=== PATIENT | female | born 1975 | race Caucasian/White ===

== ENCOUNTER 2018-10-31 16:24 | Outpatient (REF) | payer BC, SELFPAY ==
[2018-10-31 22:01] LABS: Vitamin B12 399 pg/mL (193-986)
[2018-10-31 22:47] LABS: Magnesium 2.1 mg/dL (1.8-2.4)
== END 2018-10-31 16:44 ==
LOC: NCHCN 16:24
PROVIDERS: PCP Nurse Practitioner Family; Visit Provider Nurse Practitioner Family
DX: E78.5 Hyperlipidemia, unspecified (principal); M54.5 Low back pain; R05 Cough; R41.840 Attention and concentration deficit; G43.909 Migraine, unspecified, not intractable, without status migrainosus; K58.9 Irritable bowel syndrome, unspecified; E66.3 Overweight; F41.8 Other specified anxiety disorders
CPT/HCPCS: 82565; 82607; 83735

== ENCOUNTER 2019-10-22 16:49 | Outpatient (REF) | payer OTHER, SELFPAY ==
[2019-10-22 22:11] LABS: ALT 22 U/L (14-59); AST 14 U/L (15-37); Albumin 3.8 g/dL (3.4-5.0); Alkaline Phosphatase 46 U/L (46-116); BUN 15 mg/dL (7-18); Bilirubin, Total 0.3 mg/dL (0.2-1.0); CREATININE 0.76 mg/dL (0.55-1.02); Calculated LDL 151 mg/dL; Chloride 109 mmol/L (98-107); Cholesterol 231 mg/dL (<200); Glucose 96 mg/dL (74-106); HDL Cholesterol 54 mg/dL (40-60); Magnesium 1.9 mg/dL (1.8-2.4); Sodium 146 mmol/L (136-145); Total Protein 6.9 g/dL (6.4-8.2); Triglyceride 131 mg/dL (<150); Vitamin B12 355 pg/mL (193-986)
== END 2019-10-22 17:09 ==
LOC: NCHCN 16:49
PROVIDERS: PCP Nurse Practitioner Family; Visit Provider Nurse Practitioner Family
DX: E78.5 Hyperlipidemia, unspecified (principal); R53.83 Other fatigue; G43.909 Migraine, unspecified, not intractable, without status migrainosus; K58.9 Irritable bowel syndrome, unspecified; R41.840 Attention and concentration deficit; J30.9 Allergic rhinitis, unspecified; L29.9 Pruritus, unspecified; K21.9 Gastro-esophageal reflux disease without esophagitis; Z00.00 Encounter for general adult medical examination without abnormal findings
CPT/HCPCS: 80053; 80061; 82607; 83735

== ENCOUNTER 2020-02-25 02:16 | Outpatient (CLI) | payer OTHER, SELFPAY ==
[2020-02-25 14:46] LABS: Iron 50 ug/dL (50-170); Total Iron Binding Capacity 303 ug/dL (250-450)
[2020-02-25 15:07] LABS: ALT 26 U/L (14-59); AST 18 U/L (15-37); Alkaline Phosphatase 55 U/L (46-116); Anion Gap 9.6 mmol/L (3-11); BUN 15 mg/dL (7-18); Bilirubin, Total 0.3 mg/dL (0.2-1.0); CO2 26.4 mmol/L (21.0-32.0); CREATININE 0.77 mg/dL (0.55-1.02); Calcium 9.2 mg/dL (8.5-10.1); Chloride 101 mmol/L (98-107); Ferritin 27 ng/mL (8-252); Glucose 90 mg/dL (74-106); Potassium 4.1 mmol/L (3.5-5.1); Sodium 137 mmol/L (136-145); TSH 1.32 uIU/mL (0.36-3.74); Total Protein 7.6 g/dL (6.4-8.2)
[2020-02-29 13:08] LABS: Celiac gene pairs present? Yes
== END 2020-02-25 02:36 ==
PROVIDERS: PCP Nurse Practitioner Family; Visit Provider Internal Medicine Gastroenterology
DX: K59.00 Constipation, unspecified (principal); K90.41 Non-celiac gluten sensitivity
CPT/HCPCS: 36415; 80053; 86816; 82728; 83540; 83550; 84443

== ENCOUNTER 2020-06-20 04:14 | Outpatient (CLI) | payer OTHER, SELFPAY ==
--- NOTE | 2020-06-20 08:30 | DI.RAD_ITS ---
EXAM: 2D digital imaging was performed. CLINICAL HISTORY: CONSTIPATION, K59.09, SITZ MARKER STUDY, ? COLONIC INTERTIA. COMPARISON: No exams were available for comparison TECHNIQUE: Supine views of the abdomen performed. FINDINGS: There is a moderate amount of stool in the colon. Sitz markers are present. They lie predominantly in the right abdomen. The majority of the markers appear to be in the cecum, ascending colon and pos sibly transverse colon. DATA REPOSITORY: RADIATION DOSE DELIVERED:
== END 2020-06-20 04:34 ==
PROVIDERS: PCP Nurse Practitioner Family; Visit Provider Internal Medicine Gastroenterology
DX: K59.09 Other constipation (principal)
CPT/HCPCS: 74018

== ENCOUNTER 2020-06-24 03:35 | Outpatient (CLI) | payer OTHER, SELFPAY ==
--- NOTE | 2020-06-24 08:40 | DI.RAD_ITS ---
EXAM: XR ABDOMEN FLAT PLATE CLINICAL HISTORY: CONSTIPATION,K59.09,SITZ MARKER STUDY, ? COLONIC INTERTIA TECHNIQUE: 2D digital imaging was performed. COMPARISON: CR XR ABDOMEN FLAT PLATE from 06/20/2020 FINDINGS: Moderate to increased quantity of stool is noted throughout the colon. Approximately 1/2 of the Sit z markers remain present in the right colon. There are 3 markers seen near the splenic flexure and t wo in the descending colon. Three markers are present in the region of the rectum. IMPRESSION: Increased quantity of stool. Slow colonic transit time.
== END 2020-06-24 03:55 ==
PROVIDERS: PCP Nurse Practitioner Family; Visit Provider Internal Medicine Gastroenterology
DX: K59.01 Slow transit constipation (principal)
CPT/HCPCS: 74018

== ENCOUNTER 2020-06-26 02:25 | Outpatient (CLI) | payer OTHER, SELFPAY ==
--- NOTE | 2020-06-26 08:51 | DI.RAD_ITS ---
EXAM: XR ABDOMEN FLAT PLATE INDICATION: SITZ MARKER STUDY,? COLONIC INERTIA. COMPARISON: CR XR ABDOMEN FLAT PLATE from 06/24/2020 TECHNIQUE: 2D digital imaging was performed. FINDINGS: A large quantity of stool is again noted throughout the colon. There is no small bowel dilatation. There is 1 Sitz marker in the region of the cecum. Two Sitz markers are seen in the transverse colo n. The remaining markers are noted in the descending colon. There are 2 markers in the rectum. IMPRESSION: Persistence of multiple Sitz markers, consistent with slow colonic transit time. Large quantity of s tool. DATA REPOSITORY: RADIATION DOSE DELIVERED:
== END 2020-06-26 02:45 ==
PROVIDERS: PCP Nurse Practitioner Family; Visit Provider Internal Medicine Gastroenterology
DX: R19.5 Other fecal abnormalities (principal)
CPT/HCPCS: 74018

== ENCOUNTER 2020-10-22 14:54 | Emergency (ER) | payer OTHER, SELFPAY ==
[2020-10-22 15:03] VITALS: BP 133/73; PULSE 95; RESP 16; O2SAT 100
[2020-10-22 15:13] LABS: Bilirubin Negative (Negative); Blood Trace-intact (Negative); Clarity Clear (Clear); Glucose Negative (Negative); Ketones Negative (Negative); Leukocyte Esterase Negative (Negative); Nitrite Negative (Negative); Urobilinogen 0.2 EU/dL (Up TO 0.2)
[2020-10-22 15:23] LABS: Bacteria Moderate HPF (Negative); C & S Indicated? Yes; Casts Negative LPF (Negative); Crystals Negative HPF (Negative); Epithelial Cells Few HPF (Negative); Mucus Negative (Negative); RBC 0-2 HPF (0-2); WBC 0-2 HPF (0-5)
--- NOTE | 2020-10-22 15:45 | DI.CT_ITS ---
EXAM: CT RENAL COLIC WO CLINICAL HISTORY: rt flank pain. TECHNIQUE: Imaging Protocol: Axial computed tomography images with coronal and sagittal reformatted images were created and reviewed. COMPARISON: No exams were available for comparison FINDINGS: ABDOMEN: Lung Bases: Normal where visualized. Liver: Normal density. No measurable mass. Gallbladder and biliary tract: No radiodense calculus or biliary ductal dilation. Pancreas: Normal density, no abnormal calcifications or inflammatory process. Spleen: Normal. Kidneys: Normal size, contour and axis.No radiodense stones or obstructive uropathy. No masses seen. Adrenal glands: No mass is seen. Lymph nodes: Within normal limits. Abdominal Aorta: Abdominal portion non-dilated. PELVIS: Bladder:Symmetric distention, no gross wall thickening. Bowel: No obstruction or bowel wall thickening. Appendix is unremarkable. Peritoneal cavity: No ascites, collection or mesenteric inflammatory response Reproductive organs: Within normal limits. Bones: Within normal limits. Soft Tissues: Within normal limits. IMPRESSION: No evidence of nephrolithiasis or hydronephrosis. RADIATION DOSE DELIVERED: 1,041.96mGy.cm Total DLP DATA REPOSITORY: All CT scans at this facility are submitted to the National Radiology Data Registry (NRDR) Dose Index Registry (DIR) with the [employer] (ACR). RADIATION OPTIMIZATION: All CT scans at this facility use at least one of these dose optimization te chniques: automated exposure control; mA and/or kV adjustment per patient size (includes targeted exa ms where dose is matched to clinical indication); or iterative reconstruction.
--- NOTE | 2020-10-22 15:45 | RT.EKG_ITS ---
APPROVED REPORT Exam: Resting ECG Patient Location: E HR:72 bpm ECG Measurements Heart Rate 72 AXIS SC 171 P 58 QRSd 98 QRS -24 QT 400 T 38 QTc 439 Conclusion Sinus rhythm...normal P axis, V-rate 60- 99
[2020-10-22 16:05] LABS: ALT 25 U/L (14-59); AST 18 U/L (15-37); Albumin 3.7 g/dL (3.4-5.0); Alkaline Phosphatase 44 U/L (46-116); Anion Gap 13.5 mmol/L (3-11); BUN 14 mg/dL (7-18); Bilirubin, Total 0.2 mg/dL (0.2-1.0); CO2 19.5 mmol/L (21.0-32.0); CREATININE 0.67 mg/dL (0.55-1.02); Calcium 8.7 mg/dL (8.5-10.1); Chloride 106 mmol/L (98-107); Glucose 96 mg/dL (74-106); Potassium 3.7 mmol/L (3.5-5.1); Sodium 139 mmol/L (136-145); Total Protein 7.5 g/dL (6.4-8.2)
[2020-10-22] MEDS: Ketorolac 15 MG/ML VIAL IVP (16:09)
[2020-10-22] MEDS: Lactated Ringers 1,000 ML 125 ML IV (16:09)
[2020-10-22 16:11] LABS: Abs Immature Grans 0.01 10^3/uL (0.0-0.06); Absolute Basophil Count 0.04 10^3/uL (0.0-0.2); Absolute Lymphocyte Count 1.54 10^3/uL (1.2-3.4); Absolute Monocyte Count 0.47 10^3/uL (0.1-0.8); Absolute Neutrophil Count 4.59 10^3/uL (1.2-6.7); Basophils % 0.6; Eosinophils % 2.9; HCT 45.7 % (36.0-46.0); HGB 15.3 g/dL (11.2-15.7); Immature Grans % 0.1; Lymphocytes % 22.5; MCHC 33.5 % (32.0-36.0); MCV 92.5 fL (80-95); Monocytes % 6.9; Nucleated RBC 0 %; Platelet Count 282 10^3/uL (130-400); RBC 4.94 10^6/uL (3.93-5.22); WBC 6.85 10^3/uL (4.4-10.8)
--- NOTE | 2020-10-22 16:30 | ED.GENADUL_ITS ---
Discharge Plan Disposition Patient Disposition: HOME Condition: Stable Discharge Details Clinical Impression: Prolonged QT interval, Acute right flank pain Primary Care Provider: Rachel Murray ED Provider: Sunday Corrigan Home Meds and New Rx's Prescriptions: Continued esomeprazole magnesium [Nexium] 40 mg capsule,delayed release(DR/EC) 40 mg PO DAILY RF: 0 sennosides [Natural Senna Laxative] 8.6 mg tablet 8.6 mg PO DAILY PRNRF: 0 gabapentin 300 mg capsule 300 mg PO TID RF: 0 multivitamin [Daily Multi-Vitamin] 1 EACH tablet 1 ea PO DAILY RF: 0 ibuprofen 800 MG tablet 800 mg PO TID PRN PRNQty: 20 RF: 0 acetaminophen [Mapap Extra Strength] 500 MG tablet 1 tab PO PRN PRNRF: 0 Discontinued amitriptyline 25 mg tablet 25 mg PO QHS Qty: 30 RF: 3 Discharge Instructions Additional Instructions: Please stop taking amitriptyline given prolonged QT interval noted on ECG. Discuss ongoing headache management with your neurologist. Please contact your primary care physician to arrange follow-up. Return to the ER for any worsening or new concerning symptoms. Referrals: Rachel Murray [Primary Care Provider] - Medical Decision Making 1636??45-year-old female here with right flank pain that started yesterday, feels like an ache. No associated anorexia. Abdominal exam is benign. Consider renal colic and ureteral stone versus musculoskeletal versus other. Urinalysis was reviewed and is not consistent with infectious process. Plan to obtain CT of the abdomen pelvis to assess for acute surgical pathology. Toradol 15 mg IV for pain. Patient also notes that she has had some dizzy spells when she is taking her amitriptyline for her headaches which she started recently. I did obtain an ECG and she has a prolonged QTc interval at 465. I will recommend that she stop taking nortriptyline and discuss this with her doctor. 172 --CT the abdomen pelvis was reviewed and interpreted by radiology: No renal ureteric or urinary bladder calculus. No hydronephrosis. No free air and no significant fluid collection. Vasculature unremarkable with no abdominal aortic aneurysm. Reproductive findings unremarkable. No other concerning findings noted. Labs reviewed and nondiagnostic. No leukocytosis. Suspect musculoskeletal etiology. Plan for discharge with outpatient follow-up. I do think she should be reassessed later this week by primary care physician. Disposition decision was made weighing the risks and benefits of hospitalization versus outpatient treatment, the risk for further decompensation, and the patient's wishes. The patient was stable and requested discharge. Prior to discharge, my usual and customary return precautions were reviewed with the patient - this included follow-up instructions and reason to return to the emergency department if condition worsens, does not improve as expected, or other new concerns arise. HPI General Mode of arrival: ambulatory . Date/Time Provider Initiated Documentation: 10/22/20 15:40 . Limitations to Documentation: no limitations . Information obtained by: patient . HPI Narrative: 45-year-old female with history of asthma, anxiety, depression, GERD, migraine headaches, presents with chief complaint of right flank pain that radiates to her lower right abdomen. Pain started in her back yesterday around 4 PM and has migrated lower and left around her flank to lower abdomen. Pain is moderate to severe and feels sharp. She has no associated fever. No dysuria or hematuria. No nausea vomiting. No chest pain or shortness of breath. Related Data Home Medications Medication Instructions Recorded Confirmed multivitamin [Daily Multi-Vitamin] 1 ea PO DAILY 02/09/13 10/22/20 ibuprofen 800 mg PO TID PRN PRN #20 tab 03/30/13 10/22/20 acetaminophen [Mapap Extra 1 tab PO PRN PRN 01/05/15 10/22/20 Strength] esomeprazole magnesium 40 mg 40 mg PO DAILY 08/26/20 10/22/20 capsule,delayed release gabapentin 300 mg capsule 300 mg PO TID 08/26/20 10/22/20 sennosides 8.6 mg tablet 8.6 mg PO DAILY PRN 08/26/20 10/22/20 Previous Rx's Medication Instructions Recorded ibuprofen 800 mg PO TID PRN PRN #20 tab 03/30/13 Allergies Allergy/AdvReac Type Severity Reaction Status Date / Time No Known Allergies Allergy Unverified 10/22/20 15:09 General Stated Complaint: Urinary LANE: 3 Review of Systems All systems reviewed & are unremarkable except as noted in HPI and below Constitutional Constitutional: Denies fever(s) Genitourinary Genitourinary: Reports as per HPI FORMERLY [facility], [facility] Medical History Asthma Depression Gastroesophageal reflux disease Hyperlipidemia IBS (irritable bowel syndrome) Migraine headache without aura Surgical History Arthroplasty of knee Dilation and curettage x3 Repair ankle Family History Mother Personal history of malignant neoplasm Breast Cancer Father Hypertensive disorder, systemic arterial Heart disease Sister Hypertensive disorder, systemic arterial Heart disease Social History Smoking/Tobacco Use Status: Never Smoking risk assessment performed?: Yes Alcohol Intake: current Alcohol Intake frequency: 3 or more drinks per day Drug use: Never Substance use type: does not use Household members: significant other Housing: house Number of Children: 2 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 Pets and animals: Yes Pets and animals: cat(s) What type of physical activity do you participate in: none Seatbelt use: always Do you feel safe at home: Yes Do you feel safe in your relationship?: Yes History History Para 2 Hx # Term Pregnancies Multiple births Hx # Pregnancies Ectopic pregnancies AB induced Hx Number of Living Children AB spontaneous Exam Const General: cooperative and no acute distress HENMT Mouth: moist mucous membranes Eyes Conjunctivae: normal conjunctivae Sclera: normal sclerae Neck Neck: trachea midline and supple Resp Auscultation: clear to auscultation bilaterally, no rales, no rhonchi and no wheezes Cardio Rate: regular rate and not tachycardic Rhythm: regular rhythm GI Palpation: soft, not firm, no guarding, no masses, not rigid and nontender Back/Spine/Pelvis Back: CVA tenderness (rt) Sacrum: no ecchymosis, no erythema and no swelling Coccyx: no tenderness Skin General skin exam: no rashes or lesions noted Neuro General: patient alert, patient awake, patient oriented x3 and tone normal Extrem General: no edema Psych Appearance: grossly normal Mental Status: mental status grossly normal Course Vital Signs Vital signs: Vital Signs Pulse 95 H 10/22/20 15:03 Respiratory Rate 16 10/22/20 15:03 Blood Pressure 133/73 10/22/20 15:03 Pulse Oximetry 100 10/22/20 15:03 Pulse 95 H 10/22/20 15:03 Respiratory Rate 16 10/22/20 15:03 Respiratory Effort Non-Labored 10/22/20 15:06 Blood Pressure 133/73 10/22/20 15:03 Blood Pressure Position Sitting 10/22/20 15:03 Pulse Oximetry 100 10/22/20 15:03 Oxygen Delivery Method Room Air 10/22/20 15:03 Oxygen Flow Rate 0 10/22/20 15:03 Pain Level 4 10/22/20 15:07 Comment 10/22/20 15:03 Lab/Test Results Lab/Test Results: 10/22/20 15:00 Urine - Reflex from Ua Urine Culture - Pending Laboratory Tests Range/Units 10/22/20 10/22/20 10/22/20 15:00 15:35 16:05 WBC (4.4-10.8) 10^3/uL 6.85 RBC (3.93-5.22) 10^6/uL 4.94 Hgb (11.2-15.7) g/dL 15.3 Hct (36.0-46.0) % 45.7 MCV (80-95) fL 92.5 MCH (27.0-33.0) pg 31.0 MCHC (32.0-36.0) % 33.5 RDW (11.7-14.6) % 13.0 Plt Count (130-400) 10^3/uL 282 MPV (8.0-11.0) fL 10.0 Immature Gran % 0.1 Neutrophils % 67.0 Lymphocytes % 22.5 Monocytes % 6.9 Eosinophils % 2.9 Basophils % 0.6 Nucleated RBC % % 0 Absolute Neutrophils (1.2-6.7) 10^3/uL 4.59 Absolute Lymphocytes (1.2-3.4) 10^3/uL 1.54 Absolute Monocytes (0.1-0.8) 10^3/uL 0.47 Absolute Eosinophils (0.0-0.7) 10^3/uL 0.20 Absolute Basophils (0.0-0.2) 10^3/uL 0.04 Sodium (136-145) mmol/L 139 Potassium (3.5-5.1) mmol/L 3.7 Chloride (98-107) mmol/L 106 Carbon Dioxide (21.0-32.0) mmol/L 19.5 L Anion Gap (3-11) mmol/L 13.5 H BUN (7-18) mg/dL 14 Creatinine (0.55-1.02) mg/dL 0.67 Estimated GFR/1.73 m2 (mL/min/1.73m2) >= 60.00 Glucose (74-106) mg/dL 96 Calcium (8.5-10.1) mg/dL 8.7 Total Bilirubin (0.2-1.0) mg/dL 0.2 AST (15-37) U/L 18 ALT (14-59) U/L 25 Alkaline Phosphatase (46-116) U/L 44 L Total Protein (6.4-8.2) g/dL 7.5 Albumin (3.4-5.0) g/dL 3.7 Urine Color (Yellow) Yellow Urine Clarity (Clear) Clear Urine pH (5-8) 7.0 Ur Specific [place] (1.005-1.025) 1.020 Urine Protein (Negative) mg/dL Negative Urine Ketones (Negative) mg/dL Negative Urine Blood (Negative) Trace-intact H Urine Nitrite (Negative) Negative Urine Bilirubin (Negative) Negative Urine Urobilinogen (Up TO 0.2) EU/dL 0.2 Ur Leukocyte Esterase (Negative) Negative Urine RBC (0-2) HPF 0-2 Urine WBC (0-5) HPF 0-2 Ur Epithelial Cells (Negative) HPF Few Urine Crystals (Negative) HPF Negative Urine Bacteria (Negative) HPF Moderate Urine Casts (Negative) LPF Negative Urine Mucus (Negative) Negative Ur Culture Indicated? Yes Urine Glucose (Negative) mg/dL Negative POC Urine Test Start: 10/22/20 15:07 Freq: Status: Complete Protocol: Document 10/22/20 15:09 ALBERTINA (Rec: 10/22/20 15:09 [id number]) Test(Urine)-POC POC- Test(urine) Negative POC- Test(urine) Negative
--- NOTE | 2020-10-22 16:35 | DI.VRAD_ITS ---
PROCEDURE INFORMATION: Exam: CT Abdomen And Pelvis Without Contrast Exam date and time: 10/22/2020 3:57 PM Age: 45 years old Clinical indication: Abdominal pain; Flank; Right TECHNIQUE: Imaging protocol: Computed tomography of the abdomen and pelvis without contrast. COMPARISON: CT ABD PELVIS WITH CONTRAST 03/29/2016 8:26 AM FINDINGS: Lungs: The visualized lung bases are clear. Liver: Normal. No mass. Gallbladder and bile ducts: Normal. No calcified stones. No ductal dilation. Pancreas: Normal. No ductal dilation. Spleen: Normal. No splenomegaly. Adrenal glands: Normal. No mass. Kidneys and ureters: No renal, ureteric, or urinary bladder calculus. No hydronephrosis. Stomach and bowel: Unremarkable. No obstruction. No mucosal thickening. Appendix: Normal appendix. No acute appendicitis. Intraperitoneal space: Unremarkable. No free air. No significant fluid collection. Vasculature: Unremarkable. No abdominal aortic aneurysm. Lymph nodes: Unremarkable. No enlarged lymph nodes. Urinary bladder: Unremarkable as visualized. Reproductive: Unremarkable as visualized. Bones/joints: Unremarkable. No acute fracture. Soft tissues: Unremarkable. IMPRESSION: 1. No renal, ureteric, or urinary bladder calculus. No hydronephrosis. Dictated and Authenticated by: Vel Coburn MD. Ordering:LAZARA Brand MD
[2020-10-22 17:41] VITALS: BP 127/73; PULSE 79; TEMP 36.8; O2SAT 98
[2020-10-22] MEDS: Normal Saline Flush 10 ML SYR IVP (17:41)
--- NOTE | 2020-10-22 17:51 | NUR.NOTE ---
referral faxed to [facility] for PCP f/u for 10/24/20.Nursing Note:
== END 2020-10-22 17:48 | disposition home or self-care (01) ==
PROVIDERS: Emergency Provider Student in an Organized Health Care Education/Training Program; PCP Nurse Practitioner Family
DX: R94.31 Abnormal electrocardiogram [ECG] [EKG] (principal); R42 Dizziness and giddiness; T43.015A Adverse effect of tricyclic antidepressants, initial encounter; M54.5 Low back pain; R10.31 Right lower quadrant pain; Z87.440 Personal history of urinary (tract) infections
CPT/HCPCS: 36415; 80053; 93005; 96361; 96374; 99285; 74176; 81003; 81015; 85025; 87086; 93010; 99284; J1885

== ENCOUNTER 2021-06-09 03:24 | Outpatient (CLI) | payer OTHER, SELFPAY ==
--- NOTE | 2021-06-09 | DI.MAMMO_ITS ---
Exam(s) MAMMO SCREENING EXAM: MAMMO SCREENING CLINICAL HISTORY: SCREENING, Z12.31, FAM HX BREAST CA, Z80.3 TECHNIQUE: Mammograms were interpreted according to the usual protocol including computer analysis w [employer] CAD system, tomosynthesis and C-view imaging. COMPARISON: 2012 FINDINGS: The breasts are composed of heterogeneously dense fibroglandular densities, Breast Density category C . No suspicious microcalcifications are seen. There is a circumscribed nodule seen in the subareolar r egion of the left breast, not present on the previous exam. Ultrasound is recommended for further ev aluation.. No skin thickening or abnormal axillary lymph nodes are seen. IMPRESSION: BI-RADS Cat 0 - Assessment Incomplete: Need additional imaging evaluation. Left breast ultrasound i s recommended. Breast Density Category C, heterogeneously Dense. The mammogram demonstrates the patient's breast tissue is dense. Dense breast tissue is very common a nd is not abnormal but dense breast tissue can make it harder to find cancer on a mammogram. Also, de nse breast tissue may increase breast cancer risk. This information about the result of the mammogram report was provided to the patient to raise their awareness. Use this report when you speak with the patient about their risks for breast cancer, which includes their family history. At that time, you may recommend additional screening tests (Ultrasound or MRI) as they might be useful based on their r isk. A negative radiographic report should not delay biopsy if a dominant or clinically suspicious mass is present. Up to ten percent of cancers are not identified on mammography. A negative report may reinforce clinical impression. Adenosis and dense breasts may obscure an underlying neoplasm. False positive reports average 6 to 10%.
== END 2021-06-09 03:44 ==
PROVIDERS: PCP Nurse Practitioner Family; Visit Provider Nurse Practitioner Family
DX: Z12.31 Encounter for screening mammogram for malignant neoplasm of breast (principal); Z80.3 Family history of malignant neoplasm of breast; R92.8 Other abnormal and inconclusive findings on diagnostic imaging of breast; N63.42 Unspecified lump in left breast, subareolar
CPT/HCPCS: 77063; 77067

== ENCOUNTER 2021-09-07 14:49 | Outpatient (CLI) | payer OTHER, SELFPAY ==
--- NOTE | 2021-09-07 | DI.RAD_ITS ---
Exam(s) XR CHEST 2V PA LATERAL EXAM: XR CHEST 2V PA LATERAL CLINICAL HISTORY: SOB, R06.02, H/O COVID, ? PNEUMONIA TECHNIQUE: 2D digital imaging was performed. COMPARISON: No exams were available for comparison FINDINGS: MEDIASTINUM: Normal. HEART: Normal. PULMONARY VASCULATURE: Normal. LUNGS: Clear. No infiltrates are visible. PLEURAL SPACE: No pleural effusion or pneumothorax. BONE:Unremarkable for age. IMPRESSION: No acute abnormality. DATA REPOSITORY: RADIATION DOSE DELIVERED:
== END 2021-09-07 15:09 ==
PROVIDERS: PCP Nurse Practitioner Family; Visit Provider Nurse Practitioner Family
DX: R06.02 Shortness of breath (principal)
CPT/HCPCS: 71046

== ENCOUNTER 2021-10-06 16:05 | Outpatient (REF) | payer OTHER, SELFPAY ==
[2021-10-06 15:02] LABS: Abs Immature Grans 0.02 10^3/uL (0.0-0.06); Absolute Basophil Count 0.08 10^3/uL (0.0-0.2); Absolute Eosinophil Count 0.13 10^3/uL (0.0-0.7); Absolute Lymphocyte Count 1.28 10^3/uL (1.2-3.4); Absolute Monocyte Count 0.66 10^3/uL (0.1-0.8); Absolute Neutrophil Count 4.42 10^3/uL (1.2-6.7); Basophils % 1.2; HCT 42.8 % (36.0-46.0); HGB 14.1 g/dL (11.2-15.7); Immature Grans % 0.3; Lymphocytes % 19.4; MCH 30.5 pg (27.0-33.0); MCHC 32.9 % (32.0-36.0); MCV 92.6 fL (80-95); MPV 10.7 fL (8.0-11.0); Neutrophils % 67.1; Nucleated RBC 0 %; Platelet Count 326 10^3/uL (130-400); RBC 4.62 10^6/uL (3.93-5.22); RDW 13.5 % (11.7-14.6); RDW-SD 45.7 fL; WBC 6.59 10^3/uL (4.4-10.8)
[2021-10-06 15:32] LABS: ALT 25 U/L (14-59); AST 16 U/L (15-37); Albumin 3.9 g/dL (3.4-5.0); Alkaline Phosphatase 58 U/L (46-116); Anion Gap 11.7 mmol/L (3-11); BUN 17 mg/dL (7-18); Bilirubin, Total 0.2 mg/dL (0.2-1.0); CO2 21.3 mmol/L (21.0-32.0); CREATININE 0.8 mg/dL (0.55-1.02); Calcium 9.3 mg/dL (8.5-10.1); Chloride 107 mmol/L (98-107); Glucose 78 mg/dL (74-106); Potassium 4.2 mmol/L (3.5-5.1); Sodium 140 mmol/L (136-145); TSH (W/Ref FT4) 1.35 uIU/mL (0.36-3.74); Total Protein 6.9 g/dL (6.4-8.2)
== END 2021-10-06 16:06 | disposition home or self-care (01) ==
LOC: NCHCN 16:05
PROVIDERS: PCP Nurse Practitioner Family; Visit Provider Nurse Practitioner Family
DX: E78.5 Hyperlipidemia, unspecified (principal); R53.83 Other fatigue; E66.3 Overweight
CPT/HCPCS: 80053; 84443; 85025

== ENCOUNTER 2022-06-01 09:54 | Outpatient (REF) | payer OTHER, SELFPAY ==
--- NOTE | 2022-06-01 08:15 | PAPFT_PTH ---
PATIENT: Cata Griggs LOC: [facility]#:[id number] AGE/SX: 47/F ROOM: RE06/01/[address]: Rachel Murray : 1975 BED: DIS: 06/01/2022 SPEC #: [id number] RECD: 06/01/22 15:01 STATUS: PORFIRIO DOZIER #: [id number] BELEN: 06/01/22 08:[address]: Rachel Murray DEPT: [facility] Cytology RECD BY: Nicole Diaz Tissues: 1 - CX/ENDOCX FOR PAP SMEARS Procedures: PAP THIN PREP/UVM Screening HPV DNA PROBE Comments: [id number]
[2022-06-01 16:54] LABS: Calculated LDL 154 mg/dL (<100); Cholesterol 230 mg/dL (<200); HDL Cholesterol 56 mg/dL (40-60); Magnesium 2.1 mg/dL (1.8-2.4); Triglyceride 104 mg/dL (<150); Vitamin B12 595 pg/mL (193-986)
== END 2022-06-01 09:55 | disposition home or self-care (01) ==
LOC: NCHCN 09:54
PROVIDERS: PCP Nurse Practitioner Family; Visit Provider Nurse Practitioner Family
DX: E78.5 Hyperlipidemia, unspecified; K21.9 Gastro-esophageal reflux disease without esophagitis; G43.909 Migraine, unspecified, not intractable, without status migrainosus; F41.8 Other specified anxiety disorders; I45.81 Long QT syndrome; R07.9 Chest pain, unspecified; M79.671 Pain in right foot; Z12.4 Encounter for screening for malignant neoplasm of cervix; Z11.51 Encounter for screening for human papillomavirus (HPV)
CPT/HCPCS: 80061; 88142; 82607; 83735; 87624

== ENCOUNTER → 2022-06-14 02:33 | Outpatient (CLI) | payer OTHER, SELFPAY ==
--- NOTE | 2022-06-14 12:20 | DI.MAMMO_ITS ---
Exam(s) MAMMO SCREENING EXAM: MAMMO SCREENING CLINICAL HISTORY: SCREENING, Z12.31,FAMILY H/O BREAST CA,Z80.3,FIBROADENOMA,D24.9 TECHNIQUE: Bilateral full field digital CC and MLO mammographic images were obtained with 3D tomosyn thesis and utilizing computer aided detection (CAD). COMPARISON: Available for comparison. FINDINGS: Masses/Architectural Distortion: No suspicious masses or areas of architectural distortion are seen. There is a stable nodule in the retroareolar region of the left breast. The nodule now contains a b iopsy clip. Microcalcifications: No suspicious pleomorphic-type are seen. Skin Thickening/Nipple Retraction: None. IMPRESSION: 1. No significant interval change with no specific features of malignancy noted. 2. Unless there is more urgent need, screening mammography is recommended, as per [employer] guidelines. BI-RADS Category 2 - Benign Findings Breast Density - Category C - Heterogeneously dense Breast density category C or D implies that the patient has dense breast tissue. Dense breast tissue is very common and is not abnormal but dense breast tissue can make it harder to find cancer on a ma mmogram. Also, dense breast tissue may increase their breast cancer risk. This information about the result of the mammogram report was provided to the patient to raise their awareness. Use this report when you speak with the patient about their risks for breast cancer, which includes their family hist ory. At that time, you may recommend for more screening tests (Ultrasound or MRI) as they might be us eful based on their risk. A negative radiographic report should not delay biopsy if a dominant or clinically suspicious mass is present. Up to ten percent of cancers are not identified on mammography. A negative report may reinforce clinical impression. Adenosis and dense breasts may obscure an underlying neoplasm. False positive reports average 6 to 10%. Patient will receive a letter notifying them of these results.
== END ==
PROVIDERS: PCP Nurse Practitioner Family; Visit Provider Nurse Practitioner Family
DX: Z12.31 Encounter for screening mammogram for malignant neoplasm of breast (principal); R92.8 Other abnormal and inconclusive findings on diagnostic imaging of breast
CPT/HCPCS: 77063; 77067

== ENCOUNTER 2023-05-10 14:34 | Outpatient (CLI) | payer OTHER, SELFPAY ==
--- NOTE | 2023-05-10 14:00 | DI.RAD_ITS ---
Exam(s) XR HIP PELVIS ADULT BL EXAM: XR HIP PELVIS ADULT BL CLINICAL HISTORY: bilateral hip pain. TECHNIQUE: 2D digital imaging was performed. COMPARISON: No exams were available for comparison FINDINGS: 3 views No evidence of pelvic nor hip fracture. No obvious degenerative changes in the hips. No evidence of hip dysplasia. No evidence of avascular necrosis. No osteophytes. Bone density normal. No osseou s lesions. SI joints unremarkable. IMPRESSION: No significant osseous findings in the pelvis and hips. DATA REPOSITORY: RADIATION DOSE DELIVERED:
== END 2023-05-10 14:35 | disposition home or self-care (01) ==
LOC: DIORS 14:35
PROVIDERS: PCP Nurse Practitioner Family; Referring Provider Nurse Practitioner Family; Visit Provider Student in an Organized Health Care Education/Training Program
DX: M25.551 Pain in right hip (principal); M25.552 Pain in left hip
CPT/HCPCS: 73521

== ENCOUNTER 2023-06-09 16:20 | Outpatient (REF) | payer OTHER, SELFPAY ==
[2023-06-09 20:47] LABS: ESR 18 mm/hr (0-20)
[2023-06-09 20:48] LABS: Abs Immature Grans 0.02 10^3/uL (0.0-0.06); Absolute Basophil Count 0.05 10^3/uL (0.0-0.2); Absolute Eosinophil Count 0.09 10^3/uL (0.0-0.7); Absolute Monocyte Count 0.65 10^3/uL (0.1-0.8); Absolute Neutrophil Count 4.13 10^3/uL (1.2-6.7); Basophils % 0.8; Eosinophils % 1.4; HCT 43.5 % (36.0-46.0); HGB 14.6 g/dL (11.2-15.7); Immature Grans % 0.3; Lymphocytes % 24.5; MCH 31.1 pg (27.0-33.0); MCHC 33.6 % (32.0-36.0); MCV 93 fL (80-95); MPV 10.5 fL (8.0-11.0); Monocytes % 9.9; Neutrophils % 63.1; Platelet Count 329 10^3/uL (130-400); RBC 4.69 10^6/uL (3.93-5.22); RDW 13.3 % (11.7-14.6); RDW-SD 44.9 fL; WBC 6.54 10^3/uL (4.4-10.8)
[2023-06-09 21:07] LABS: Total Iron Binding Capacity 314 ug/dL (250-450)
[2023-06-09 21:23] LABS: ALT 29 U/L (14-59); AST 18 U/L (15-37); Albumin 3.8 g/dL (3.4-5.0); Alkaline Phosphatase 56 U/L (46-116); Anion Gap 8.7 mmol/L (3-11); BUN 11 mg/dL (7-18); Bilirubin, Total 0.3 mg/dL (0.2-1.0); CO2 26.3 mmol/L (21.0-32.0); CREATININE 0.8 mg/dL (0.55-1.02); Calcium 9.3 mg/dL (8.5-10.1); Chloride 102 mmol/L (98-107); Estimated GFR 90.27 (mL/min/1.73m2); Ferritin 27 ng/mL (8-252); Glucose 109 mg/dL (74-106); Magnesium 1.9 mg/dL (1.8-2.4); Sodium 137 mmol/L (136-145); TSH (W/Ref FT4) 1.48 uIU/mL (0.36-3.74); Vitamin B12 628 pg/mL (193-986)
[2023-06-09 21:33] LABS: C-Reactive Protein 0.28 mg/dL (0.0-0.3)
[2023-06-09 22:25] LABS: Iron 79 ug/dL (50-170)
[2023-06-10 18:42] LABS: Rheumatoid Factor <8.6 IU/mL (<12.0)
[2023-06-13 10:01] LABS: Lyme Ab w Rflx to Lyme Confirm Negative (Negative)
[2023-06-13 11:02] LABS: CA 125 16 U/mL (<30)
[2023-06-13 14:25] LABS: ANA Interpretation Negative (Negative)
[2023-06-14 07:39] LABS: Anaplasma phagocytophilum Negative (Negative); B. miyamotoi PCR Negative (Negative); Babesia divergens/MO-1 Negative (Negative); Babesia duncani Negative (Negative); Babesia microti Negative (Negative); Ehrlichia chaffeensis Negative (Negative); Ehrlichia ewingii/canis Negative (Negative); Ehrlichia muris eauclairensis Negative (Negative)
== END 2023-06-09 16:21 | disposition home or self-care (01) ==
LOC: NCHCN 16:20
PROVIDERS: PCP Nurse Practitioner Family; Visit Provider Nurse Practitioner Family
DX: Z00.00 Encounter for general adult medical examination without abnormal findings (principal); M15.0 Primary generalized (osteo)arthritis; R14.0 Abdominal distension (gaseous); N95.1 Menopausal and female climacteric states; I45.81 Long QT syndrome; G43.909 Migraine, unspecified, not intractable, without status migrainosus; G89.29 Other chronic pain
CPT/HCPCS: 80053; 85652; 86304; 87798; 82607; 82728; 83540; 83550; 83735; 84443; 85025; 86038; 86140; 86431; 86618

== ENCOUNTER 2023-08-09 18:27 | Outpatient (REF) | payer OTHER, SELFPAY ==
[2023-08-09 15:28] LABS: Abs Immature Grans 0.02 10^3/uL (0.0-0.06); Absolute Basophil Count 0.06 10^3/uL (0.0-0.2); Absolute Eosinophil Count 0.06 10^3/uL (0.0-0.7); Absolute Lymphocyte Count 1.73 10^3/uL (1.2-3.4); Absolute Monocyte Count 0.64 10^3/uL (0.1-0.8); Absolute Neutrophil Count 5.62 10^3/uL (1.2-6.7); Basophils % 0.7; Eosinophils % 0.7; HCT 45.3 % (36.0-46.0); HGB 15.1 g/dL (11.2-15.7); Immature Grans % 0.2; Lymphocytes % 21.3; MCHC 33.3 % (32.0-36.0); MCV 93 fL (80-95); MPV 9.9 fL (8.0-11.0); Monocytes % 7.9; Neutrophils % 69.2; Platelet Count 400 10^3/uL (130-400); RBC 4.87 10^6/uL (3.93-5.22); RDW-SD 44.8 fL; WBC 8.13 10^3/uL (4.4-10.8)
== END 2023-08-09 18:28 | disposition home or self-care (01) ==
LOC: NCHCN 18:27
PROVIDERS: PCP Nurse Practitioner Family; Visit Provider Nurse Practitioner Family
DX: K21.9 Gastro-esophageal reflux disease without esophagitis (principal); M54.50 Low back pain, unspecified; F41.8 Other specified anxiety disorders; M76.61 Achilles tendinitis, right leg; N95.1 Menopausal and female climacteric states; M15.0 Primary generalized (osteo)arthritis; R23.8 Other skin changes
CPT/HCPCS: 85025

== ENCOUNTER → 2023-10-04 01:13 | Outpatient (CLI) | payer OTHER, SELFPAY ==
--- OUTSIDE RECORDS SUMMARY | 2023-10-04 01:14 | XMS_ITS | Continuity of Care Document ---
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 Name Role Phone Any Robbins Primary Care Physician Encounter [facility] Date(s): 07/05/23 - 07/05/23 [facility] [address] [place] [address] Discharge Disposition: Home or Self Care Attending Physician: Trevor Dudley MD Admitting Physician: Trevor Dudley MD Referring Physician: Trevor Dudley MD Allergies, Adverse Reactions, Alerts Substance Reaction Severity Status amoxicillin-clavulanate Unknown Acti ve Immunizations Given and Recorded Vaccine Date Status Refusal Reason SARS-CoV-2 (COVID-19) [id number] vaccine 12/08/20 R ecorded Medications acetaminophen 500 mg oral tablet 1,000 mg = 2 tab, Oral, every 6 hr, PRN as needed for pain, 0 Refill(s) Start Date: 08/25/22 Status: Ordered albuterol 90 mcg/inh aerosol inhaler 1 puffs, Inhale, every 4 hr, PRN as needed for wheezing, # 6.7 g, 0 Refill(s) Start Date: 08/25/22 Status: Ordered buPROPion 100 mg oral tablet 100 mg = 1 tab, Oral, BID, # 180 tab, 0 Refill(s) Start Date: 08/25/22 Status: Ordered erenumab-aooe 140 mg/mL subcutaneous solution 140 mg =, Subcutaneous, every month, # 1 mL, 0 Refill(s) Start Date: 08/25/22 Status: Ordered fluticasone 50 mcg inhalation powder 1 puffs, Inhale, BID, # 60 EA, 0 Refill(s) Start Date: 08/25/22 Status: Ordered gabapentin 300 mg oral capsule 300 mg = 1 cap, Oral, TID, # 30 cap, 0 Refill(s) Start Date: 08/25/22 Status: Ordered loratadine 10 mg oral capsule 10 mg = 1 cap, Oral, Daily, # 10 cap, 0 Refill(s) Start Date: 08/25/22 Status: Ordered multivitamin adult, oral tablet 1 tab, Oral, Daily, # 30 tab, 0 Refill(s) Start Date: 08/25/22 Status: Ordered NexIUM 40 mg oral delayed release capsule 40 mg = 1 cap, Oral, Daily, # 30 cap, 0 Refill(s) Start Date: 08/25/22 Status: Ordered prochlorperazine 5 mg oral tablet 2.5 mg = 0.5 tab, Oral, TID, # 11 tab, 0 Refill(s) Start Date: 08/25/22 Status: Ordered rizatriptan 10 mg oral tablet, disintegrating 10 mg = 1 tab, Oral, Once, PRN as needed for migraine headache, may repeat in 2 hours if response unsatisfactory, # 12 tab, 0 Refill(s) Start Date: 12/16/22 Status: Ordered senna (sennosides) 3 mg oral tablet, chewable 3 mg = 1 tab, Chewed, BID, PRN as needed for constipation, # 50 tab, 0 Refill(s) Start Date: 08/25/22 Status: Ordered zolpidem 5 mg oral tablet See Instructions, take 1-2PO night of sleep study if needed, # 2 tab, 0 Refill(s) Start Date: 08/26/22 Status: Ordered zolpidem 5 mg oral tablet See Instructions, take 1-2 PO night of sleep study if needed, # 2 tab, 0 Refill(s), Pharmacy: [id number] Start Date: 08/26/22 Status: Ordered Problem List Condition Confirmation Course Effective Dates Status H ealth Status Informant Gastroesophageal reflux disease Confirmed Active Medication overuse headache Confirmed Active Migraine headache without aura Confirmed Active Social History Social History Type Response Tobacco Never tobacco user T obacco Use:. Sex Female Patient Care team information Care Team Personnel Name: Any Robbins NP Position: No Access Member Role: Primary Care Physician Address: Address: [facility] [address] [place] [address]- Care Team Related Persons Name: TAYLOR CARBAJAL
--- NOTE | 2023-10-04 08:07 | DI.MAMMO_ITS ---
Exam(s) MAMMO SCREENING EXAM: MAMMO SCREENING CLINICAL HISTORY: SCREENING MAMMO Z12.31 FAM HX BREAST CANCER Z80.3. TECHNIQUE: Bilateral full field digital CC and MLO mammographic images were obtained with 3D tomosyn thesis and utilizing computer aided detection (CAD). COMPARISON: Prior mammograms were reviewed. FINDINGS: There has been no significant change in the appearance and distribution of the fibroglandular tissue. Again noted is an unchanged appearing nodule in the anterior left breast which contains a biopsy norma er clip, as was 1st evident on the mammogram of May 2022. There are no new spiculated masses nor malignant appearing microcalcification groups. There is no significant architectural distortion nor skin thickening-retraction. IMPRESSION: No radiographic evidence of malignancy. Stable appearance of the left breast nodule which contains a biopsy marker clip. BI-RADS Category 2 - Benign Findings Breast Density - Category C - Heterogeneously dense Breast density Category C or D implies that the patient has dense breast tissue. Dense breast tissue can make it harder to find cancer on a mammogram. Dense breast tissue is also associated with an incr eased risk of breast cancer. This information about the result of the mammogram report was provided to the patient to raise their awareness. Use this report when you speak with the patient about their risks for breast cancer, which includes their family history. At that time, you may recommend additional screening tests (Ultrasoun d or MRI) as these tests may add significant information. A negative radiographic report should not delay biopsy if a dominant or clinically suspicious mass is present. Up to ten percent of cancers are not identified on mammography. A negative report may reinforce clinical impression. Adenosis and dense breasts may obscure an underlying neoplasm. False positive reports average 6 to 10%. Patient will receive a letter notifying them of these results.
== END ==
PROVIDERS: PCP Nurse Practitioner Family; Visit Provider Nurse Practitioner Family
DX: Z12.31 Encounter for screening mammogram for malignant neoplasm of breast (principal)
CPT/HCPCS: 77063; 77067

== ENCOUNTER → 2023-12-01 03:23 | Outpatient (CLI) | payer OTHER, SELFPAY ==
--- NOTE | 2023-12-01 06:45 | DI.MRI_ITS ---
Exam(s) MR LOWER JOINT BI WO EXAM: MR LOWER JOINT BI WO CLINICAL HISTORY: L HIP PAIN,labral tear,trochanter bursitis,M70.62,S73.192a TECHNIQUE: Multiplanar multisequence MRI of Pelvis was performed COMPARISON: CR XR HIP PELVIS ADULT BL from 05/10/2023 FINDINGS: Bones: There is no fracture or contusion pattern. No bone marrow edema is seen. Joints: No significant joint effusion or gross labral defect is present. The SI joints and symphysis pubis are well maintained. No gross evidence of a labral tear. No paralabral cyst.. Musculotendinous structures: Mild edema in the soft tissues adjacent to the left greater chronic tro chanter could indicate mild gluteus medius/minimus tendinitis. No significant fluid in the trochante gail bursa. Moderate edema surrounding the right greater trochanter and gluteus medius and minimus te ndons consistent with tendonitis. Intrapelvic structures demonstrate no significant abnormality. IMPRESSION: Bilateral gluteus medius/minimus tendinitis, right greater than left. DATA REPOSITORY:
== END ==
PROVIDERS: PCP Nurse Practitioner Family; Visit Provider Student in an Organized Health Care Education/Training Program
DX: M76.01 Gluteal tendinitis, right hip (principal); M76.02 Gluteal tendinitis, left hip
CPT/HCPCS: 73721

== ENCOUNTER 2024-04-03 13:07 | Outpatient (REF) | payer OTHER, SELFPAY ==
[2024-04-03 14:48] LABS: Abs Immature Grans 0.01 10^3/uL (0.0-0.06); Absolute Basophil Count 0.05 10^3/uL (0.0-0.2); Absolute Eosinophil Count 0.15 10^3/uL (0.0-0.7); Absolute Lymphocyte Count 0.99 10^3/uL (1.2-3.4); Absolute Monocyte Count 0.38 10^3/uL (0.1-0.8); Absolute Neutrophil Count 4.82 10^3/uL (1.2-6.7); Basophils % 0.8 %; Eosinophils % 2.3 %; HCT 46.1 % (36.0-46.0); HGB 15.4 g/dL (11.2-15.7); Immature Grans % 0.2 %; Lymphocytes % 15.5 %; MCH 31.3 pg (27.0-33.0); MCHC 33.4 % (32.0-36.0); MCV 94 fL (80-95); Monocytes % 5.9 %; Neutrophils % 75.3 %; RBC 4.92 10^6/uL (3.93-5.22); RDW 13.2 % (11.7-14.6); RDW-SD 45.6 fL
[2024-04-03 15:41] LABS: ALT 52 U/L (14-59); AST 35 U/L (15-37); Albumin 4.1 g/dL (3.4-5.0); Alkaline Phosphatase 70 U/L (46-116); Anion Gap 9.1 mmol/L (3-11); BUN 24 mg/dL (7-18); Bilirubin, Total 0.4 mg/dL (0.2-1.0); CO2 28.9 mmol/L (21.0-32.0); CREATININE 0.7 mg/dL (0.55-1.02); Calcium 9.6 mg/dL (8.5-10.1); Calculated LDL 191 mg/dL (<100); Chloride 101 mmol/L (98-107); Cholesterol 294 mg/dL (<200); Glucose 96 mg/dL (74-106); HDL Cholesterol 76 mg/dL (40-60); Magnesium 2.1 mg/dL (1.8-2.4); Potassium 4.6 mmol/L (3.5-5.1); Sodium 139 mmol/L (136-145); Total Protein 7.7 g/dL (6.4-8.2); Triglyceride 139 mg/dL (<150); Vitamin B12 770 pg/mL (193-986)
[2024-04-03 16:51] LABS: Platelet Count 356 10^3/uL (130-400)
[2024-04-06 11:00] LABS: IgA 320 mg/dL (85-499); Interpretation (See Note); Tissue Transglutaminase IgA <4.0 CU (<20.0)
== END 2024-04-03 13:08 | disposition home or self-care (01) ==
LOC: NCHCN 13:07
PROVIDERS: PCP Nurse Practitioner Family; Visit Provider Nurse Practitioner Family
DX: Z00.00 Encounter for general adult medical examination without abnormal findings (principal); E78.5 Hyperlipidemia, unspecified; K90.41 Non-celiac gluten sensitivity; Z79.899 Other long term (current) drug therapy
CPT/HCPCS: 80053; 80061; 82784; 83516; 82607; 83735; 85025

== ENCOUNTER 2024-05-25 10:48 | Day surgery (SDC) | payer OTHER, SELFPAY ==
[2024-05-25] VITALS (18 sets, daily range): BP systolic 120–147; BP diastolic 50–92; PULSE 51–74; RESP 14–18; TEMP 35.9–36.4; O2SAT 74–98; BMI 31.7
--- NOTE | 2024-05-25 07:17 | W.PM.OP ---
Date of service: 05/25/24 Time of Service: 14:00 Operative Note Operative Note DATE OF PROCEDURE: 05/25/24 PRE-OP DIAGNOSIS: Right hip 1. Labral tear 2. Femoracetabular impingement 3. Iliotibial band syndrome 4. Trochanteric bursitis POST-OP DIAGNOSIS: same Right hip 1. Labral tear 2. Femoracetabular impingement 3. Iliotibial band syndrome 4. Trochanteric bursitis 5. Hip joint ?cartilaginous loose bodies PROCEDURE: Right hip 1. Arthroscopic labral debridement, CPT# 24147 3. Endoscopic iliotibial band release, CPT# 28622 4. Endoscopic trochanteric bursectomy, CPT# 77816 SURGEON: Trevor Dudley AFFILIATE MARKETING SPECIALIST: Drea Crockett ANESTHESIA TYPE: Local By Surgeon, General LMA/ETT and Primary Nerve Block (LEE) Refer to Anesthesia Record ESTIMATED BLOOD LOSS: 5 COMPLICATIONS: None Patient was transported to: PACU Patient's condition: stable Indications: Please see complete medical record for details. Findings: Possible hip hypermobility. Numerous intra-articular possibly cartilage loose bodies. Degenerative?type anterior and anterior superior labral tearing with anterior superior acetabular moderate grade chondromalacia. No focal cam lesion or hip impingement. Abundant hemorrhagic trochanteric bursitis. Intact gluteal tendons. Procedure Description: In the operating room, general and regional anesthesia were induced. The patient was positioned supine on the [place] table. All bony prominences were well-padded. Preoperative antibiotics were administered. The correct patient, procedure, and side of the procedure were all verified prior to incision. Initially, appropriate hip joint distraction was confirmed under sterile technique releasing suction seal with the hip in slight abduction by carefully placing an 18-gauge spinal needle into the hip joint and then injecting 10 cc of 0.25% bupivacaine containing epinephrine. The syringe was removed from the needle to allow for outflow of the water pressure, and instead numerous small loose bodies came out?white and appeared cartilaginous. The syringe was reattached in the joint space emptied of the 10 cc filling the syringe with numerous of these loose bodies. There was no hemorrhage or bloody fluid at all. The fluid, which was the bupivacaine, and loose bodies were then placed into a specimen cup and will be sent to the lab for pathology to evaluate these loose bodies. The needle was removed, provisional traction released, and the hip prepped and draped in the usual sterile fashion. Fluoroscopically, an anterolateral portal was established with hip under about 1 cm distraction. Traction start time as noted. Through the spinal needle, a nitinol wire was inserted and the needle removed. An 11 blade was used to create a portal sized incision about the Nitinol wire. A small 4 mm dilator was passed atraumatically over the nitinol wire through the capsule into the hip joint. The nitinol wire was removed. A 6 mm dilator was then passed over the smaller one into the hip joint and the initial dilator removed. The blunt end of a switching stick was then passed into the hip joint and the last dilator removed. The camera sleeve was then inserted over the switching stick, the switching stick removed, and the arthroscope attached to the camera sleeve. An initial dry arthroscopy of the hip joint confirmed appropriate viewing portal location about the equator laterally. Using a combination of fluoroscopic guidance and arthroscopic triangulation a modified mid anterior portal was established in a similar fashion with a spinal needle and sequential dilators. Care was taken to ensure the portal was in an appropriate position and outside the labrum. A banana blade was inserted anteriorly over half pipe. The capsule was released distal to the labrum working towards the anterolateral portal. The camera was then switched to the anterior portal, the anterolateral portal location was confirmed to be appropriate, and the banana blade brought in the anterolateral portal a small capsulotomy made here as well. The camera was then switched back to the anterolateral portal. A complete diagnostic arthroscopy of the hip was performed with relevant findings noted above. There were only a few remaining loose bodies that were vacuumed and suctioned out. There was some chondromalacia cartilage thinning and fraying of the anterior superior glenoid near the margin of the labrum with labral fraying from anterior through anterior superior, but otherwise intact and okay superior through posterior. Femoral head cartilage was a little thinned corresponding to the zone of injury, but was largely okay. No significant arthritis. The radiofrequency ablator and the mechanical shaver were used to debride both the cartilage and labrum to a more stable appropriate margin. The blunt end of a switching stick was left in the anterior portal, but appropriately withdrawn from hip joint. The camera was withdrawn similarly. Under direct visualization traction was gradually released at 41. The femoral head neck junction was inspected about the zone of labral injury. The hip was brought through internal rotation, external rotation, and deep flexion with rotation. There was no significant chondral injury, focal CAM lesion, or impingement on the labrum. The decision was made to omit any femoroplasty. The limited capsulotomy had well apposed tissue ends and was not formally closed. The hip was drained of arthroscopic fluid. 10 cc of 0.25% bupivacaine containing epinephrine was infiltrated about the subcutaneous tissue and deeply over the greater trochanter. A knife was used to incise the skin for distal anterolateral portal followed by blunt dissection subcutaneously. Under fluoroscopic guidance, a switching stick and arthroscope were inserted localizing the iliotibial band over the greater trochanter. Blunt dissection and the mechanical shaver were used to resect fat and overlying tissue about the center of the iliotibial band and carefully expose the anterior and posterior margins. Once there was adequate exposure of the IT band, the greater trochanter was again localized under fluoroscopic guidance with a spinal needle inserted through the skin down to bone. This central area was marked using the radiofrequency ablator. A [place] blade was brought in and used to create a 2 cm longitudinal incision in line with the IT band fibers as well as extending it in a cruciate fashion with 2 cm incisions anteriorly and posteriorly. The radiofrequency ablator was used to achieve hemostasis. The mechanical shaver was then used to debride the IT band released edges exposing the trochanteric bursa. There was abundant trochanteric bursitis. The mechanical shaver was then used to excise the trochanteric bursa taking care to protect musculature about the margins of the greater trochanter as well as neurovascular structures especially posteriorly. There was excellent visualization of the vastus lateralis as well as gluteus medius confirming appropriate bursa excision. The hip was brought through range of motion including internal and external rotation and there was no impinging iliotibial band tissue or remaining pathologic bursa. The viewing and working portals were switched and appropriate IT band release, trochanteric bursa excision, and hemostasis confirmed. Suction was used to remove fluid from the endoscopic space. 20 cc of 0.25% bupivacaine containing epinephrine was infiltrated about the portal sites. The portals were closed using 3-0 Monocryl in a buried fashion. Steri-Strips were applied over the incisions followed by Xeroform, 4 x 4 gauze, an ABD pad and secured with tape. The patient awoke from anesthesia without complication and was transferred to the recovery room in a stable condition.
--- NOTE | 2024-05-25 07:24 | PDOC.DSDIS_ITS ---
Date of service: 05/25/24 Time of Service: 16:00 Discharge Plan Disposition Patient Disposition: Home Condition: Stable Discharge Details Attending Provider: Trevor Dudley Primary Care Provider: Rachel Murray Home Meds and New Rx's Prescriptions: New naproxen 250 mg tablet 250 - 500 mg PO BID PRN (Reason: moderate pain and swelling) Qty: 40 0RF oxycodone 5 mg tablet 5 - 10 mg PO .q4-6h PRN (Reason: severe pain) Qty: 18 0RF aspirin 81 mg capsule 81 mg PO DAILY 14 Days Qty: 14 0RF Continued loratadine [Claritin] 10 mg tablet 10 mg PO DAILY fluticasone propionate 50 mcg/actuation spray,suspension 1 spray intranasal BID Rx Instructions: administer into each nostril polyethylene glycol 3350 [Miralax] 17 gram/dose powder 17 g PO DAILY Ajovy Autoinjector 225 mg/1.5 mL auto-injector 225 mg subcut QMONTH Qty: 1.5 11RF Nurtec ODT 75 mg tablet,disintegrating 75 mg PO ONCE PRN (Reason: migraine headache) Qty: 16 5RF Rx Instructions: as a single dose; no more than 1 tab per day; do not take more often than every 24 hours albuterol sulfate 90 mcg/actuation HFA aerosol inhaler 2 puff inhalation Q6H PRN magnesium oxide 500 mg capsule 500 mg PO DAILY prochlorperazine maleate 5 mg tablet See Rx Instructions PO TID PRN (Reason: headaches ) Qty: 30 3RF Rx Instructions: 5-10 mg PO three times a day PRN; vitamin B complex Tablet 1 tab PO DAILY Probiotic (B. coagulans) 10 billion cell capsule,delayed release(DR/EC) 10 cell PO DAILY paroxetine HCl [Paxil] 10 mg tablet 10 mg PO DAILY bupropion HCl [Wellbutrin SR] 100 mg tablet sustained-release 12 hr 200 mg PO DAILY esomeprazole magnesium [Nexium] 40 mg capsule,delayed release(DR/EC) 40 mg PO DAILY multivitamin [Daily Multi-Vitamin] 1 EACH tablet 1 ea PO DAILY acetaminophen [Mapap Extra Strength] 500 MG tablet 1 tab PO PRN PRN Discharge Instructions Additional Instructions: Surgery: Right hip arthroscopy with labral debridement and endoscopic iliotibial band release and trochanteric bursectomy Activity: Weightbearing as tolerated. May discontinue crutches as soon as comfortable. Avoid deep hip flexion for 4 weeks. No cutting, pivoting, or sports for 2-3 months. A physical therapy prescription will be sent electronically to start in about 3 weeks. Prescriptions: Aspirin 81 mg take 1 daily to prevent a blood clot [for 14 days], starting tomorrow Naproxen 250 mg take 1-2 every 12 hours with a meal as needed for moderate pain Oxycodone 5 mg take 1-2 every 4-6 hours as needed for severe pain You may use iumk-sgt-udsglsy Tylenol (acetaminophen) as needed for mild pain. These pain medications may be taken all at once or in different combinations as needed. Also, recommend Colace (docusate) as a stool softener as surgery and pain medicine cause constipation. You may try aqqi-iax-ocoxwsx diphenhydramine (Benadryl) 25-50 mg nightly as a sleep aid Dressings: Leave dressing in place for 3 days. May then remove and leave open to air or cover incisions with Band-Aids. Leave the sticky Steri-Strips in place until they fall off or remove them after you shower. May shower after 5 days. Follow-up: 10-[address] Dudley You may take off the leg compression stockings this evening at home. You may also leave them on a few days longer if you have a history of leg swelling or edema. Let us know right away if you develop any redness, drainage, fevers, chest pain, or trouble breathing. Do not drink alcohol or drive for at least 24 hours after anesthesia. Please call the office during business hours with any questions or concerns. Stand Alone Forms: Anesthesia Discharge Inst., Padma Torres (U) Referrals: Trevor Dudley MD [ [facility] STAFF PHYSICIAN] - 06/06/24 9:30 am Discharge Orders Discharge Orders: Discharge Order (Routine); Ordered 05/25/24 Ordered By: Drea Crockett DS: Diagnosis Discharge Diagnosis (1) Labral tear of right hip joint: Status: Acute (2) Trochanteric bursitis of both hips: Status: Acute
[2024-05-25] MEDS: Lactated Ringers 1,000 ML 30 ML IV (11:46)
--- NOTE | 2024-05-25 11:59 | W.ANESPRE ---
General Info Date of Service Date Performed: 05/25/24 Height: 5 ft 4 in Weight: 83.971 kg Body Mass Index (BMI): 31.7 Surgical Procedure: Operation Date: 05/25/24 12:20 Proposed Procedure Side Surgeon p Hip Arthroscopy w/Labral Debridement and Femoroplasty Right Trevor Dudley MD s Endoscopic Iliotibial Band Release w/Trochanteric Bursectomy Right Trevor Dudley MD Meds Allergies and Home Medications Allergies Allergy/AdvReac Type Severity Reaction Status Date / Time No Known Allergies Allergy Verified 05/25/24 11:24 Home Medication ?Medication ?Instructions ?Recorded multivitamin (Daily Multi-Vitamin 1 ea PO DAILY 02/09/13 tablet) acetaminophen 500 mg tablet (Mapap 1 tab PO PRN PRN 01/05/15 Extra Strength) fluticasone propionate 50 1 spray intranasal BID 03/23/21 mcg/actuation nasal spray,suspension loratadine 10 mg tablet (Claritin) 10 mg PO DAILY 03/23/21 albuterol sulfate 90 mcg/actuation 2 puff inhalation Q6H PRN 10/26/21 aerosol inhaler polyethylene glycol 3350 17 17 g PO DAILY 05/19/22 gram/dose oral powder (Miralax) bupropion HCl 100 mg tablet,12 hr 200 mg PO DAILY 04/21/23 sustained-release (Wellbutrin SR) esomeprazole magnesium 40 mg 40 mg PO DAILY 04/21/23 capsule,delayed release (Nexium) Bacillus coagulans 10 billion cell 10 cell PO DAILY 05/10/23 capsule,delayed release (Probiotic (B. coagulans)) vitamin B complex 1 tab PO DAILY 05/10/23 magnesium oxide 500 mg capsule 500 mg PO DAILY 06/01/23 prochlorperazine maleate 5 mg See Rx Instructions PO TID PRN 06/01/23 tablet headaches #30 tabs paroxetine HCl 10 mg tablet (Paxil) 10 mg PO DAILY 06/28/23 rimegepant 75 mg disintegrating 75 mg PO ONCE PRN migraine 10/06/23 tablet (Nurtec ODT) headache #16 tabs fremanezumab-vfrm 225 mg/1.5 mL 225 mg (1.5 mL) subcut QMONTH #1.5 02/08/24 subcutaneous auto-injector (Ajovy) mL Current Visit Medications: Current Medications Generic Name Dose Route Start Last Admin Trade Name Luis PRN Reason Stop Dose Admin Ringer's Solution 1,000 mls @ 30 mls/hr 05/25/24 06:00 05/25/24 11:46 IV 05/25/24 16:00 30 mls/hr INFUSION RAY Administration Cefazolin Sodium/Dextrose 2 gm in 50 mls @ 100 mls/hr 05/25/24 06:00 Ancef Duplex IVPB 05/25/24 16:00 PREOP RAY Tranexamic Acid/Sodium Chloride 1,000 mg in 100 mls @ 600 mls/hr 05/25/24 06:00 IVPB 05/25/24 16:00 PREOP RAY IV Miscellaneous Supplies 1 each 05/25/24 06:00 Iv Access IV 06/23/24 23:59 DIRECTED RAY Oxycodone HCl 0 mg 05/25/24 07:23 Oxycodone 5 Mg Tab PO 06/24/24 07:22 Q3H PRN PRN Pain Sodium Chloride 0 ml 05/25/24 06:00 Normal Saline Flush 10 Ml Syr IV 06/23/24 23:59 PRN PRN Sodium Chloride 0 ml 05/25/24 06:00 Normal Saline 10 Ml Vial IJ 06/23/24 23:59 DIRECTED PRN Sterile Water 0 ml 05/25/24 06:00 Water,Injection,Sterile 10 Ml Vial IJ 06/23/24 23:59 DIRECTED PRN PFSH Active Problems Active Problems: Problem Status Onset Code Labral tear of right hip joint Acute S73.191A Labral tear of left hip joint Acute S73.192A Chronic headache Acute R51.9, G89.29 Trochanteric bursitis of both hips Acute M70.61, M70.62 Right Achilles tendinitis Acute M76.61 Gastroesophageal reflux disease Active K21.9 Migraine headache without aura Acute G43.009 Medication overuse headache Acute G44.40 Benign fasciculations Acute R25.3 Femoral acetabular impingement Acute M25.859 Medical History Medical History Prolonged QT interval IBS (irritable bowel syndrome) Depression Asthma Gastroesophageal reflux disease Hyperlipidemia Surgical History Surgical History Repair ankle Dilation and curettage x3 Arthroplasty of knee Tobacco Smoking/Tobacco Use Status: Never Alcohol Alcohol Intake: current Alcohol intake frequency: a few times a month Substance Use Substance use: Never Substance use type: does not use Prental History History Para 2 Hx # Term Pregnancies Multiple births Hx # Pregnancies Ectopic pregnancies AB induced Hx Number of Living Children AB spontaneous Vital Signs and Lab Results Vital Signs Most Recent Vital Signs in EMR: Most Recent Vital Signs Temp Pulse Resp BP Pulse Ox 36.2 C L 67 16 126/92 H 98 05/25/24 11:27 05/25/24 11:27 05/25/24 11:27 05/25/24 11:27 05/25/24 11:27 Lab Results Blood Type / Crossmatch: No Data to Display Complete Blood Count: No Data to Display Complete Metabolic Panel: No Data to Display Liver Function Panel: No Data to Display Coagulation Panel: No Data to Display Cardiac Panel: No Data to Display Arterial Blood Gas: No Data to Display Venous Blood Gas: No Data to Display Pancreas Panel: No Data to Display Thyroid Panel: No Data to Display Infectious Disease: No Data to Display Blood Cultures: No Data to Display Toxicology Panel: No Data to Display Panel: No Data to Display Imaging and Studies Imaging and Studies Study information below may be from another EMR and interpreted by another provider. Please see original notes in EMR for more complete details. EKG Summary: 01/20/21: Exam: Resting ECG Patient Location: E HR:72 bpm ECG Measurements Heart Rate 72 AXIS RI 171 P 58 QRSd 98 QRS -24 QT 400 T38 QTc 439 Conclusion Sinus rhythm...normal P axis, V-rate 60- 99 I have reviewed and I agree with the emergency room physician???s ECG interpretation. Anesthesia Assessment and Plan Anesthesia History Personal History: No History of Anesthesia Complications Family History: No Family History of Anesthesia Complications Exercise Tolerance Exercise Tolerance: Metabolic Equivalents>4 Pertinent Negatives Pertinent Negatives: No Symptoms of GERD, No Major Cardiovascular Symptoms or Complaints and No Major Pulmonary Symptoms or Complaints Cardiac & Pulmonary Exam Cardiac Exam: Normal S1/S2 Heart Sounds Pulmonary Exam: Clear Bilateral Breath Sounds Implantable Cardiac Device Does patient have a Pacemaker or an ICD?: No Airway Exam Known Difficult Airway: No Mallampati Class: 2 Mouth Opening: Normal (> 3cm) Thyromental Distance: Greater than 3 cm Neck Range of Motion: Full ROM Neck Circumference: Normal Teeth Condition: Normal Dentition ASA Classification ASA Score: ASA 2 Emergency Case?: No NPO Status NPO Status: NPO Clears >2 hours, Solids >8 hours Status Status: Pt. refuses testing, she was counseled on anesthesia risks (Consent signed) Anesthesia Plan Resuscitation Status: Full Code Anesthesia Technique: General Anesthesia Airway Planned: Endotracheal Tube Pain Management: Surgeon and patient request nerve block Monitors Used: Standard Monitors and SedLine
[2024-05-25] MEDS: ceFAZolin 2 GM/50 ML BAG IVPB (13:35)
[2024-05-25] MEDS: TRANEXAMIC ACID/SOD. CHL. 1,000 MG/100 ML BAG 600 MG IVPB (13:41)
--- NOTE | 2024-05-25 13:51 | PAPNONF_PTH ---
PATIENT: Cata Griggs LOC: [facility] U#:[id number] AGE/SX: 49/F ROOM: RE05/25/[address]: Trevor Dudley MD : 1975 BED: DIS: 05/25/2024 SPEC #: [id number] RECD: 05/28/24 13:12 STATUS: PORFIRIO REQ #: [id number] BELEN: 05/25/24 13:[address]: Trevor Dudley DEPT: [facility] Cytology RECD BY: Kathryn Jennings ENTERED: 05/28/24 13:12 SP TYPE: SAMIRA BLUE DR: Rachel Murray Tissues: 1 - BODY FLUID CYTO(NOT S/U/N/EM)[facility] Procedures: GROSS AND MICRO LEVEL 4 Comments: [id number] (SENT FRESH) (REFRIGERATED) ([facility] PROCESSED A SURGICAL SPECIMEN)
--- NOTE | 2024-05-25 14:12 | ANES.NERVE_ITS ---
Nerve Block Single Injection Procedure Date and Time Date Performed: 05/25/24 Procedure Start: 13:15 Location Where Procedure Performed Procedure Location: Operating Room Procedure Stop: 13:27 Reason Performed: Postoperative Analgesia Requesting Provider: Trevor Dudley Timeout Performed Timeout Performed: Yes Monitoring Used ECG, Blood Pressure, SpO2 and See EMR for corresponding vital signs Sterility Sterility: Hand Hygiene, Surgical Cap, Surgical Mask, Sterile Gloves and Chl orhexidine Sedation Given During Procedure Sedation Given (Indicate Dose Given): No Sedation given Patient Mental Status Patient Mental Status: Performed under general anesthesia Nerve Block 1st Nerve Block: Laterality: Right Block Type: LEE Ultrasound Image Saved?: Yes Needle / Catheter Used: 100mm SonoPlex II Local Anesthetic Bolus (Indicate Dose Given): Lidocaine used for local infiltration of skin, Injected in 3-5ml increments after negative blood aspiration, Bupivacaine 0.25% Dose:: 7.5 ml and Bupivacaine 0.5% Dose:: 7.5ml Additives (Indicate Dose Given): None Ultrasound: Sterile probe cover and gel used Nerve Stimulator: Not Used Paresthesia: None Procedure Tolerated: No Complications and Patient tolerated well Procedure Outcome: Successful Procedure Comment: Challenging anatomy/view given tendon proximity to bone. Performed By: Jamarcus Foreman
[2024-05-25] MEDS: Bupivacaine 0.25% Pres-Free W/EPI 30 ML VIAL (14:18)
[2024-05-25] MEDS: EPINEPHrine 10 MG/10 ML ML (15:18)
--- NOTE | 2024-05-25 15:25 | DI.RAD_ITS ---
Exam(s) XR HIP RT IN OR EXAM: XR HIP RT IN OR CLINICAL HISTORY: Labral tear of right hip joint. TECHNIQUE: Fluoroscopy was provided for the referring physician for guidance with performing right h ip injection procedure. COMPARISON: MR MR LOWER JOINT BI WO from 12/01/2023 FINDINGS: Please see procedure note for details. Fluoro time: 1 minutes 21 seconds seconds RADIATION DOSE DELIVERED: Ka,r=9.62 mGy
[2024-05-25] MEDS: ACETAMINOPHEN 1,000 MG/100 ML BTL 400 MG IVPB (16:01)
[2024-05-25] MEDS: fentaNYL 100 MCG/2 ML VIAL IVP (16:07)
[2024-05-25] MEDS: oxyCODONE 5 MG TAB PO (16:57)
--- NOTE | 2024-05-25 17:06 | W.ANESPOSTOP ---
Postoperative Evaluation Date, Time and Location Date Performed: 05/25/24 Time Performed: 17:06 Patient Location: Day Surgery Unit Vital Signs Most Recent Imported Vital Signs: Most Recent Vital Signs Temp Pulse Resp BP Pulse Ox 35.9 C L 63 16 123/69 97 05/25/24 16:36 05/25/24 16:36 05/25/24 16:36 05/25/24 16:36 05/25/24 16:36 Pain Score Most Recent Pain Score: Most Recent Pain Score Pain Level 7 05/25/24 16:36 Assessment Mental Status: Awake (Alert & Oriented to Patient Baseline) Airway and Respiratory Function: Patent airway with normal (patient baseline) respiratory exam Cardiovascular Function: Hemodynamically Stable Hydration Status: Adequately Hydrated Nausea & Vomiting: No Nausea or Vomiting Pain: Pain is tolerable per patient (04/25, given rx) Peripheral Nerve Block: Regional nerve block not resolved at time of post operative discharge Postoperative Comments:: Will encourage ambulation prior to discharge.
== END 2024-05-25 17:53 | disposition home or self-care (01) ==
LOC: SUR 10:49
PROVIDERS: PCP Nurse Practitioner Family; Visit Provider Student in an Organized Health Care Education/Training Program
PROC: (CPT 29860; principal; 2024-05-25 12:00)
PROC: (CPT 29863; 2024-05-25 12:00)
DX: S73.191A Other sprain of right hip, initial encounter (principal); S73.192A Other sprain of left hip, initial encounter; M70.61 Trochanteric bursitis, right hip; M70.62 Trochanteric bursitis, left hip; X58.XXXA Exposure to other specified factors, initial encounter
CPT/HCPCS: 29862; 27305; 27062; 76942; 81025; 88305; 73501; 88104; J0131; J0665; J0690; J1100; J1805; J1885; J1920; J2001; J2250; J2405; J2704; J3010

== ENCOUNTER 2024-07-25 09:30 | Day surgery (SDC) | payer BC, SELFPAY ==
--- NOTE | 2024-07-24 16:14 | W.PM.DSUDISC ---
Date of service: 07/25/24 Time of Service: 12:19 Discharge Plan Disposition Patient Disposition: Home Condition: Good Discharge Details Reason For Visit: Diagnostic EGD Attending Provider: Chuck Drake Primary Care Provider: Rachel Murray Home Meds and New Rx's Prescriptions: Continued fluticasone propionate 50 mcg/actuation spray,suspension 1 spray intranasal BID Rx Instructions: administer into each nostril polyethylene glycol 3350 [Miralax] 17 gram/dose powder 17 g PO DAILY Ajovy Autoinjector 225 mg/1.5 mL auto-injector 225 mg subcut QMONTH Qty: 1.5 11RF Nurtec ODT 75 mg tablet,disintegrating 75 mg PO ONCE PRN (Reason: migraine headache) Qty: 16 5RF Rx Instructions: as a single dose; no more than 1 tab per day; do not take more often than every 24 hours naproxen sodium [Aleve] 220 mg capsule 220 mg PO BID PRN famotidine 20 mg tablet 20 mg PO BID calcium carbonate [Tums] 200 mg calcium (500 mg) tablet,chewable 200 mg PO BID PRN Zyrtec 10 mg capsule 10 mg PO DAILY albuterol sulfate 90 mcg/actuation HFA aerosol inhaler 2 puff inhalation Q6H PRN magnesium oxide 500 mg capsule 500 mg PO DAILY prochlorperazine maleate 5 mg tablet See Rx Instructions PO TID PRN (Reason: headaches ) Qty: 30 3RF Rx Instructions: 5-10 mg PO three times a day PRN; vitamin B complex Tablet 1 tab PO DAILY Probiotic (B. coagulans) 10 billion cell capsule,delayed release(DR/EC) 10 cell PO DAILY paroxetine HCl [Paxil] 10 mg tablet 10 mg PO DAILY bupropion HCl [Wellbutrin SR] 100 mg tablet sustained-release 12 hr 200 mg PO DAILY esomeprazole magnesium [Nexium] 40 mg capsule,delayed release(DR/EC) 40 mg PO DAILY atorvastatin 10 mg tablet 10 mg PO DAILY gabapentin 300 mg capsule 300 mg PO TID acetylcysteine [NAC] 600 mg capsule 600 mg PO DAILY Patient Comments: pt. not familiar with this and not taking multivitamin [Daily Multi-Vitamin] 1 EACH tablet 1 ea PO DAILY acetaminophen [Mapap Extra Strength] 500 MG tablet 1 tab PO PRN PRN triamcinolone acetonide 0.1 % ointment TOPICAL Discharge Instructions Additional Instructions: Cata, we were able to complete your EGD today without any difficulty. I hope you are comfortable during this procedure. Your upper, mid, and lower esophagus all look pretty normal. There is some suggestion of a hiatal hernia, but to be honest, it seems to be quite small. It could certainly still account for your symptoms, but compared to some other hernias that I see, I would estimate this to be the lowest grade hiatal hernia at grade 1. The inside portion of your stomach proper is totally normal. I do not see any active signs of inflammation or irritation. I advanced the camera down into the first part of your small intestine, which also appeared normal. I did do some biopsies of the duodenum as well as multiple portions of the stomach as there are some conditions that may not be apparent to the naked eye that could fit with some of your symptoms. This biopsies will take about a week or 2 to result, but once I have them, I will be in touch with any other recommendations. In the meantime, it would be reasonable to continue with the esomeprazole. I will leave it up to you if you want to continue the famotidine as well. If you notice a significant difference with both of those medications combined, then it is reasonable to take both, but based on what I see today, I am skeptical that there is benefit to using both of them. As I mentioned above, the office will be in touch once we have the results of the biopsies, but obviously if you have any questions before that, please do not hesitate to ask. 1. If tolerated, consume a soft, low fiber diet for 1-2 days. [address] not drive, drink alcohol, operate machinery, make critical decisions, or do activities that require coordination or balance for 24 hours. 3. You may experience a sore throat for 24 to 48 hours. You may use throat lozenges or gargle with warm salt water to relieve the discomfort. 4. Because air was put into your stomach during the procedure, you may experience some belching. 5. Go directly to the emergency room if you notice any of the following: Develop chills (warm to touch), or if you have a thermometer and your temperature is above 101 Difficulty breathing or difficultly swallowing Persistent vomiting Severe abdominal pain, other than gas cramps Severe chest pain Black, tarry stools Any bleeding ? exceeding one tablespoon 6. Call your physician if the site where your intravenous was started becomes red, swollen, painful, and warm to touch. 7. Your physician has reviewed your pre-procedure medications. Please continue to take those medications as previously ordered. You will be given specific information/education regarding any changes to your medications before leaving.n Stand Alone Forms: Anesthesia Discharge Inst., Padma Torres ([facility]) Activity:: Activity as Tolerated Diet:: As Tolerated Discharge Orders Discharge Orders: Discharge Order (Routine); Ordered 07/24/24 Ordered By: Chuck Drake DS: Diagnosis Discharge Diagnosis (1) Dyspepsia: Status: Acute
--- NOTE | 2024-07-24 16:28 | W.PM.ENDDOP ---
Date of service: 07/25/24 Time of Service: 12:22 Endoscopy Report DATE OF PROCEDURE: 07/25/24 PRE-OP DIAGNOSIS: Dyspepsia POST-OP DIAGNOSIS: other (Grade 1 hiatal hernia) PROCEDURE: EGD with biopsies SURGEON: Chuck Drake ANESTHESIA TYPE: General:No Airway ESTIMATED BLOOD LOSS: 10 PATHOLOGY: other (Random cold forceps biopsies of the duodenum, gastric antrum, gastric body) COMPLICATIONS: None DISPOSITION: same day INDICATIONS: Cata is a 49-year-old woman with longstanding gastroesophageal reflux disease and dyspepsia. PROCEDURE START TIME: 11:42 PROCEDURE END TIME: 11:49 FINDINGS: Normal-appearing esophagus, grade 1 hiatal hernia, normal-appearing stomach and duodenum PROCEDURE DESCRIPTION: After the initiation of anesthesia, and with the assistance of a bite block, I advanced a standard gastroscope through the mouth past the hypopharynx and into the esophagus.? Under the direct vision of the scope, I advanced down the esophagus towards the stomach.? The upper, mid, and lower esophagus were all normal-appearing. There is no strictures or diverticula. Mucosa is normal and healthy appearing. The GE junction and Z-line at 36 cm from the incisors. Narrowband imaging worries used to complement the exam here. I do not see any clinical features of [place]'s esophagus. I am able to advance into the stomach proper without any difficulty. I insufflated the stomach into the rugae were obliterated. Retroflexion was a little bit difficult to visualize, but there did seem to be evidence of a grade 1 hiatal hernia. Certainly, there is no ulceration or inflammation around the upper portion of the stomach. The main portion of the gastric body was all normal and healthy appearing, as was the gastric antrum and pylorus. I advanced through the pylorus with ease into the duodenum. There are some bile staining here, and all of the mucosa looks totally appropriate. I did do some cold forceps biopsies to rule out any pathology here. There was minimal bleeding. I brought the camera back up into the stomach and perform some random biopsies of the gastric antrum and body as well to rule out Helicobacter pylori. There was minimal bleeding from all of the biopsy sites. I then emptied the stomach, brought the camera out along the length of the esophagus 1 more time. Again, no pathology was appreciated.
[2024-07-25 10:11] VITALS: BP 126/86; PULSE 84; RESP 16; TEMP 36.6; O2SAT 96
[2024-07-25] MEDS: Lactated Ringers 1,000 ML 80 ML IV (10:20)
--- NOTE | 2024-07-25 10:35 | W.ANESPRE ---
General Info Date of Service Date Performed: 07/25/24 Height: 5 ft 4 in Weight: 87.5 kg Body Mass Index (BMI): 33.0 Surgical Procedure: Operation Date: 07/25/24 10:35 Proposed Procedure Side Surgeon p Gastroscopy Chuck Drake MD Actual Procedure Side Surgeon p Gastroscopy Chuck Drake MD Pre-Op Diagnosis Post-Op Diagnosis Dyspepsia Meds Allergies and Home Medications Allergies Allergy/AdvReac Type Severity Reaction Status Date / Time No Known Allergies Allergy Verified 07/25/24 09:59 Home Medication ?Medication ?Instructions ?Recorded multivitamin (Daily Multi-Vitamin 1 ea PO DAILY 02/09/13 tablet) acetaminophen 500 mg tablet (Mapap 1 tab PO PRN PRN 01/05/15 Extra Strength) fluticasone propionate 50 1 spray intranasal BID 03/23/21 mcg/actuation nasal spray,suspension albuterol sulfate 90 mcg/actuation 2 puff inhalation Q6H PRN 10/26/21 aerosol inhaler polyethylene glycol 3350 17 17 g PO DAILY 05/19/22 gram/dose oral powder (Miralax) bupropion HCl 100 mg tablet,12 hr 200 mg PO DAILY 04/21/23 sustained-release (Wellbutrin SR) esomeprazole magnesium 40 mg 40 mg PO DAILY 04/21/23 capsule,delayed release (Nexium) Bacillus coagulans 10 billion cell 10 cell PO DAILY 05/10/23 capsule,delayed release (Probiotic (B. coagulans)) vitamin B complex 1 tab PO DAILY 05/10/23 magnesium oxide 500 mg capsule 500 mg PO DAILY 06/01/23 prochlorperazine maleate 5 mg See Rx Instructions PO TID PRN 06/01/23 tablet headaches #30 tabs paroxetine HCl 10 mg tablet (Paxil) 10 mg PO DAILY 06/28/23 rimegepant 75 mg disintegrating 75 mg PO ONCE PRN migraine 10/06/23 tablet (Nurtec ODT) headache #16 tabs fremanezumab-vfrm 225 mg/1.5 mL 225 mg (1.5 mL) subcut QMONTH #1.5 02/08/24 subcutaneous auto-injector (Ajovy) mL acetylcysteine 600 mg capsule (NAC) 600 mg PO DAILY 06/05/24 atorvastatin 10 mg tablet 10 mg PO DAILY 06/05/24 gabapentin 300 mg capsule 300 mg PO TID 06/05/24 calcium carbonate (Tums) 200 mg PO BID PRN 06/26/24 famotidine 20 mg tablet 20 mg PO BID 06/26/24 naproxen sodium 220 mg capsule 220 mg PO BID PRN 06/26/24 (Aleve) cetirizine 10 mg capsule (Zyrtec) 10 mg PO DAILY 07/25/24 triamcinolone acetonide 0.1 % applic topical 07/25/24 topical ointment Current Visit Medications: Current Medications Generic Name Dose Route Start Last Admin Trade Name Freq PRN Reason Stop Dose Admin Ringer's Solution 1,000 mls @ 80 mls/hr 07/25/24 06:00 07/25/24 10:20 IV 07/25/24 23:59 80 mls/hr INFUSION RAY Administration IV Miscellaneous Supplies 1 each 07/25/24 06:00 Iv Access IV 07/25/24 23:59 DIRECTED RAY Ondansetron HCl 4 mg 07/24/24 16:30 Ondansetron 4 Mg/2 Ml Vial IVP 08/23/24 16:29 Q4H PRN PRN Nausea / Vomiting Sodium Chloride 0 ml 07/25/24 06:00 Normal Saline Flush 10 Ml Syr IV 07/25/24 23:59 PRN PRN Sodium Chloride 0 ml 07/25/24 06:00 Normal Saline 10 Ml Vial IJ 07/25/24 23:59 DIRECTED PRN Sterile Water 0 ml 07/25/24 06:00 Water,Injection,Sterile 10 Ml Vial IJ 07/25/24 23:59 DIRECTED PRN PFSH Active Problems Active Problems: Problem Status Onset Code 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 CT scan of abdomen and pelvis with contrast. Check cbcd, cmp, tsh/r. (per referral) Hiatal hernia Prolonged QT interval IBS (irritable bowel syndrome) Depression Asthma Gastroesophageal reflux disease Hyperlipidemia Surgical History Surgical History History of arthroscopy of hip History of colonoscopy 11/24/2015 (normal) History of esophagogastroduodenoscopy (EGD) Last egd 2015 Repair ankle Dilation and curettage x3 Arthroplasty of knee pt. reports knee was scope with plica removal Tobacco Smoking/Tobacco Use Status: Never Alcohol Alcohol Intake: current Alcohol intake frequency: a few times a month Alcohol type: wine and hard liquor Substance Use Substance use: Never Substance use type: does not use Details: alcohol: t-4: one drink Prental History History Para 2 Hx # Term Pregnancies Multiple births Hx # Pregnancies Ectopic pregnancies AB induced Hx Number of Living Children AB spontaneous Vital Signs and Lab Results Vital Signs Most Recent Vital Signs in EMR: Most Recent Vital Signs Temp Pulse Resp BP Pulse Ox 36.6 C 84 16 126/86 96 07/25/24 10:11 07/25/24 10:11 07/25/24 10:11 07/25/24 10:11 07/25/24 10:11 Lab Results Blood Type / Crossmatch: No Data to Display Complete Blood Count: No Data to Display Complete Metabolic Panel: No Data to Display Liver Function Panel: No Data to Display Coagulation Panel: No Data to Display Cardiac Panel: No Data to Display Arterial Blood Gas: No Data to Display Venous Blood Gas: No Data to Display Pancreas Panel: No Data to Display Thyroid Panel: No Data to Display Infectious Disease: No Data to Display Blood Cultures: No Data to Display Toxicology Panel: No Data to Display Panel: No Data to Display Imaging and Studies Imaging and Studies Study information below may be from another EMR and interpreted by another provider. Please see original notes in EMR for more complete details. EKG Summary: 01/20/21: Exam: Resting ECG Patient Location: E HR:72 bpm ECG Measurements Heart Rate 72 AXIS ID 171 P 58 QRSd 98 QRS -24 QT 400 T38 QTc 439 Conclusion Sinus rhythm...normal P axis, V-rate 60- 99 I have reviewed and I agree with the emergency room physician???s ECG interpretation. Anesthesia Assessment and Plan Anesthesia History Personal History: No History of Anesthesia Complications Family History: No Family History of Anesthesia Complications Exercise Tolerance Exercise Tolerance: Metabolic Equivalents>4 Pertinent Negatives Pertinent Negatives: No Symptoms of GERD Cardiac & Pulmonary Exam Cardiac Exam: Normal S1/S2 Heart Sounds Pulmonary Exam: Clear Bilateral Breath Sounds Implantable Cardiac Device Does patient have a Pacemaker or an ICD?: No Airway Exam Known Difficult Airway: No Mallampati Class: 2 Mouth Opening: Normal (> 3cm) Thyromental Distance: Greater than 3 cm Neck Range of Motion: Full ROM Neck Circumference: Normal Teeth Condition: Normal Dentition ASA Classification ASA Score: ASA 2 Emergency Case?: No NPO Status NPO Status: NPO Clears >2 hours, Solids >8 hours Status Status: Pt. refuses testing, she was counseled on anesthesia risks Anesthesia Plan Resuscitation Status: Full Code Anesthesia Technique: General Anesthesia Airway Planned: Natural Airway Monitors Used: Standard Monitors
[2024-07-25 10:36] VITALS: BMI 33.0
--- NOTE | 2024-07-25 11:45 | STOM_PTH ---
PATIENT: Cata Griggs LOC: [facility] U#:[id number] AGE/SX: 49/F ROOM: RE07/25/[address]: Chuck Drake MD : 1975 BED: DIS: 07/25/2024 SPEC #: [id number] RECD: 07/25/24 17:34 STATUS: PORFIRIO RE #: [id number] BELEN: 07/25/24 11:[address]: Chuck Drake DEPT: Surgical Specimen RECD BY: Kathryn Jennings ENTERED: 07/25/24 17:35 SP TYPE: STOMACH OTHR DR: Rachel Murray Tissues: 1 - BIOPSY BOWEL 2 - STOMACH BIOPSY 3 - STOMACH BIOPSY Procedures: GROSS AND MICRO LEVEL 4 Comments: [id number]
--- NOTE | 2024-07-25 11:59 | W.ANESPOSTOP ---
Postoperative Evaluation Date, Time and Location Date Performed: 07/25/24 Time Performed: 11:59 Patient Location: Day Surgery Unit Vital Signs Most Recent Imported Vital Signs: Most Recent Vital Signs Temp Pulse Resp BP Pulse Ox 36.6 C 84 16 126/86 96 07/25/24 10:11 07/25/24 10:11 07/25/24 10:11 07/25/24 10:11 07/25/24 10:11 Pain Score Most Recent Pain Score: Most Recent Pain Score Pain Level 0 07/25/24 10:11 Assessment Mental Status: Awake (Alert & Oriented to Patient Baseline) Airway and Respiratory Function: Patent airway with normal (patient baseline) respiratory exam Cardiovascular Function: Hemodynamically Stable Hydration Status: Adequately Hydrated Nausea & Vomiting: No Nausea or Vomiting Pain: Pt. Denies Any Pain Peripheral Nerve Block: Patient did not receive a nerve block
[2024-07-25 12:04] VITALS: BP 132/84; PULSE 8; RESP 20; TEMP 36.4; O2SAT 93
[2024-07-25 12:22] VITALS: BP 126/79; PULSE 82; RESP 18; TEMP 36.5; O2SAT 96
== END 2024-07-25 13:00 | disposition home or self-care (01) ==
LOC: SUR 09:31
PROVIDERS: PCP Nurse Practitioner Family; Visit Provider Surgery
PROC: 0DJ68ZZ Inspection of Stomach, Via Natural or Artificial Opening Endoscopic (ICD-10-PCS; CPT 43235; principal; 2024-07-25 10:30)
DX: R10.13 Epigastric pain (principal); K44.9 Diaphragmatic hernia without obstruction or gangrene; K31.9 Disease of stomach and duodenum, unspecified
CPT/HCPCS: 43239; 88305; J2003; J2704

== ENCOUNTER 2024-07-25 14:28 | Outpatient (CLI) | payer BC, SELFPAY ==
--- NOTE | 2024-07-25 08:58 | DI.RAD_ITS ---
Exam(s) XR HIP RT AP LAT ONLY EXAM: XR HIP RT AP LAT ONLY CLINICAL HISTORY: hip pain. TECHNIQUE: 2D digital imaging was performed. COMPARISON: CR XR HIP PELVIS ADULT BL from 05/10/2023 FINDINGS: Two views No evidence of right hip fracture or dislocation or joint space narrowing. Bone density is normal. No osseous lesions. Additional lateral view does not reveal evidence of osteophytes. No degenerativ e subarticular cysts evident. No evidence of avascular necrosis. No evidence of hip dysplasia. Bone density is normal. No significant osseous lesions. IMPRESSION: No significant radiographic findings on these two views of the right hip. No significant change comp ared to April 2023. DATA REPOSITORY: RADIATION DOSE DELIVERED:
== END 2024-07-25 14:29 | disposition home or self-care (01) ==
LOC: DIORS 14:29
PROVIDERS: PCP Nurse Practitioner Family; Visit Provider Physician Assistant
DX: S73.191D Other sprain of right hip, subsequent encounter (principal); X58.XXXD Exposure to other specified factors, subsequent encounter
CPT/HCPCS: 73502

== ENCOUNTER 2024-09-24 02:51 | Outpatient (CLI) | payer BC, SELFPAY ==
[2024-09-24 14:38] LABS: Abs Immature Grans 0.01 10^3/uL (0.0-0.06); Absolute Basophil Count 0.04 10^3/uL (0.0-0.2); Absolute Eosinophil Count 0.15 10^3/uL (0.0-0.7); Absolute Lymphocyte Count 1.58 10^3/uL (1.2-3.4); Absolute Monocyte Count 0.82 10^3/uL (0.1-0.8); Absolute Neutrophil Count 5.26 10^3/uL (1.2-6.7); Basophils % 0.5 %; Eosinophils % 1.9 %; HCT 41.1 % (36.0-46.0); Immature Grans % 0.1 %; Lymphocytes % 20.1 %; MCH 30.5 pg (27.0-33.0); MCHC 34.1 % (32.0-36.0); MCV 90 fL (80-95); MPV 10.3 fL (8.0-11.0); Monocytes % 10.4 %; Platelet Count 292 10^3/uL (130-400); RBC 4.59 10^6/uL (3.93-5.22); RDW 13.1 % (11.7-14.6); RDW-SD 42.9 fL; WBC 7.86 10^3/uL (4.4-10.8)
[2024-09-24 14:44] LABS: ESR 19 mm/hr (0-20)
[2024-09-24 15:56] LABS: C-Reactive Protein 0.71 mg/dL (<or=0.5)
== END 2024-09-24 02:52 | disposition home or self-care (01) ==
LOC: LBO 02:51
PROVIDERS: PCP Nurse Practitioner Family; Visit Provider Student in an Organized Health Care Education/Training Program
DX: D48.0 Neoplasm of uncertain behavior of bone and articular cartilage (principal)
CPT/HCPCS: 36415; 85652; 85025; 86140

== ENCOUNTER 2024-09-25 01:15 | Outpatient (CLI) | payer BC, SELFPAY ==
--- NOTE | 2024-09-25 11:35 | DI.MRI_ITS ---
Exam(s) MR LOWER JOINT RT WO EXAM: MR LOWER JOINT RT WO CLINICAL HISTORY: ? GLUTEAL TEAR,chondromatosis of synovium of hip joint,d48.0 TECHNIQUE: Multiplanar multisequence MRI of the hip was performed. COMPARISON: MR MR LOWER JOINT BI WO from 12/01/2023 XA XR HIP RT IN OR from 05/25/2024 CR XR HIP RT AP LAT ONLY from 07/25/2024 FINDINGS: There has been interval instrumentation of the right hip/labrum on 05/25/2024. MARROW:There is no evidence of fracture, bone contusion, nor avascular necrosis. There are no signif icant osseous lesions.There is no significant osseous excrescence at the femoral head-neck junction t o suggest the presence of cam-type LEONARDO. EFFUSION: There is no evidence of significant size joint effusion. HIP JOINT SPACE: No obvious chondral defects.There is no hypertrophy of the ligamentum teres nor sign al abnormality at the fovea centralis. LABRUM: There is no evidence of obvious labral tear nor evidence of paralabral cyst. TENDONS: There is significant signal abnormality in the soft tissues lateral to the greater trochante r, more so than previous, consistent with partial tearing of the gluteus medius tendon at this level. There is no abnormal intraosseous signal is within the greater trochanter itself. ISCHIAL TUBEROSITY/HAMSTRING: There is no abnormal intraosseous signal in the ipsilateral ischial tub erosity nor tear of the common hamstrings tendon attachment site at this level. OTHER: There is no abnormal intramuscular signal within the quadratus femoris to suggest the presence of impingement syndrome at this level. Incidentally noted is a cyst in the left adnexa-left ovarian cyst measuring 1.0 x 0.9 cm. No free fl uid evident in the pelvis. IMPRESSION: 1. There is signal abnormality in the soft tissues lateral to the greater trochanter of the right hip in the region of the gluteus medius tendon consistent with partial tearing of this structure. There is no abnormal intraosseous signal within the greater trochanter itself. 2. The appearance of the labrum is similar to the prior study of 12/01/2023. Slight irregularity of the superior labrum noted but without interposition of fluid signal between the labrum and bony aceta bulum evident. 3. No evidence of prominent hip joint effusion, loose intra-articular bodies, stress fracture, nor av ascular necrosis. DATA REPOSITORY:
== END 2024-09-25 01:35 ==
LOC: DI 01:16
PROVIDERS: PCP Nurse Practitioner Family; Visit Provider Student in an Organized Health Care Education/Training Program
DX: S76.011A Strain of muscle, fascia and tendon of right hip, initial encounter (principal); X58.XXXA Exposure to other specified factors, initial encounter
CPT/HCPCS: 73721

== ENCOUNTER 2024-10-04 02:54 | Outpatient (CLI) | payer BC, SELFPAY ==
[2024-10-04 07:40] LABS: HGB 14.2 g/dL (11.2-15.7); MCH 30.7 pg (27.0-33.0); MCHC 33.8 % (32.0-36.0); MCV 91 fL (80-95); MPV 9.6 fL (8.0-11.0); Platelet Count 300 10^3/uL (130-400); RBC 4.62 10^6/uL (3.93-5.22); RDW 13.2 % (11.7-14.6); RDW-SD 43.9 fL
[2024-10-04 08:36] LABS: ALT 84 U/L (14-59); AST 45 U/L (15-37); Albumin 3.5 g/dL (3.4-5.0); Alkaline Phosphatase 73 U/L (46-116); BUN 22 mg/dL (7-18); Bilirubin, Total 0.35 mg/dL (0.2-1.0); CREATININE 0.8 mg/dL (0.55-1.02); Calcium 8.8 mg/dL (8.5-10.1); Calculated LDL 79 mg/dL (<100); Chloride 105 mmol/L (98-107); Cholesterol 162 mg/dL (<200); Estimated GFR 89.71 (mL/min/1.73m2); Glucose 107 mg/dL (74-106); HDL Cholesterol 58 mg/dL (40-60); Potassium 4.3 mmol/L (3.5-5.1); Sodium 142 mmol/L (136-145); Triglyceride 128 mg/dL (<150)
== END 2024-10-04 02:55 | disposition home or self-care (01) ==
LOC: LBO 02:54
PROVIDERS: Student in an Organized Health Care Education/Training Program; PCP Nurse Practitioner Family; Visit Provider Nurse Practitioner Family
DX: M16.11 Unilateral primary osteoarthritis, right hip (principal); Z01.818 Encounter for other preprocedural examination; E78.5 Hyperlipidemia, unspecified; M76.61 Achilles tendinitis, right leg
CPT/HCPCS: 36415; 80053; 80061; 85027

== ENCOUNTER 2024-11-29 10:55 | Outpatient (CLI) | payer BC, SELFPAY ==
[2024-11-29 08:11] LABS: ALT 47 U/L (14-59); AST 29 U/L (15-37); Albumin 3.5 g/dL (3.4-5.0); Alkaline Phosphatase 85 U/L (46-116); Anion Gap 7.3 mmol/L (3-11); BUN 14 mg/dL (7-18); Bilirubin, Total 0.36 mg/dL (0.2-1.0); CO2 26.7 mmol/L (21.0-32.0); CREATININE 0.9 mg/dL (0.55-1.02); Calcium 9.3 mg/dL (8.5-10.1); Chloride 106 mmol/L (98-107); Estimated GFR 77.88 (mL/min/1.73m2); Glucose 103 mg/dL (74-106); Sodium 140 mmol/L (136-145); Total Protein 7.5 g/dL (6.4-8.2)
--- OUTSIDE RECORDS SUMMARY | 2024-11-29 10:57 | XMS_ITS | Encounter Summary ---
Author Organization [facility] Address [address] [place] [address] Care Team Providers Care Skull Splitter Name Role Phone Rachel Murray APRN Primary Care Provider [phone] Encounter Details Date Type Department Care Team (Latest Contact Info) Description 02/12/2020 Travel Social History Tobacco Use Types Packs/Day Years Used Date Smoking Tobacco: Never Smokeless Tobacco: Never Alcohol Use Standard Drinks/Week Comments No 0 (1 standard drink = 0.6 oz pur e alcohol) Comments Unknown Sex and Gender Information Value Date Recorded Sex Assigned at Not on file Legal Sex Female 21:34 EDT Gender Identity Not on file Sexual Orientation Not on file COVID-19 Exposure Response Date Recorded In the last month, have you been in contact with someone who was confirmed or suspected to have Coronavirus / COVID-19? No / Unsure 02/12/2020 14:17 EDT documented as of this encounter Plan of Treatment Not on file documented as of this encounter Visit Diagnoses Not on filedocumented in this encounter Care Teams Skull Splitter Relationship Specialty Start Date End Date Rachel Murray APRN [address] [place] [id number] PCP - General 09/10/15 documented as of this encounter
--- OUTSIDE RECORDS SUMMARY | 2024-11-29 10:57 | XMS_ITS | Encounter Summary ---
Author Organization [facility] Address [address] [place] [address] Care Team Providers Care Vp Care Management Name Role Phone Rachel Murray AYO Primary Care Provider [phone] [phone] Encounter Details Date Type Department Care Team (Late st Contact Info) Description 06/10/[address] [facility] Pathology & Laboratory Medicine - [facility] [address], [place] [address] Outr Resulting Lab, Provider Social History Tobacco Use Types Packs/Day Years Used Date Smoking Tobacco: Never Smokeless Tobacco: Never Alcohol Use Standard Drinks/Week Comments No 0 (1 standard drink = 0.6 oz pur e alcohol) Interpersonal Safety Answer Date Record ed Physically Hurt Never 05/18/2020 Verbally Threaten Not on file 05/18/2020 Comments Unknown Sex and Gender Information Value Date Recorded Sex Assigned at Not on file Legal Sex Female 21:34 EDT Gender Identity Not on file Sexual Orientation Not on file documented as of this encounter Plan of Treatment Not on file documented as of this encounter Procedures Procedure Name Priority Date/Time Associated Diagnosis Comments CA 125 Today 06/09/2023 15:30 EDT HOLD SST Today 06/09/2023 15:30 EDT LYME AB Today 06/09/2023 15:30 EDT RHEUMATOID FACTOR Today 06/09/2023 15: 30 EDT ANTI NUCLEAR AB (ELAINE), IFA Today 06/09/2023 15:30 EDT documented in this encounter Results * HOLD SST (06/09/2023 15:30 EDT) Hold Hold 06/10/2023 18:46 EDT [facility] Blood VENOUS BLOOD / Unknown 06/09/2023 15:30 EDT 06/10/2023 17:45 EDT us Provider Outr Resulting Lab LAB INFO SERVICE AND SUPPORT & PHONE RESULT Final Result Performing Organization Address [facility]/ZIP Co de Phone Number [facility] [address] [place] [address] * LYME AB (06/09/2023 15:30 EDT) Pathologist [facility] Lyme Ab Negative Negative 06/13/2023 9:56 EDT [facility] Blood VENOUS BLOOD / Unknown 06/09/2023 15:30 EDT 06/10/2023 17:44 EDT us Provider Outr Resulting Lab IMMUNOLOGY AND SEROL OGY ORDERABLES Final Result Performing Organization Address City/[facility]/ZIP Co de Phone Number [facility] [address] [place] [address] * RHEUMATOID FACTOR (06/09/2023 15:30 EDT) Pathologist [facility] Rheumatoid Factor <8.6 <12.0 IU/mL 06/10/2023 18:36 EDT [facility] Blood VENOUS BLOOD / Unknown 06/09/2023 15:30 EDT 06/10/2023 17:44 EDT us Provider Outr Resulting Lab CHEMISTRY & BLOOD GA S ORDERABLES Final Result Performing Organization Address City/[facility]/ZIP Co de Phone Number [facility] [address] [place] [address] * CA 125 (06/09/2023 15:30 EDT) CA 125 16 <30 U/mL 06/13/2023 10:57 EDT [facility] Comment: NOTE: Serum CA 125 concentration should not be interpreted as absolute evidence for the presence or absence of malignant disease. Assayed on Siemens ADVIA Centaur XPT using chemiluminescent technology. ??Values obtained by using different assay methods cannot be used interchangeably. Blood VENOUS BLOOD / Unknown 06/09/2023 15:30 EDT 06/10/2023 17:44 EDT us Provider Outr Resulting Lab CHEMISTRY & BLOOD GA S ORDERABLES Final Result Performing Organization Address [facility] Co de Phone Number [facility] [address] [place] [address] * ANTI NUCLEAR AB (ELAINE), IFA (06/09/2023 15:30 EDT) ELAINE Interpretation Negative Negative 2022 14:20 EDT [facility] Comment:No titer performed, ELAINE Screen is negative. Blood VENOUS BLOOD / Unknown 06/09/2023 15:30 EDT 06/10/2023 17:44 EDT Narrative [facility] - 06/13/2023 14:20 EDT Results were obtained with the INOVA NOVA Lite HEp-2 ELAINE Kit by indirect immunofluorescence. us Provider Outr Resulting Lab IMMUNOLOGY AND SEROL OGY ORDERABLES Final Result Performing Organization Address City/[facility]/ZIP Co de Phone Number [facility] [address] [place] [address] documented in this encounter Visit Diagnoses Not on filedocumented in this encounter Care Teams Vp Care Management Relationship Specialty Start Date End Date Rachel Murray APRN 26 [facility] [address] [place] [address] PCP - General 09/10/15 documented as of this encounter
--- OUTSIDE RECORDS SUMMARY | 2024-11-29 10:57 | XMS_ITS | Encounter Summary ---
Author Organization [facility] Address [address] [place] [address] Care Team Providers Care International Trade Teacher Name Role Phone Rachel Murray AYO Primary Care Provider [phone] [phone] Reason for Referral * (Routine/Next Available) - Receiving Office to Obtain Authorization Specialty Diagnoses / Procedures Referred By Contac t Referred To Contact Procedures MR OUTSIDE IMAGES LEFT LOWER EXTREMITY Imaging, External Referral ID Status Reason Start Date Expiration Date Visits Requested Visits Authorized [id number] Receiving Office to Obtain Authorization 01/16/2024 1 1 Reason for Visit * (Routine/Next Available) - Receiving Office to Obtain Authorization Specialty Diagnoses / Procedures Referred By Contac t Referred To Contact Procedures MR OUTSIDE IMAGES LEFT LOWER EXTREMITY Imaging, External Referral ID Status Reason Start Date Expiration Date Visits Requested Visits Authorized [id number] Receiving Office to Obtain Authorization 01/16/2024 1 1 Encounter Details Date Type Department Care Team (Latest Contact Info) Description 12/01/2023 - 12/01/2023 23:59 EST Hospital Encounter [facility] Secondary Reads [place] Discharge Disposition: Home or Self Care Social History Tobacco Use Types Packs/Day Years [...] on file documented as of this encounter Medications at Time of Discharge aspirin/acetamin ophen/caffeine (EXCEDRIN EXTRA STRENGTH ORAL) Take by mouth. buPROPion (WELLBUTRIN) 100 mg tablet Take 100 mg by mouth 2 times daily. esomeprazole (NEXIUM) 20 mg capsule Take 20 mg by mouth daily. fluticasone propionate (FLONASE) 50 mcg/actuation nasal spray Instill 100 mcg into both nostrils daily. gabapentin (NEURONTIN) 300 mg capsule Take 300 mg by mouth 3 times daily. ibuprofen (MOTRIN) 200 mg tablet Take 200 mg by mouth every 6 hours. loratadine (CLARITIN) 10 mg tablet Take 10 mg by mouth daily. lubiprostone (AMITIZA) 24 mcg capsule Take 1 Cap by mouth 2 times daily. 60 Cap 2 08/05/2020 Multivitamins with Minerals tablet tablet Take 1 Tab by mouth daily. omeprazole (PRILOSEC) 20 mg capsuleIndicatio ns:gastroesophag eal reflux disease Take 20 mg by mouth daily polyethylene glycol (GOLYTELY) 236-22.74-6.74 -5.86 gram suspensionIndica tions:BRBPR (bright red blood per rectum) Follow instructions on 'colonoscopy preparation instructions' sheet. 1 Bottle 0 09/19/2015 polyethylene glycol 3350 (MIRALAX) 17 gram packet Take 17 g by mouth daily. senna-docusate (PERICOLACE) 8.6-50 mg per tablet Take 1 Tab by mouth 2 times daily. topiramate (TOPAMAX) 25 mg sprinkle capsule Take 75 mg by mouth 2 times daily. documented as of this encounter Discharge Disposition Disposition Code Departure Means Destination Home or Self Care documented in this encounter Plan of Treatment Not on file documented as of this encounter Procedures Procedure Name Priority Date/Time Associated Diagnosis Comments MR OUTSIDE IMAGES LEFT LOWER EXTREMITY Routine 12/01/2023 9:41 EST documented in this encounter Results * MR OUTSIDE IMAGES LEFT LOWER EXTREMITY (12/01/2023 9:41 EST) Narrative 01/16/2024 9:42 EDT This is a non-reportable exam. us External Imaging IMG OTHER IMAGING ORDERABLES Fi nal Result documented in this encounter Visit Diagnoses Not on filedocumented in this encounter Care Teams International Trade Teacher Relationship Specialty Start Date End Date Rachel Murray, EKG MANAGER [address] [facility] [address] [place] [address] PCP - General 09/10/15 documented as of this encounter
--- OUTSIDE RECORDS SUMMARY | 2024-11-29 10:57 | XMS_ITS | Encounter Summary ---
Author Organization [facility] Address [address] [place] [address] Care Team Providers Care Hard Rock Drill Operator Name Role Phone Rachel Murray AYO Primary Care Provider [phone] Encounter Details Date Type Department Care Team (Late st Contact Info) Description 07/26/2024 Lab Requisition [facility] Pathology & Laboratory Medicine - [facility] [address] [place] [address] Chuck Drake MD [address] [place] [address], [address] [place] [address] Epigastric pain Social History Tobacco Use Types Packs/Day Years [...] Procedure Name Priority Date/Time Associated Diagnosis Comments SURGICAL PATHOLOGY Today 07/25/2024 11 :45 EDT Epigastric pain documented in this encounter Results * SURGICAL PATHOLOGY (07/25/2024 11:45 EDT) Note to Patient The following pathology results have been interpreted by your pathologist and may be available to you before your health provider has had the opportunity to review them. Please allow time for your provider to receive these results and explore management options, if applicable. 07/30/2024 8:39 [facility] Final Diagnosis A. SMALL INTESTINE, DUODENUM, BIOPSY: - Small bowel mucosa with no specific pathological abnormalities. B. STOMACH, ANTRUM, BIOPSY: - Antral-type mucosa with chemical (reactive) gastropathy. - Negative for Helicobacter pylori microorganisms on H&E stained sections. C. STOMACH, BODY, BIOPSY: - Oxyntic-type mucosa with no significant diagnostic abnormality. - Negative for Helicobacter pylori microorganisms on H&E stained sections. 07/30/2024 8:39 [facility] Attestation There was significant resident/fellow involvement in the diagnostic evaluation of this case. By the signature below, the attending physician certifies that they have personally conducted a gross and/or microscopic examination of the described specimens and rendered or confirmed the above diagnosis. 07/30/2024 8:39 [facility] at 0839 Clinical History Dyspepsia; R/O H. pylori 07/30/2024 8:39 [facility] Gross Description A. Received in formalin labelled with proper patient identification (initials L, H) and 1. Duodenal are 3 tiwari tissues (0.3 x 0.1 x 0.1 cm to 0.15 x 0.1 by less than 0.1 cm). Entirely submitted in A1. Please note the smallest tissue may not survive processing. B. Received in formalin labelled with proper patient identification (initials L, H) and 2. Antrum are 2 tiwari tissues (0.5 x 0.25 x 0.1 cm and 0.5 x 0.1 x 0.1 cm). Entirely submitted in B1. C. Received in formalin labelled with proper patient identification (initials L, H) and 3. Body are 2 tiwari tissues (0.7 x 0.1 x 0.1 cm and 0.3 x 0.1 x 0.1 cm). Entirely submitted in C1. Monika Alarcon 07/26/2024 9:01 07/30/2024 8:39 EDT [facility] Resident/Sunil w: Sabas Gil[place] [facility] 07/30/2024 8:39 EDT [facility] Performing Lab [facility] 07/30/2024 8:39 EDT [facility] Scanned Images 07/30/2024 8:39 EDT [facility] Tissue STOMACH STRUCTURE / Unknown 07/25/2024 11:45 EDT 07/26/2024 7:40 EDT Tissue specimen (specimen) STOMACH STRUCTURE / Unknown 07/25/2024 11:45 EDT 07/26/2024 7:42 EDT Tissue specimen (specimen) STOMACH STRUCTURE / Unknown 07/25/2024 11:45 EDT 07/26/2024 7:42 EDT us Chuck Drake MD PATHOLOGY ORDERABLES Final Resu lt Performing Organization Address City/State/[facility] Co de Phone Number [facility] [address] [place] [address] documented in this encounter Visit Diagnoses Diagnosis Epigastric pain Abdominal pain, epigastric documented in this encounter Care Teams Hard Rock Drill Operator Relationship Specialty Start Date End Date Rachel Murray APRN 26 [facility] [address] [place] [address] PCP - General 09/10/15 documented as of this encounter
--- OUTSIDE RECORDS SUMMARY | 2024-11-29 10:57 | XMS_ITS | Encounter Summary ---
Author Organization [facility] Address [address] [place] [address] Care Team Providers Care Emergency Department Nurse Name Role Phone Rachel Murray AYO Primary Care Provider [phone] [phone] Reason for Visit * Reason Onset Date Comments Other 06/18/2020 nai study ( scheduling) Encounter Details Date Type Department Care Team (Late st Contact Info) Description 06/18/2020 Telephone [facility] Gastroenterology - [facility] [address] [place] [address] Bessy Caballero RN Other (nai study ( scheduling) ) Social History Tobacco Use Types Packs/Day Years [...] on file documented as of this encounter Miscellaneous Notes * Telephone Encounter - Bessy Caballero RN - 06/18/2020 1233 EDT Nai study planned for 06/19/20. Patient will swallow the capsule on 06/19/20 and have x-rays doneon 06/20, 06/24 and 06/26 @ 8:30am. Patient is aware. Orders faxed to [facility] @ [phone]. Left a detailed message for patient. documented in this encounter Plan of Treatment Not on file documented as of this encounter Visit Diagnoses Diagnosis Other constipation- Primary documented in this encounter Orders Equipment Count Last Ordered Date First Orde red Date SITZ 1 06/18/2020 documented in this encounter Care Teams Emergency Department Nurse Relationship Specialty Start Date End Date Rachel Murray APRN [address] [place] [address] PCP - General 09/10/15 documented as of this encounter
--- OUTSIDE RECORDS SUMMARY | 2024-11-29 10:57 | XMS_ITS | Clinical Summary ---
Author Organization [facility] Address [address] [place] [address] Care Team Providers Care Forestry Workers Name Role Phone Rachel Murray Lazarus ROLLINS Primary Care Provider [phone] [phone] Allergies No known active allergies Medications polyethylene glycol (GOLYTELY) 236-22.74-6.74 -5.86 gram suspensionIndic ations:BRBPR (bright red blood per rectum) Follow instructions on 'colonoscopy preparation instructions' sheet. 1 Bottle 0 5 Active Additional Information Patient not taking.Reported on 02/12/2020 omeprazole (PRILOSEC) 20 mg capsuleIndicati ons:gastroesoph ageal reflux disease Take 20 mg by mouth daily Active gabapentin (NEURONTIN) 300 mg capsule Take 300 mg by mouth 3 times daily. Active esomeprazole (NEXIUM) 20 mg capsule Take 20 mg by mouth daily. Active topiramate (TOPAMAX) 25 mg sprinkle capsule Take 75 mg by mouth 2 times daily. Active polyethylene glycol 3350 (MIRALAX) 17 gram packet Take 17 g by mouth daily. Active senna-docusate (PERICOLACE) 8.6-50 mg per tablet Take 1 Tab by mouth 2 times daily. Active fluticasone propionate (FLONASE) 50 mcg/actuation nasal spray Instill 100 mcg into both nostrils daily. Active loratadine (CLARITIN) 10 mg tablet Take 10 mg by mouth daily. Active Multivitamins with Minerals tablet tablet Take 1 Tab by mouth daily. Active lubiprostone (AMITIZA) 24 mcg capsule Take 1 Cap by mouth 2 times daily. 60 Cap 2 0 Active Additional Information Patient not taking.Reported on 02/17/2021 buPROPion (WELLBUTRIN) 100 mg tablet Take 100 mg by mouth 2 times daily. Active ibuprofen (MOTRIN) 200 mg tablet Take 200 mg by mouth every 6 hours. Active aspirin/acetami nophen/caffeine (EXCEDRIN EXTRA STRENGTH ORAL) Take by mouth. Active Active Problems No known active problems Medical History Medical History Date Comments GERD (gastroesophageal reflux disease) Social History Tobacco Use Types Packs/Day Years [...] on file Sexual Orientation Not on file Obstetrics History Last Filed Vital Signs Vital Sign Reading Time Taken Comments Blood Pressure 117/75 02/17/2021 1451 EDT Pulse 90 02/17/2021 1451 EDT Temperature 36.1 ??C (97 ??F) 11/24/2015 1343 EST Respiratory Rate 14 02/12/2020 1417 EDT Oxygen Saturation 98% 11/24/2015 1411 EST Inhaled Oxygen Concentration - - Weight 75 kg (165 lb 6.4 oz) 02/17/2021 1451 EDT Height 162.6 cm (5' 4.02) 02/17/2021 1451 EDT Body Mass Index 28.38 02/17/2021 1451 EDT Plan of Treatment Health Maintenance Due Date Last Done Comments Hepatitis C Screen 1975 Hepatitis B Vaccine (1 of - + 3-dose series) 02/03 COVID-19 Vaccine (2023- season) 2024 Colonoscopy (Colon Cancer Screening) Discontinued 05/2016 Colorectal Cancer Screening Discontinued Cologuard (Colon Cancer Screening) Discontinued FIT Test (Colon Cancer Screening) Discontinued Sigmoidoscopy (Colon Cancer Screening) Discontinued Procedures Procedure Name Priority Date/Time Associated Diagnosis Comments COLONOSCOPY PROCEDURE Routine 11/24/2015 from Last 3 Months or Most Recently Relevant to Health Maintenance Results * COLONOSCOPY (11/24/2015) Colonoscopy [facility] Comment:f/u with family phys ican as needed Colonoscopy, External [facility] Anatomical Region Laterality Modality Endoscopy 11/24/2015 us Historical Provider GI PROCEDURE ORDERABLES F inal Result from Last 3 Months or Most Recently Relevant to Health Maintenance Insurance [facility] Care Teams Forestry Workers Relationship Specialty Start Date End Date Rachel Murray APRN [facility] [facility] [address] [place] [address] PCP - General 09/10/15
--- OUTSIDE RECORDS SUMMARY | 2024-11-29 10:57 | XMS_ITS | Encounter Summary ---
Author Organization [facility] Address [address] [place] [address] Care Team Providers Care Mica Layer Name Role Phone Rachel Murray AYO Primary Care Provider [phone] Reason for Visit * Reason Onset Date Comments Other 02/17/2021 Encounter Details Date Type Department Care Team (Late st Contact Info) Description 02/17/2021 Telephone [facility] Gastroenterology - [facility] [address], [place] [id number] Manish Navarro MD [address] [facility] [address] [place] [address] Other Social History Tobacco Use Types Packs/Day Years [...] encounter Miscellaneous Notes * Telephone Encounter - Perla Gardner - 02/17/2021 6019 EDT [facility] Gastroenterology/Hepatology Clinic Called patient's [facility] pharmacy to obtain more information regarding Amitiza cost - patient hasnever filled. Per pharmacy, copay through insurance is $55 for generic. Pharmacy does not have in stock and would need to order it. Called patient to discuss - she states she is still unable to afford $55 copay for generic Amitiza.Provided patient with contact information for [facility] ([phone]) and recommended she contact this program. If she qualifies, copay for Amitiza would be covered if filled through a [facility] outpatient pharmacy. Patient will call [facility] tomorrow morning and follow up with GI clinic if she is unable to receive assistance through [facility]. [employer] dose have a patient assistance program for Amitiza as a back up, however patient would need to be at 500% of FPL to qualify. Perla Gardner, PharmD Pharmacist Clinician - Gastroenterology/Hepatology 02/17/2021 * Telephone Encounter - Lisset Seals - 02/17/2021 1542 EDT Patient reaching out to let us know Rx Amitiza is not being fully covered by insurance and it is $97 a month which she can not afford Is there a generic or a coupon we can offer this patient? documented in this encounter Plan of Treatment Not on file documented as of this encounter Visit Diagnoses Not on filedocumented in this encounter Care Teams Mica Layer Relationship Specialty Start Date End Date Rachel Murray APRN [address] [place] [address] PCP - General 09/10/15 documented as of this encounter
--- OUTSIDE RECORDS SUMMARY | 2024-11-29 10:57 | XMS_ITS | Encounter Summary ---
Author Organization [facility] Address [address] [place] [address] Care Team Providers Care [place] Name Role Phone Rachel Murray APRN Primary Care Provider [phone] Reason for Visit * Test (Routine) - Closed Specialty Diagnoses / Procedures Referred By Contact Referred To Contact Gastroenterology and Hepatology Diagnoses GERD (gastroesophageal reflux disease) Procedures UPPER ENDOSCOPY Bev Ramesh MD Phone: tel:[phone] fax:[phone] [facility] Gastroenterology [address] [address] Phone: tel: fax: Referral ID Status Reason Start Date Expiration Date Visits Re quested Visits Authorized [id number] Closed 09/15/2015 1 1 Encounter Details Date Type Department Care Team (Latest Contact Info) Description 11/24/2015 12:10 EST - 11/24/2015 23:59 EST Hospital Encounter [facility] Endoscopy [address] [address] Ravinder Keith MD Discharge Disposition: Home or Self Care Social History Tobacco Use Types Packs/Day Years Used Date Smoking Tobacco: Never Alcohol Use Standard Drinks/Week Comments No 0 (1 standard drink = 0.6 oz pur e alcohol) Comments Unknown Sex and Gender Information Value Date Recorded Sex Assigned at Not on file Legal Sex Female 21:34 EDT Gender Identity Not on file Sexual Orientation Not on file documented as of this encounter Medications at Time of Discharge omeprazole (PRILOSEC) 20 mg capsuleIndicatio ns:gastroesophag eal reflux disease Take 20 mg by mouth daily polyethylene glycol (GOLYTELY) 236-22.74-6.74 -5.86 gram suspensionIndica tions:BRBPR (bright red blood per rectum) Follow instructions on 'colonoscopy preparation instructions' sheet. 1 Bottle 0 09/19/2015 documented as of this encounter Discharge Disposition Disposition Code Departure Means Destination Home or Self Penitentiary documented in this encounter Plan of Treatment Not on file documented as of this encounter Visit Diagnoses Not on filedocumented in this encounter Care Teams [place] Relationship Specialty Start Date End Date Rachel Murray APRN [address] [place] [address] PCP - General 09/10/15 documented as of this encounter
--- OUTSIDE RECORDS SUMMARY | 2024-11-29 10:57 | XMS_ITS | Encounter Summary ---
Author Organization [facility] Address [address] [place] [address] Care Team Providers Care Quartz Orientator Name Role Phone Rachel Murray STABLE CLEANER Primary Care Provider [phone] [phone] Encounter Details Date Type Department Care Team (Latest Contact Info) Description 06/02/2022 Lab Requisition [facility] Pathology & Laboratory Medicine - [facility] [address] [place] [address] Rachel Murray, STABLE CLEANER [address] [facility] [address] [place] [address] Encounter for general adult medical examination without abnormal findings; Encounter for gynecological examination (general) (routine) without abnormal findings; Encounter for screening for malignant neoplasm of cervix Social History Tobacco Use Types Packs/Day Years [...] Procedure Name Priority Date/Time Associated Diagnosis Comments PAP TEST Today 06/01/2022 8:15 EDT Encounter for general adult medical examination without abnormal findings Encounter for gynecological examination (general) (routine) without abnormal findings Encounter for screening for malignant neoplasm of cervix HPV DNA DETECTION WITH GENOTYPING, PCR Today 06/01/2022 8:15 EDT Encounter for general adult medical examination without abnormal findings Encounter for gynecological examination (general) (routine) without abnormal findings Encounter for screening for malignant neoplasm of cervix documented in this encounter Results * HUMAN PAPILLOMAVIRUS (HPV) DETECTION-HIGH RISK TYPES (06/01/2022 8:15 EDT) HPV other High Risk types, PCR Negative Negative 06/10/2022 18:36 EDT [facility] Comment:No E6 or E7 mRNA is detected from HPV types 16,18,31,33,35,39,45,51,52,56,58,59,66, and 68 by apprentice technician mediated amplification. Papanicolaou smear specimen (specimen) CERVIX UTERI STRUCTURE / Unknown 06/01/2022 8:15 EDT 06/09/2022 11:59 EDT us Rachel Murray STABLE CLEANER MICROBIOLOGY - GENERAL OR DERABLES Final Result Performing Organization Address City/State/[facility] Co de Phone Number [facility] [address] [place] [id number] * PAP TEST (06/01/2022 8:15 EDT) Specimens A. Cervix and/or Endocervix , ThinPrep Imaging System with Manual Evaluation 06/10/2022 18:36 EDT [facility] Specimen Adequacy Satisfactory for Evaluation - transformation zone component absent 06/10/2022 18:36 EDT [facility] General Categorization Negative for intraepithelial lesion or malignancy 06/10/2022 18:36 EDT [facility] Attestation . 06/10/2022 18:36 T [facility] at 1836 Clinical History See below 06/10/20 18:36 EDT [facility] HPV The result for the Human Papillomavirus (HPV) Detection-High Risk Types is Negative. No E6 or E7 mRNA is detected from HPV types 16,18,31,33,35,39 ,45,51,52,56,58,5 9,66, and 68 by apprentice technician mediated amplification.Arabella ting was performed on specimen [id number] and was resulted on 06/10/2022 1827 EDT by MIRZA, LAB INSTRUMENT RESULTS IN 06/10/2022 18:36 EDT [facility] Performing Lab [facility] 06/10/2022 18:36 EDT [facility] Scanned Images 06/10/2022 18:36 EDT [facility] Papanicolaou smear specimen (specimen) CERVIX UTERI STRUCTURE / Unknown 06/01/2022 8:15 EDT 06/02/2022 10:09 EDT us Rachel Murray APRN PATHOLOGY ORDERABLES Love nair Result [facility] [address] [place] [address] documented in this encounter Visit Diagnoses Diagnosis Encounter for general adult medical examination without abnormal findings Unspecified general medical examination Encounter for gynecological examination (general) (routine) without abnormal findings Encounter for screening for malignant neoplasm of cervix Screening for malignant neoplasm of the cervix documented in this encounter Care Teams Quartz Orientator Relationship Specialty Start Date End Date Rachel Murray APRN [address] [place] [address] PCP - General 09/10/15 documented as of this encounter
--- OUTSIDE RECORDS SUMMARY | 2024-11-29 10:57 | XMS_ITS | Encounter Summary ---
Author Organization [facility] Address [address] [place] [address] Care Team Providers Care Principal Technical Architect Name Role Phone Rachel Murray TESTER/LIFT TRUCKER Primary Care Provider [phone] [phone] Encounter Details Date Type Department Care Team (Late st Contact Info) Description 12/03/2015 Orders Only [facility] General Surgery - [facility] [address] [place], [place] [address] Ravinder Keith MD Social History Tobacco Use Types Packs/Day Years [...] Associated Diagnosis Comments COLONOSCOPY PROCEDURE Routine 11/24/2015 documented in this encounter Results * COLONOSCOPY (11/24/2015) Colonoscopy [facility] Comment:f/u with family phys ican as needed Colonoscopy, External [facility] Anatomical Region Laterality Modality Endoscopy 11/24/2015 us Historical Provider GI PROCEDURE ORDERABLES F inal Result documented in this encounter Visit Diagnoses Not on filedocumented in this encounter Care Teams Principal Technical Architect Relationship Specialty Start Date End Date Rachel Murray APRN [address] [place] [id number] PCP - General 09/10/15 documented as of this encounter
--- OUTSIDE RECORDS SUMMARY | 2024-11-29 10:57 | XMS_ITS | Encounter Summary ---
Author Organization [facility] Address [address] [place] [address] Care Team Providers Care Efficiency Miner Blasting Name Role Phone Trevor Rachel Laazrus ROLLINS Primary Care Provider [phone] [phone] Reason for Visit * (Routine) - Receiving Office to Obtain Authorization Specialty Diagnoses / Procedures Referred By Ana cavanaugh Referred To Contact Procedures XR OUTSIDE IMAGES BODY Unknown, Provider, MD Referral ID Status Reason Start Date Expiration Date Visits Requested Visits Authorized [id number] Receiving Office to Obtain Authorization 06/26/2020 1 1 Encounter Details Date Type Department Care Team (Latest Contact Info) Description 06/26/2020 10:45 EDT - 06/26/2020 23:59 EDT Hospital Encounter [facility] Secondary Reads [place] Discharge Disposition: Home or [...] this encounter Medications at Time of Discharge esomeprazole (NEXIUM) 20 mg capsule Take 20 mg by mouth daily. fluticasone propionate (FLONASE) 50 mcg/actuation nasal spray Instill 100 mcg into both nostrils daily. gabapentin (NEURONTIN) 300 mg capsule Take 300 mg by mouth 3 times daily. loratadine (CLARITIN) 10 mg tablet Take 10 mg by mouth daily. Multivitamins with Minerals tablet tablet Take 1 [...] Procedure Name Priority Date/Time Associated Diagnosis Comments XR OUTSIDE IMAGES BODY Routine 06/26/2020 10:45 EDT documented in this encounter Results * XR OUTSIDE IMAGES BODY (06/26/2020 10:45 EDT) Narrative 06/26/2020 10:45 EDT This is a non-reportable exam. us Provider Unknown MD MANE OTHER IMAGING ORDERABLES Final Result documented in this encounter Visit Diagnoses Not on filedocumented in this encounter Care Teams Efficiency Miner Blasting Relationship Specialty Start Date End Date Rachel Murray APRN 26 [facility] [address] [place] [phone] PCP - General 09/10/15 documented as of this encounter
--- OUTSIDE RECORDS SUMMARY | 2024-11-29 10:57 | XMS_ITS | Encounter Summary ---
Author Organization [facility] Address [address] [place] [address] Care Team Providers Care Commercial Lender Name Role Phone Rachel Murray APRN Primary Care Provider [phone] [phone] Reason for Visit * Reason Comments Constipation Abdominal Pain * Consult (Routine) - Closed Specialty Diagnoses / Procedures Referred By Contact Referred To Contact Gastroenterology and Hepatology Diagnoses IBS (irritable bowel syndrome) Constipated Rachel Murray APRN [address] [place] [address] Phone: tel:[phone] fax:[phone] [facility] Gastroenterology [address] [address] Phone: tel: fax: Referral ID Status Reason Start Date Expiration Date Visits Re quested Visits Authorized [id number] Closed 1 1 Encounter Details Date Type Department Care Team (Late st Contact Info) Description 02/12/2020 14:20 EDT Telemedicine [facility] Gastroenterology [address] [address] Manish Navarro MD [address] [facility], [address] [place] [address] Constipation, unspecified constipation type (Primary Dx); Non-celiac gluten sensitivity Social History Tobacco Use Types Packs/Day Years [...] 14:17 EDT documented as of this encounter Last Filed Vital Signs Vital Sign Reading Time Taken Comments Blood Pressure - - Pulse - - Temperature - - Respiratory Rate 14 02/12/2020 1417 EDT Oxygen Saturation - - Inhaled Oxygen Concentration - - Weight 71.1 kg (156 lb 11.2 oz) 02/12/2020 1417 EDT per pt Height 162.6 cm (5' 4) 02/12/2020 1417 EDT Body Mass Index 26.9 02/12/2020 1417 EDT documented in this encounter Progress Notes * Manish Navarro MD - 02/12/2020 1420 EDT The concept of ???Telemedicine?? has been described to the patient. Patient has been informed of the anticipated benefits and possible risks. Patient understands the information provided regarding telemedicine, has had the opportunity to ask questions about this information, and all questions havebeen answered to patient???s satisfaction. Patient consents for the use of telemedicine in his/her medical care and authorizes the transmission of any relevant medical information to providers and their staff involved in patient???s medical or mental health care. This visit was performed via Video Visit. The visit was performed by telemedicine to limit potential exposure to the COVID-19 virus. Consent was performed. Dr. Navarro was at [facility], the patient was at home. Those present included Dr. Navarro, and [place]. Total time of the visit was 40 minutes. Chief Complaint: No chief complaint on file. History of Present illness: 45 year old previously diagnosed with IBS. In 2016 she had a normal colonoscopy by Dr. Ravinder Keith.She has severe constipation that she takes miralax and senna daily for. She has tried fiber supplementation in the past as well as the Low FODMAP diet. She also is gluten sensitive. She has not been throughly evaluated for celiac disease, however. When she eats gluten she becomes nauseous. Otherwise, she does not have nausea. She does not have dysphagia. She gained weight, and then lost some of it back. She has headaches. No fevers or chills. She can go up to 6 days without having a bowel movement, and after several days she becomes bloated. She does not have rectal bleeding. She does not smoke cigarettes. She drinks alcohol infrequently. She has been treated in the past for both anxiety and Depression, but is not currently being treated for these disorders. Past Medical History: Diagnosis Date ??? GERD (gastroesophageal reflux disease) Review of Systems: Review of Systems - Gastrointestinal ROS: positive for - constipation, gas/bloating, heartburn and nausea/vomiting negative for - appetite loss, hematemesis, melena, stool incontinence or swallowing difficulty/pain Labs: No results found for: ALT, AST, GGT, ALKPHOS, BILITOT No results found for: WBC, HGB, HCT, MCV, PLT No results found for: AMYLASE No results found for: LIPASE Imaging: CT scan: Abdominal Ultrasound: Endoscopic Procedures: Impression: Most likely constipation predominant IBS. I would like to rule out a metabolic cause of constipation as well as trying to better understand whether she does in fact have celiac disease or not. Plan: 1. Sitz Marker study-would do in about 2-3 months. This can be done in [facility] 2. Labs in 2-3 months 3. If above is unremarkable, could consider a trial of alosetron and/or a visit with Kavita in 3-6 months documented in this encounter Miscellaneous Notes * Addendum Note - Bessy Caballero RN - 02/12/2020 1420 EDTAddended by: BESSY CABALLERO on: 06/18/2020 12:55 Modules accepted: Orders documented in this encounter Plan of Treatment Not on file documented as of this encounter Visit Diagnoses Diagnosis Constipation, unspecified constipation type- Primary Non-celiac gluten sensitivity Allergy to other foods documented in this encounter Historical Medications * This list may reflect changes made after this encounter. Multivitamins with Minerals tablet tablet Take 1 Tab by mouth daily. loratadine (CLARITIN) 10 mg tablet Take 10 mg by mouth daily. fluticasone propionate (FLONASE) 50 mcg/actuation nasal spray Instill 100 mcg into both nostrils daily. senna-docusate (PERICOLACE) 8.6-50 mg per tablet Take 1 Tab by mouth 2 times daily. polyethylene glycol 3350 (MIRALAX) 17 gram packet Take 17 g by mouth daily. topiramate (TOPAMAX) 25 mg sprinkle capsule Take 75 mg by mouth 2 times daily. esomeprazole (NEXIUM) 20 mg capsule Take 20 mg by mouth daily. gabapentin (NEURONTIN) 300 mg capsule Take 300 mg by mouth 3 times daily. added in this encounter Care Teams Commercial Lender Relationship Specialty Start Date End Date Rachel Murray APRN [address] [address] PCP - General 09/10/15 documented as of this encounter
--- OUTSIDE RECORDS SUMMARY | 2024-11-29 10:57 | XMS_ITS | Encounter Summary ---
Author Organization [facility] Address [address] [place] [address] Care Team Providers Care Duplicating Machine Mechanic Name Role Phone TrevorBritneyRachel Lazarus ROLLINS Primary Care Provider [phone] [phone] Reason for Visit * (Routine) - Receiving Office to Obtain Authorization Specialty Diagnoses / Procedures Referred By Ana cavanaugh Referred To Contact Procedures XR OUTSIDE IMAGES BODY Unknown, Provider, MD Referral ID Status Reason Start Date Expiration Date Visits Requested Visits Authorized [id number] Receiving Office to Obtain Authorization 06/26/2020 1 1 Encounter Details Date Type Department Care Team (Latest Contact Info) Description 06/24/2020 - 06/24/2020 23:59 EDT Hospital Encounter [facility] Secondary Reads [place] Discharge Disposition: Home [...] Comments XR OUTSIDE IMAGES BODY Routine 06/26/2020 10:49 EDT documented in this encounter Results * XR OUTSIDE IMAGES BODY (06/26/2020 10:49 EDT) Narrative 06/26/2020 10:49 EDT This is a non-reportable exam. us Provider Unknown MD MANE OTHER IMAGING ORDERABLES Final Result documented in this encounter Visit Diagnoses Not on filedocumented in this encounter Care Teams Duplicating Machine Mechanic Relationship Specialty Start Date End Date Rachel Murray APRN [address] [facility] [address] [place] [address] PCP - General 09/10/15 documented as of this encounter
--- OUTSIDE RECORDS SUMMARY | 2024-11-29 10:57 | XMS_ITS | Encounter Summary ---
Author Organization [facility] Address [address] [place] [address] Care Team Providers Care Musical Instrument Maker Or Repairer Name Role Phone Rachel Murray AYO Primary Care Provider [phone] [phone] Reason for Visit * Reason Comments Other Encounter Details Date Type Department Care Team (Latest Contact Info) Description 06/19/2020 16:00 EDT Nurse Only [facility] [address] [place], [place] [id number] [facility], MB[employer] Other constipation (Primary Dx) Social History Tobacco Use Types Packs/Day Years [...] on file documented as of this encounter Progress Notes * Bessy Caballero RN - 06/19/2020 1600 EDT Patient was given the SITZMARKS capsule in the office. Informed patient to stop all laxatives, enemas and suppositories 5 days prior to swallowing the SITZMARKS capsule, and during the entire testingperiod. Informed patient to have x-rays done on Day 1, Day 5 and Day 7. All questions answered. Patient verbalized understanding. KAUSHIK Lot number : [id number] Expiration: 11/07 I was supervised by Dr. Mckenzie who was present and immediately available in the office suite. BESSY CABALLERO RN 06/19/2020 15:54 documented in this encounter Plan of Treatment Not on file documented as of this encounter Visit Diagnoses Diagnosis Other constipation- Primary documented in this encounter Care Teams Musical Instrument Maker Or Repairer Relationship Specialty Start Date End Date Rachel Murray APRN [address] [address] PCP - General 09/10/15 documented as of this encounter
--- OUTSIDE RECORDS SUMMARY | 2024-11-29 10:57 | XMS_ITS | Encounter Summary ---
Author Organization [facility] Address [address] [place] [address] Care Team Providers Care Senior Solutions Consultant Name Role Phone Marco Antonio Trevino APRN Primary Care Provider [phone] [phone] Encounter Details Date Type Department Care Team (Late st Contact Info) Description 12/28/2016 Results Only [facility] [phone] Marco Antonio Trevino, ASSESSMENT ANALYST [address] [facility] [address] [place] [address] Social History Tobacco Use Types Packs/Day Years [...] Name Priority Date/Time Associated Diagnosis Comments PAP TEST- RESULT ONLY Routine 12/28/2016 0:00 EDT documented in this encounter Results * PAP TEST- RESULT ONLY (12/28/2016 0:00 EDT) Pathology Report: CYTOPATHOLOGY REPORT Reports generated via electronic interface contain original data; however they are lacking the format of the original report. Caution should be taken when reading/interpreti ng unformatted reports. Name: ? ACTA GRIGGS ? Accession #: ? [id number] ? : ? 1975 (Age: 41) ??F ?Collect Date: ? 12/28/2016 ? Location: ? [facility] ? Receive Date: ? 12/30/2016 ? Provider: MARCO ANTONIO TREVINO ASSESSMENT ANALYST Copy to: ? Final Report SPECIMEN ADEQUACY ? Satisfactory for Evaluation - transformation zone component absent GENERAL CATEGORIZATION ? Negative for Intraepithelial Lesion or Malignancy ?? Last Menstrual Period: 11/30/2016 Hormonal/Contracep tive status: None Previous Gynecologic Pathology: ASC-US: 2009 Specimen/Source: ??Pap Test, Cervix/Endocervix, ThinPrep Imaging System with manual evaluation Document reviewed and electronically signed by: ? FIDENCIO Jones(ASCP) ? Report ??Date: 12/31/2016 15:50 HPV with Pap Test ? Date Ordered: ? 12/31/2016 ? Status: ?? Signed Out ?Date Complete: ? 01/03/2017 ? By: ??System Interface ? Date Reported: ? 01/03/2017 ? Interpretation RESULT: Negative for HPV. No E6 or E7 mRNA is detected from HPV types 16,18,31,33,35, 39,45,51,52,56,58, 59,66, and 68 by talent solutions manager mediated amplification. Comments Document reviewed and electronically signed by: ? System Interface ? Report date: 01/03/2017 By the signature above, the attending physician certifies that he/she has personally conducted a gross and/or microscopic examination of the described specimens and rendered or confirmed the above diagnosis. End of Report [facility] 12/28/2016 12/30/2016 us Marco Antonio Trevino APRN PATHOLOGY ORDERABLES Love nair Result [facility] [address] [place] [address] documented in this encounter Visit Diagnoses Not on filedocumented in this encounter Care Teams Senior Solutions Consultant Relationship Specialty Start Date End Date Marco Antonio Trevino APRN [address] [facility] [address] [place] [address] PCP - General 09/10/15 documented as of this encounter
--- OUTSIDE RECORDS SUMMARY | 2024-11-29 10:57 | XMS_ITS | Encounter Summary ---
Author Organization [facility] Address [address] [place] [address] Care Team Providers Care Chicken Boner Name Role Phone Rachel Murray APRN Primary Care Provider [phone] [phone] Encounter Details Date Type Department Care Team (Late st Contact Info) Description 10/29/2020 Orders Only [facility] General Surgery - [facility] [address] [place] [address] Helena Pham, RN [address] [place] [address] Social History Tobacco Use Types Packs/Day Years [...] on filedocumented in this encounter Care Teams Chicken Boner Relationship Specialty Start Date End Date Rachel Murray APRN [address] [place] [address] PCP - General 09/10/15 documented as of this encounter
--- OUTSIDE RECORDS SUMMARY | 2024-11-29 10:57 | XMS_ITS | Encounter Summary ---
Author Organization [facility] Address [address] [place] [address] Care Team Providers Care Format Proofreader Name Role Phone Rachel Murray APRN Primary Care Provider [phone] [phone] Reason for Referral * PT/OT/ST (Routine) - New Request Specialty Diagnoses / Procedures Referred By Ana cavanaugh Referred To Contact Diagnoses Constipation by delayed colonic transit Carolina Caballero MD Phone: tel: fax: Referral ID Status Reason Start Date Expiration Date Visits Requested Visits Authorized [id number] New Request Specialty Services Required 02/17/2021 1 1 Question Answer Reason for Request: defecatory disorder SITE [facility] Reason for Visit * Reason Comments New Patient Visit Constipation by lucila pires colonic transit * Consult (Routine) - Order Cancelled Specialty Diagnoses / Procedures Referred By Ana cavanaugh Referred To Contact General Surgery Diagnoses Constipation by delayed colonic transit Manish Navarro MD Phone: tel: fax: Carolina Caballero MD Phone: tel: fax: Referral ID Status Reason Start Date Expiration Date Visits Requested Visits Authorized [id number] Order Cancelled Specialty Services Required 0 1 1 Encounter Details Date Type Department Care Team (Late st Contact Info) Description 02/17/2021 15:00 EDT [facility] Visit [facility] - [facility] [address] [place] [address] Carolina Caballero MD [address] [facility], [facility], [address] [place] [address] Constipation by delayed colonic transit (Primary Dx); Pelvic floor dysfunction Social History Tobacco Use Types Packs/Day Years [...] on file documented as of this encounter Last Filed Vital Signs Vital Sign Reading Time Taken Comments Blood Pressure 117/75 02/17/2021 1451 EDT Pulse 90 02/17/2021 1451 EDT Temperature - - Respiratory Rate - - Oxygen Saturation - - Inhaled Oxygen Concentration - - Weight 75 kg (165 lb 6.4 oz) 02/17/2021 1451 EDT Height 162.6 cm (5' 4.02) 02/17/2021 1451 EDT Body Mass Index 28.38 02/17/2021 1451 EDT documented in this encounter Patient Instructions * Patient Instructions* Carolina Caballero MD - 02/17/2021 15:00 EDT Laura Woodard--[phone] documented in this encounter Progress Notes * Carolina Caballero MD - 02/17/2021 1500 EDT Colorectal Surgery Chief Complaint: constipation HPI: Patient is a 46 y.o. female being seen at the request of Mainsh Navarro MD for evaluation of constipation. Patient has a history of IBS. She can go up to 6 days without BM--and even longer. She feels she has had constipation her entire adult life. Not sure if she had it as a child. Currently having some mild bloating, no vomiting. No blood in stool. Sitz norma study 06/2020 with 9 rings retained on day 5 spread throughout the colon, consistent with delayed colonic transit. Day 1, rings within the colon. ?? Evaluated for celiac (negative, but gluten sensitive) Has been tested for thyroid disease recently and it's been negative ?? Using miraLAX (qam possibly twice daily) with senna only as needed, amitiza. Never solid BMs. Does occasionally have to strain to pass a soft BM , but does pass some on a daily. She has tried a squatty potty which on occasion has helped. No unintentional weight loss. No sexual abuse or pelvic trauma. Has tried: Low FODMAP Gluten avoidance (causes nausea) Used senna--stopped recently amitiza--never used because it was too expensive Hasn't used lactulose, amitiza, linzess or motegrity Colonoscopy: [facility]--2016: normal SHx; knee and ankle surgery Preg x 3, 1 miscarriage, 2 live births. D&Cs following each boys due to vaginal bleeding No forceps, wt < 8 lbs. No tears Review of Symptoms: Gen: no fevers, chills, sweats, no recent weight loss HEENT: no migraines, no changes in vision, no hearing loss CV: no CP or palpitations, able to climb a flight of stairs w/o difficulty Pulm: no SOB, no hx of asthma or inhaler use GI: no hx of constipation or diarrhea : no dysuria, urinary frequency or difficulty maintaining stream Musculoskeletal: no arthralgias or myalgias Neuro: no seizures, no numbness or tingling in the extremities Endocrine: no thyroid problems, no diabetes Psych: no anxiety or depression Heme: no hx of bleeding or bruising easily Skin: no hx of rashes, eczema, or psoriasis Mobility: ambulates w/o difficulty no cane / walker/ or wheelchair PMH PSH Past Medical History: Diagnosis Date ??? GERD (gastroesophageal reflux disease) No past surgical history on file. Social History Family history Social History Tobacco Use ??? Smoking status: Never Smoker ??? Smokeless tobacco: Never Used Substance Use Topics ??? Alcohol use: No No family history on file. Current Outpatient Medications Medication ??? esomeprazole (NEXIUM) 20 mg capsule ??? fluticasone propionate (FLONASE) 50 mcg/actuation nasal spray ??? gabapentin (NEURONTIN) 300 mg capsule ??? loratadine (CLARITIN) 10 mg tablet ??? lubiprostone (AMITIZA) 24 mcg capsule ??? Multivitamins with Minerals tablet tablet ??? omeprazole (PRILOSEC) 20 mg capsule ??? polyethylene glycol (GOLYTELY) 236-22.74-6.74 -5.86 gram suspension ??? polyethylene glycol 3350 (MIRALAX) 17 gram packet ??? senna-docusate (PERICOLACE) 8.6-50 mg per tablet ??? topiramate (TOPAMAX) 25 mg sprinkle capsule No current facility-administered medications for this visit. Allergies No Known Allergies Objective: There were no vitals taken for this visit. Physical Exam: Gen: awake, alert, and oriented x 3, NAD Neck: soft, no thyromegaly, no carotid bruits, no cervical lymphadenopathy CV: RRR no M/R/G Pulm: CTA bilat, no wheezes or rhonchi Abd: soft, nontender, nondistended, +bowel sounds Ext: warm, well perfused,no edema Anoscopy Procedure Note I explained the procedure, as well as benefits of the procedure, alternative treatments, and consequences of no treatment to patient. Verbal consent for the procedure was obtained. A pre-procedure verification was conducted prior to the procedure. Final verification/timeout immediately prior to procedure has been conducted by the attending provider, including all members of the procedural team as appropriate to their involvement in the procedure. The patient's identity, procedure, and when applicable the: side/site, patient position, availability of special equipment or special requirements was verbally confirmed prior to the procedure. With a apartment leasing consultant present the patient was placed in the left lateral decubitus position the buttockswere spread. The anoscope was inserted and the anal canal was inspected circumferentially. Findingswere Anus: normal Skin: intact Sensation and reflexes: no anal wink, intact sensation no prolapse or perineal decent with valsalva anal fissure: none no masses Hemorrhoids: none sphincter muscles: intact tender sphincter muscles without fissure incerased Tone, with pain on palpation of levator muscles With stimulation of defecation, patient has mild relaxation, but not complete relaxation of sphincter muscles Data Review: Labs: CBC: No results found for: WBC, RBC, HGB, HCT, PLTCMP: No results found for: GLUCOSEFINGE, NA, K, CL, CO2, BUN, CREATININE, MG, PHOS, CALCIUM, AMYLASE, LIPASE, AST, ALT, ALKPHOSCardiac: No results found for: CK, CKMBINDEX, TROPONINICoagulation: No results found for: PROTIME, INR, PTTABG: Assessment: Cata Griggs is a(n) 46 y.o. old female slow transit constipation and likely pelvic floor dysfunction with some pelvic floor dyssynergia. Plan: -Currently with soft stool, but unable to completely pass BMs -Have made referral to pelvic floor physical therapy in the [place] area with Laura Woodard. -Discussed that we used to do subtotal colectomy with possibility of ileorectal anastomoses for people with colonic inertia without pelvic floor dysfunction. Discussed that long-term, patients tend to have poor durability of this procedure in terms of bowel function, and is relatively high risk surgery. She would like to avoid surgery. -She will also discuss if there is any financial assistance that can be had for her for these motility medications. Carolina Caballero MD 02/10/2021 9:43 documented in this encounter Plan of Treatment Scheduled Referrals Name Type Priority Associated Diagnoses Orde r Schedule AMB CONS/FOLLOW UP PHYSICAL THERAPY Outpatient Referral Routine Constipation by delayed colonic transit Ordered: 02/17/2021 documented as of this encounter Visit Diagnoses Diagnosis Constipation by delayed colonic transit- Primary Slow transit constipation Pelvic floor dysfunction Pelvic muscle wasting documented in this encounter Historical Medications * This list may reflect changes made after this encounter. aspirin/acetaminop hen/caffeine (EXCEDRIN EXTRA STRENGTH ORAL) Take by mouth. ibuprofen (MOTRIN) 200 mg tablet Take 200 mg by mouth every 6 hours. buPROPion (WELLBUTRIN) 100 mg tablet Take 100 mg by mouth 2 times daily. added in this encounter Care Teams Format Proofreader Relationship Specialty Start Date End Date Rachel Murray APRN [address] [place] [phone] PCP - General 09/10/15 documented as of this encounter
--- OUTSIDE RECORDS SUMMARY | 2024-11-29 10:57 | XMS_ITS | Encounter Summary ---
Author Organization [facility] Address [address] [place] [address] Care Team Providers Care Pot Sander Name Role Phone Rachel Murray AYO Primary Care Provider [phone] Reason for Visit * Reason Onset Date Comments Other 08/01/2020 Results 08/05/2020 Encounter Details Date Type Department Care Team (Late st Contact Info) Description 08/01/2020 Telephone [facility] Gastroenterology - [address] [address] Benigno Lopez MD [address] [place] [address], [address] [place] [address] Other; Results Social History Tobacco Use Types Packs/Day Years [...] on file documented as of this encounter Ordered Prescriptions Prescription Sig Dispense Quantity Refills Last Filled Start Date End Date lubiprostone (AMITIZA) 24 mcg capsule Take 1 Cap by mouth 2 times daily. 60 Cap 2 08/05/2020 documented in this encounter Miscellaneous Notes * Telephone Encounter - Bessy Caballero RN - 08/05/2020 1554 EDT Slow colonic transit noted on abdominal x-rays done at [facility] on 06/20/20,06/24/20 and 06/26/20. Reports sent to scans. Patient is currently taking Miralax 1-2 capfuls per day and Senna tablet , one BID. She discontinued the Fiber Gummies as they caused excess bloating and gas. Per Dr. Navarro, patient to try Amitiza BID( take with food and water). Prescription sent to pharmacy. Reviewed signs and symptoms of bowel obstruction with instructions to go to the ER if these symptoms occur. Patient provided an update on her symptoms. She currently cannot eat a full meal because she feels full, develops abdominal pain, and occasionally SOB. She can only eat snacks duringthe day. She is on a gluten free diet. Dr. Navarro also suggests that she see Dr. Caballero. Referral placed. Patient is aware and verbalized understanding. * Telephone Encounter - Yvonne Greer - 08/05/2020 1142 EDT Calling again this week to check on results of sitz marker test. * Telephone Encounter - Madelaine Noguera - 08/01/2020 1100 EDT Pt is calling for results of her marker study/ Please call documented in this encounter Plan of Treatment Not on file documented as of this encounter Visit Diagnoses Diagnosis Constipation by delayed colonic transit- Primary Slow transit constipation documented in this encounter Care Teams Pot Sander Relationship Specialty Start Date End Date Rachel Murray APRN [address] [facility] [address] [place] [address] PCP - General 09/10/15 documented as of this encounter
--- OUTSIDE RECORDS SUMMARY | 2024-11-29 10:57 | XMS_ITS | Encounter Summary ---
Author Organization [facility] Address [address] [place] [address] Care Team Providers Care Residential Field Manager Name Role Phone Trevor Rachelcaryn Qiu APRN Primary Care Provider [phone] [phone] Reason for Visit * (Routine) - Receiving Office to Obtain Authorization Specialty Diagnoses / Procedures Referred By Ana cavanaugh Referred To Contact Procedures XR OUTSIDE IMAGES BODY Unknown, Provider, MD Referral ID Status Reason Start Date Expiration Date Visits Requested Visits Authorized [id number] Receiving Office to Obtain Authorization 06/20/2020 1 1 Encounter Details Date Type Department Care Team (Latest Contact Info) Description 06/20/2020 11:23 EDT - 06/20/2020 23:59 EDT Hospital Encounter [facility] Secondary Reads [place] Discharge Disposition: Home or [...] Diagnosis Comments XR OUTSIDE IMAGES BODY Routine 06/20/2020 11:23 EDT documented in this encounter Results * XR OUTSIDE IMAGES BODY (06/20/2020 11:23 EDT) Narrative 06/20/2020 11:23 EDT This is a non-reportable exam. us Provider Unknown MD MANE OTHER IMAGING ORDERABLES Final Result documented in this encounter Visit Diagnoses Not on filedocumented in this encounter Care Teams Residential Field Manager Relationship Specialty Start Date End Date Rachel Murray APRN [address] [address] [place] [phone] PCP - General 09/10/15 documented as of this encounter
--- OUTSIDE RECORDS SUMMARY | 2024-11-29 10:57 | XMS_ITS | Encounter Summary ---
Author Organization [facility] Address [address] [place] [address] Care Team Providers Care Insole And Outsole Preparer Name Role Phone Rachel Murray AYO Primary Care Provider [phone] Reason for Visit * Reason Comments Other Encounter Details Date Type Department Care Team (Late st Contact Info) Description 08/01/2020 Telephone [facility] [place] General Surgery - [facility] [address] [place], [place] [id number] Benigno Lopez MD [address] [facility], [facility] [address] [place] [address] Other Social History Tobacco Use [...] encounter Miscellaneous Notes * Telephone Encounter - Madelaine Noguera - 09/16/2020 1417 EST . documented in this encounter Plan of Treatment Not on file documented as of this encounter Visit Diagnoses Not on filedocumented in this encounter Care Teams Insole And Outsole Preparer Relationship Specialty Start Date End Date Rachel Murray APRN [address] [place] [phone] PCP - General 09/10/15 documented as of this encounter
--- OUTSIDE RECORDS SUMMARY | 2024-11-29 10:57 | XMS_ITS | Encounter Summary ---
Author Organization [facility] Address [address] [place] [address] Care Team Providers Care Chemical Dependency Nurse Name Role Phone Rachel Murray AYO Primary Care Provider [phone] [phone] Encounter Details Date Type Department Care Team (Late st Contact Info) Description 04/04/2024 Lab Requisition [facility] Pathology & Laboratory Medicine - [facility] [address] [place], [place] [address] Outr Resulting Lab, Provider Social History Tobacco [...] Procedure Name Priority Date/Time Associated Diagnosis Comments CELIAC DISEASE PANEL Routine 04/03/2024 9:45 EDT documented in this encounter Results * CELIAC DISEASE PANEL (04/03/2024 9:45 EDT) Tissue Transglutaminase Antibody, IgA <4.0 <20.0 CU 04/06/2024 10:56 EDT [facility] Comment: A negative result may be due to IgA deficiency and does not rule out celiac disease. Negative: <20.0 CU Weak Positive: 20.0-30.0 CU Positive: >30.0 CU Results were obtained with the GlobeRangerA Flash h-tTG IgA chemiluminescent immunoassay. Values obtained with different manufacturers' assay methods may not be used interchangeably. IgA 320 85 - 499 mg/dL 04/06/2024 10:56 EDT [facility] Celiac Disease Interpretation Negative Serology. Celiac disease unlikely. Approximately 10% of patients with celiac disease are seronegative. Patients who are already adhering to a gluten-free diet may also be seronegative. If celiac disease is highly clinically suspected, referral to gastroenterology for additional evaluation is recommended. 04/06/2024 10:56 EDT [facility] Blood VENOUS BLOOD / Unknown 04/03/2024 9:45 EDT 04/04/2024 17:08 EDT us Provider Outr Resulting Lab IMMUNOLOGY AND SEROL OGY ORDERABLES Final Result [facility] [address] [place] [address] documented in this encounter Visit Diagnoses Not on filedocumented in this encounter Care Teams Chemical Dependency Nurse Relationship Specialty Start Date End Date Rachel Murray APRN [address] [facility] [address] [place] [address] PCP - General 09/10/15 documented as of this encounter
--- OUTSIDE RECORDS SUMMARY | 2024-11-29 10:57 | XMS_ITS | Encounter Summary ---
Author Organization [facility] Address [address] [place] [address] Care Team Providers Care Aquatic Ecologist Name Role Phone Rachel Murray APRN Primary Care Provider [phone] [phone] Encounter Details Date Type Department Care Team (Late st Contact Info) Description 10/02/2019 Telephone [facility] Gastroenterology - [facility] [address] [place], [place] [address] [facility], [employer] Social History Tobacco Use Types Packs/Day Years [...] encounter Miscellaneous Notes * Telephone Encounter - Keyla Robertson - 10/02/2019 0932 EST LMOM to schedule sooner ov with [facility]. documented in this encounter Plan of Treatment Not on file documented as of this encounter Visit Diagnoses Not on filedocumented in this encounter Care Teams Aquatic Ecologist Relationship Specialty Start Date End Date Rachel Murray APRN [address] [place] [phone] PCP - General 09/10/15 documented as of this encounter
--- OUTSIDE RECORDS SUMMARY | 2024-11-29 10:57 | XMS_ITS | Encounter Summary ---
Author Organization [facility] Address [address] [place] [address] Care Team Providers Care Health Information Specialist Name Role Phone Rachel Murray AYO Primary Care Provider [phone] [phone] Reason for Visit * Reason Onset Date Comments Other 06/10/2020 Encounter Details Date Type Department Care Team (Late st Contact Info) Description 06/10/2020 Telephone [facility] Gastroenterology - [facility] [address] [place], [place] [id number] Bessy Caballero, RN Other Social History Tobacco Use Types Packs/Day [...] Telephone Encounter - Bessy Caballero RN - 06/10/2020 1791 EDT Patient was called to schedule a Sitzmarks study. She will stop all laxatives for 5 days prior to test. She will arrive at our office on 06/19/20 to swallow the capsule. She verbalized understanding. documented in this encounter Plan of Treatment Not on file documented as of this encounter Visit Diagnoses Not on filedocumented in this encounter Care Teams Health Information Specialist Relationship Specialty Start Date End Date Rachel Murray APRN [address] [place] [phone] PCP - General 09/10/15 documented as of this encounter
--- OUTSIDE RECORDS SUMMARY | 2024-11-29 10:57 | XMS_ITS | Encounter Summary ---
Author Organization [facility] Address [address] [place] [address] Care Team Providers Care Bridges Supervisor Name Role Phone Rachel Murray AYO Primary Care Provider [phone] [phone] Reason for Visit * Reason Onset Date Comments Follow-up 03/18/2020 Encounter Details Date Type Department Care Team (Late st Contact Info) Description 03/18/2020 Telephone [facility] Gastroenterology - [facility] [address] [place] [address] Bessy Caballero, RN Follow-up Social History Tobacco Use Types Packs/Day Years [...] Miscellaneous Notes * Telephone Encounter - Bessy Caballero, RN - 03/18/2020 1040 EDT Patient was called to review the process for the SitzMarks study . She will need to ingest the capsule at [facility], and then have the x-rays done a [facility]. Currently [facility] is not taking walk-in patient's for x-rays- per patient. Patient agrees tocontact our office at the end of this month to schedule the test. She verbalized understanding. documented in this encounter Plan of Treatment Not on file documented as of this encounter Visit Diagnoses Not on filedocumented in this encounter Care Teams Bridges Supervisor Relationship Specialty Start Date End Date Rachel Murray APRN [address] [place] [address] PCP - General 09/10/15 documented as of this encounter
--- OUTSIDE RECORDS SUMMARY | 2024-11-29 10:57 | XMS_ITS | Encounter Summary ---
Author Organization [facility] Address [address] [place] [address] Care Team Providers Care Sustainable Design Coordinator Name Role Phone Rachel Murray AYO Primary Care Provider +1 -[phone] Encounter Details Date Type Department Care Team (Late st Contact Info) Description 05/29/2024 Lab Requisition [facility] Pathology & Laboratory Medicine - [facility] [address] [place] [address] Trevor Dudley MD [address] [place], [place] [id number] Encounter for other general examination Social History Tobacco Use Types Packs/Day Years [...] Date/Time Associated Diagnosis Comments SURGICAL PATHOLOGY Today 05/25/2024 13 :51 EDT Encounter for other general examination documented in this encounter Results * SURGICAL PATHOLOGY (05/25/2024 13:51 EDT) Note to Patient The following pathology results have been interpreted by your pathologist and may be available to you before your health provider has had the opportunity to review them. Please allow time for your provider to receive these results and explore management options, if applicable. 06/07/2024 15:40 [facility] Final Diagnosis A. SYNOVIUM, RIGHT HIP, ? LOOSE BODIES? , BIOPSY: - Fragments of synovial-lined mature hyaline cartilage. See comment. 06/07/2024 15:40 [facility] Diagnosis Comment Histologic sections show strips of mature-appearing hyaline cartilage associated with synovial tissue. No osseous metaplasia is identified to suggest loose bodies. There are no giant cells, mononuclear cells, or villous architecture to suggest a diffuse type tenosynovial giant cell tumor. No pigment or significant inflammation is identified. 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 Correlation with radiographic findings and endoscopic impression is essential. This case has been discussed with Dr. Trevor Dudley on 06/06/24. 06/07/2024 15:40 [facility] Attestation By the signature below, the attending physician certifies that they have 1) personally conducted a gross and/or microscopic examination of the described specimen(s), and/or personally interpreted the results of laboratory testing of the described specimen(s), and 2) personally rendered or confirmed the above diagnosis. 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 Received in normal saline labelled with proper patient identification (initials L, H) and R hip loose bodies is a 2.0 x 1.0 x 0.2 cm aggregate of tiwari-white irregular soft tissue fragments. Entirely submitted in A1. RADHA BAUM(ASCP) 05/30/2024 8:21 06/07/2024 15:40 [facility] Performing Lab [facility] 15:40 [facility] Scanned Images 06/07/2024 15:40 EDT [facility] Tissue STRUCTURE OF SYNOVIAL MEMBRANE OF JOINT / Unknown 05/25/2024 13:51 EDT 05/29/2024 10:43 EDT us Trevor Dudley MD PATHOLOGY ORDERABLES Final Resul t [facility] [address] [place] [address] documented in this encounter Visit Diagnoses Diagnosis Encounter for other general examination documented in this encounter Care Teams Sustainable Design Coordinator Relationship Specialty Start Date End Date Rachel Murray APRN [address] [place] [address] PCP - General 09/10/15 documented as of this encounter
--- OUTSIDE RECORDS SUMMARY | 2024-11-29 10:57 | XMS_ITS | Referral Summary ---
Author Organization [facility] Address [address] [place] [address] Care Team Providers Care Director Of Search Engine Marketing Name Role Phone TrevorRachel ramos Lazarus ROLLINS Primary Care Provider +1 -[phone] Allergies No known active allergies Medications polyethylene [...] Active Active Problems No known active problems Social History Tobacco Use Types Packs/Day Years [...] on file Sexual Orientation Not on file Last Filed Vital Signs Vital Sign Reading [...] 28.38 02/17/2021 1451 EDT Plan of Treatment Not on file Procedures Procedure Name Priority Date/Time Associated Diagnosis Comments COLONOSCOPY PROCEDURE Routine 11/24/2015 from Last 3 Months or Most Recently Relevant to Health Maintenance Results * COLONOSCOPY (11/24/2015) Colonoscopy [facility] Comment:f/u with family phys ican as needed Colonoscopy, External [facility] Anatomical Region Laterality Modality Endoscopy 11/24/2015 us Historical Provider MD GI PROCEDURE ORDERABLES F inal Result from Last 3 Months or Most Recently Relevant to Health Maintenance Insurance [facility] Care Teams Director Of Search Engine Marketing Relationship Specialty Start Date End Date Rachel Murray APRN [address] [address] [place] [id number] PCP - General 09/10/15
--- OUTSIDE RECORDS SUMMARY | 2024-11-29 10:57 | XMS_ITS | Encounter Summary ---
Author Organization [facility] Address [address] [place] [address] Care Team Providers Care Plant Facilities Technician Name Role Phone Rachel Murray AYO Primary Care Provider +1 -[phone] Reason for Visit * Reason Onset Date Comments Other 06/24/2020 Encounter Details Date Type Department Care Team (Late st Contact Info) Description 06/24/2020 Telephone [facility] Gastroenterology - [place] [address], [place] [id number] Bessy Caballero, RN Other Social History Tobacco [...] Telephone Encounter - Bessy Caballero RN - 06/24/2020 5418 EDT Xray on 06/24/20 (Day 5) - 1/2 of the Sitz markers remain present in the right colon. Patient will proceed with the final x-ray on 06/26/20. She verbalized understanding. documented in this encounter Plan of Treatment Not on file documented as of this encounter Visit Diagnoses Not on filedocumented in this encounter Care Teams Plant Facilities Technician Relationship Specialty Start Date End Date Rachel Murray APRN [address] [place] [address] PCP - General 09/10/15 documented as of this encounter
--- OUTSIDE RECORDS SUMMARY | 2024-11-29 10:57 | XMS_ITS | Encounter Summary ---
Author Organization [facility] Address [address] [place] [address] Care Team Providers Care Ironworker Helper Shop Name Role Phone Rachel Murray AYO Primary Care Provider +1 -[phone] Reason for Visit * Reason Onset Date Comments Other 02/20/2020 Encounter Details Date Type Department Care Team (Late st Contact Info) Description 02/20/2020 Telephone [facility] Gastroenterology - [facility] [address] [place], [place] [id number] Manish Navarro MD [address] [facility] [address] [place] [address] Other Social History Tobacco Use [...] 14:17 EDT documented as of this encounter Miscellaneous Notes * Telephone Encounter - David Alvarado - 02/20/2020 0908 EDT Spoke to patient in regards to her recent follow up visit with Dr. Navarro. Per Dr. Navarro, Pt needed labs and a Sitz Marker Study done in 2 months. Faxed labs to [facility] per P'ts request. Forwarded GI nurse pool info to set up the Sitz Marker Study. documented in this encounter Plan of Treatment Not on file documented as of this encounter Visit Diagnoses Not on filedocumented in this encounter Care Teams Ironworker Helper Shop Relationship Specialty Start Date End Date Rachel Murray APRN [address] [place] [address] PCP - General 09/10/15 documented as of this encounter
--- OUTSIDE RECORDS SUMMARY | 2024-11-29 10:58 | XMS_ITS | Encounter Summary ---
Author Organization [facility] Address [facility] [place] [address] Care Team Providers Care Air Carrier Maintenance Inspector Name Role Phone Rachel Murray APRN Primary Care Provider +1 -[phone] Encounter Details Date Type Department Care Team (Late st Contact Info) Description 12/01/2023 Ancillary Procedure Radiology Library at [facility] [place] [address] Rachel Murray APRN [address] [place], [place] [address] Social History Tobacco Use Types Packs/Day Years Used Date Smoking Tobacco: Never Smokeless Tobacco: Never Sex and Gender Information Value Date Recorded Sex Assigned at Not on file Gender Identity Not on file Sexual Orientation Not on file documented as of this encounter Plan of Treatment Upcoming Encounters Date Type Department Care Team (Late st Contact Info) Description 01/23/2025 10:00 AM EDT Office Visit Dermatology at [facility] [address] [place] [address] documented as of this encounter Procedures Procedure Name Priority Date/Time Associated Diagnosis Comments FILM LIBRARY STORAGE ONLY MR HIP Routine 12/01/2023 12:00 AM EST documented in this encounter Results * Film Library- Storage Only MR Hip (12/01/2023 12:00 AM EST) Narrative [facility] - 12/07/2023 9:58 PM EST This exam is auto-finalizing. It's purpose is for storage only. Rachel Murray APRN IMG FILM LIBRARY ORDERABLES DH RAD [place], [place] documented in this encounter Visit Diagnoses Not on filedocumented in this encounter Care Teams Air Carrier Maintenance Inspector Relationship Specialty Start Date End Date Rachel Murray APRN [address] [place] [address] PCP - General Family Medicine 07/12/18 09/21/24 documented as of this encounter
--- OUTSIDE RECORDS SUMMARY | 2024-11-29 10:58 | XMS_ITS | Encounter Summary ---
Author Organization [facility] Address [facility] [place] [address] Care Team Providers Care Tobacco Dipper Name Role Phone Trevor Rachel Qiu AYO Primary Care Provider +1 -[phone] Reason for Referral * Consultation (Routine) - Closed Specialty Diagnoses / Procedures Referred By Contfaby t Referred To Contact Orthopaedics Diagnoses BILATERAL FEMOACETABULAR IMPINGEMENT AND TROCHANTERIC BURSITIS Trevor Dudley MD [address] [place] [address] Samuel Harp MD [facility] [place] [address] Referral ID Status Reason Start Date Expiration Date V isits Requested Visits Authorized [id number] Closed Consult, Test & Treat PCP Updated and/or Approved 12/07/2023 12/07/2024 12 12 Encounter Details Date Type Department Care Team (Latest Contact Info) Description 12/13/2023 Transcribe Orders eDH Incoming Referrals [phone] Trevor Dudley MD [address] [place], [place] [id number] Bilateral femoral hernia with gangrene, recurrence not specified Social History Tobacco Use Types Packs/Day Years [...] 10:00 AM EDT Office Visit Dermatology at [facility] [address] [place] [address] Scheduled Referrals Name Type Priority Associated Diagnoses Order Schedule Referral to Orthopaedics Outpatient Referral Routine Bilateral femoral hernia with gangrene, recurrence not specified Ordered: 12/13/2023 documented as of this encounter Visit Diagnoses Diagnosis Bilateral femoral hernia with gangrene, recurrence not specified documented in this encounter Care Teams Tobacco Dipper Relationship Specialty Start Date End Date Rachel Murray APRN [address] [place] [address] PCP - General Family Medicine 07/12/18 09/21/24 documented as of this encounter
--- OUTSIDE RECORDS SUMMARY | 2024-11-29 10:58 | XMS_ITS | Encounter Summary ---
Author Organization [facility] [place] [place] [address] Care Team Providers Care Talent Manager Name Role Phone Rachel Murray APRN Primary Care Provider +1 -[phone] Encounter Details Date Type Department Care Team (Late st Contact Info) Description 05/10/2023 Ancillary Procedure Radiology Library at [facility] [place] [address] Rachel Murray APRN [address] [place], [place] [address] Social History Tobacco Use Types Packs/Day Years [...] 10:00 AM EDT Office Visit Dermatology at [facility] [address] [place] [address] documented as of this encounter Procedures Procedure Name Priority Date/Time Associated Diagnosis Comments FILM LIBRARY STORAGE ONLY DX HIP Routine 05/10/2023 12:00 AM EDT documented in this encounter Results * Film Library- Storage Only DX Hip (05/10/2023 12:00 AM EDT) Narrative RAD - 12/07/2023 9:59 PM EST This exam is auto-finalizing. It's purpose is for storage only. Rachel Murray APRN IMG FILM LIBRARY ORDERABLES DH RAD [place], [place] documented in this encounter Visit Diagnoses Not on filedocumented in this encounter Care Teams Talent Manager Relationship Specialty Start Date End Date Rachel Murray APRN [address] [place] [address] PCP - General Family Medicine 07/12/18 09/21/24 documented as of this encounter
--- OUTSIDE RECORDS SUMMARY | 2024-11-29 10:58 | XMS_ITS | Encounter Summary ---
Author Organization [facility] [address] [place] [address] Care Team Providers Care Slot Service Specialist Name Role Phone Rachel Murray APRN Primary Care Provider +1 -[phone] Encounter Details Date Type Department Care Team (Late st Contact Info) Description 06/09/2021 Ancillary Procedure Radiology Library at [facility] [address] Rachel Murray APRN [address] [place], [place] [address] Social History Tobacco Use Types Packs/Day Years [...] 10:00 AM EDT Office Visit Dermatology at [facility] [address] [place] [address] documented as of this encounter Procedures Procedure Name Priority Date/Time Associated Diagnosis Comments FILM LIBRARY STORAGE ONLY MAMMO Routine 06/09/2021 12:00 AM EDT documented in this encounter Results * Film Library- Storage Only Mammo (06/09/2021 12:00 AM EDT) Narrative [facility] - 06/30/2021 10:42 AM EDT This exam is auto-finalizing. It's purpose is for storage only. Rachel Murray APRN IMG FILM LIBRARY ORDERABLES DH RAD [place], [place] documented in this encounter Visit Diagnoses Not on filedocumented in this encounter Care Teams Slot Service Specialist Relationship Specialty Start Date End Date Rachel Murray APRN [address] [place] [address] PCP - General Family Medicine 07/12/18 09/21/24 documented as of this encounter
--- OUTSIDE RECORDS SUMMARY | 2024-11-29 10:58 | XMS_ITS | Encounter Summary ---
Author Organization [facility] [place] [address] Care Team Providers Care Supervisor Agency Appointments Name Role Phone Rachel Murray APRN Primary Care Provider +1 -[phone] Encounter Details Date Type Department Care Team (Late st Contact Info) Description 06/26/2021 Telephone Hematology [place] [address] Farhana Varela Social History Tobacco Use Types Packs/Day Years Used Date Smoking Tobacco: Never Smokeless Tobacco: Never Sex and Gender Information Value Date Recorded Sex Assigned at Not on file Gender Identity Not on file Sexual Orientation Not on file documented as of this encounter Miscellaneous Notes * Telephone Encounter - Farhana Varela - 06/26/2021 3:14 PM EDT Cata Griggs 1975 [id number] Referring provider: Rachel Murray APRN Date of Referral: 06.26.21 Please review outside breast imaging dated: 06/24/21 Reason for exam and clinical history:left breast nodule @ 1:00 Category: 4 Questions to be answered: ? BX Sending Institution: [facility] Patient would like treatment at: [facility] Call pt at: documented in this encounter Plan of Treatment Upcoming Encounters Date Type Department Care Team (Late st Contact Info) Description 01/23/2025 10:00 AM EDT Office Visit Dermatology at [facility] [address] [place] [address] documented as of this encounter Visit Diagnoses Not on filedocumented in this encounter Care Teams Supervisor Agency Appointments Relationship Specialty Start Date End Date Rachel Murray APRN [address] [place] [address] PCP - General Family Medicine 07/12/18 09/21/24 documented as of this encounter
--- OUTSIDE RECORDS SUMMARY | 2024-11-29 10:58 | XMS_ITS | Encounter Summary ---
Author Organization [facility] [place] [address] Care Team Providers Care Equipment Service Technician Name Role Phone Rachel Murray AYO Primary Care Provider +1 -[phone] Encounter Details Date Type Department Care Team (Late st Contact Info) Description 08/21/[address] [facility] [place] [address] Jax Schaefer RN Social History Tobacco Use Types Packs/Day Years Used Date Smoking Tobacco: Never Smokeless Tobacco: Never Sex and Gender Information Value Date Recorded Sex Assigned at Not on file Gender Identity Not on file Sexual Orientation Not on file documented as of this encounter Miscellaneous Notes * Telephone Encounter - Ken [place] RN - 08/22/2018 10:11 AM EST Per Anne Vaughan APRN: Hello, Tylenol is fine. ??Physical therapy? 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 ??Her PCP will probably be able to come up with more ideas. Thank you for clarifying for her- she can stop taking other laxatives. ??Anne - message sent to patient stating above. * Telephone Encounter - Jax Schaefer RN - 08/21/2018 1:16 PM EST Patient calls. She is unsure if she was supposed to stop her other laxatives and stool softeners when starting Amitiza. Advised her I will check with Anne, but usually patients can stop other bowel medications and justtake Amitiza alone. She is planning to do bowel prep this weekend and then start. She would also like the name of the non-NSAID analgesic Anne recommended as it was not in her AVS so she can discuss with PCP. documented in this encounter Plan of Treatment Upcoming Encounters Date Type Department Care Team (Late st Contact Info) Description 01/23/2025 10:00 AM EDT Office Visit Dermatology at [facility] [address] [place] [address] documented as of this encounter Visit Diagnoses Not on filedocumented in this encounter Care Teams Equipment Service Technician Relationship Specialty Start Date End Date Rachel Murray APRN [address] [place] [address] PCP - General Family Medicine 07/12/18 09/21/24 documented as of this encounter
--- OUTSIDE RECORDS SUMMARY | 2024-11-29 10:58 | XMS_ITS | Encounter Summary ---
Author Organization [facility] [place] [address] Care Team Providers Care Wool Washing Machine Operator Name Role Phone Rachel Murray APRN Primary Care Provider +1 -[phone] Encounter Details Date Type Department Care Team (Late st Contact Info) Description 06/24/2021 Ancillary Procedure Radiology Library at [facility] [place] [address] Rachel Murray APRN [address] [place], [place] [address] Social History Tobacco Use Types Packs/Day Years [...] 10:00 AM EDT Office Visit Dermatology at [facility] [address] [place] [address] documented as of this encounter Procedures Procedure Name Priority Date/Time Associated Diagnosis Comments FILM LIBRARY-STORAGE ONLY US BREAST Routine 06/24/2021 12:00 AM EDT documented in this encounter Results * Film Library Storage Only US Breast (06/24/2021 12:00 AM EDT) Narrative [facility] - 06/30/2021 10:43 AM EDT This exam is auto-finalizing. It's purpose is for storage only. Rachel Murray APRN IMG FILM LIBRARY ORDERABLES DH RAD [place], [place] documented in this encounter Visit Diagnoses Not on filedocumented in this encounter Care Teams Wool Washing Machine Operator Relationship Specialty Start Date End Date Rachel Murray APRN [address] [place] [address] PCP - General Family Medicine 07/12/18 09/21/24 documented as of this encounter
--- OUTSIDE RECORDS SUMMARY | 2024-11-29 10:58 | XMS_ITS | Encounter Summary ---
Author Organization [facility] [place] [address] Care Team Providers Care Chief School Finance Officer Name Role Phone Unavailable Primary Care Provider Unavailabl e Encounter Details Date Type Department Care Team (Late st Contact Info) Description 07/20/2013 Ancillary Procedure Radiology Library at [facility] [place] [address] Rachel Murray APRN [address] [place] [address] Social History Tobacco Use Types Packs/Day Years Used Date Smoking Tobacco: Never Assessed Sex and Gender Information Value Date Recorded Sex Assigned at Not on file Gender Identity Not on file Sexual Orientation Not on file documented as of this encounter Plan of Treatment Upcoming Encounters Date Type Department Care Team (Late st Contact Info) Description 01/23/2025 10:00 AM EDT Office Visit Dermatology at [facility] [address] [place] [address] documented as of this encounter Procedures Procedure Name Priority Date/Time Associated Diagnosis Comments FILM LIBRARY STORAGE ONLY MAMMO Routine 07/20/2013 12:00 AM EDT documented in this encounter Results * Film Library- Storage Only Mammo (07/20/2013 12:00 AM EDT) Narrative [facility] - 06/30/2021 10:45 AM EDT This exam is auto-finalizing. It's purpose is for storage only. Rachel Murray APRN IMG FILM LIBRARY ORDERABLES [facility] [place] documented in this encounter Visit Diagnoses Not on filedocumented in this encounter
--- OUTSIDE RECORDS SUMMARY | 2024-11-29 10:58 | XMS_ITS | Encounter Summary ---
Author Organization [facility] [place] [address] Care Team Providers Care Cage Clerk Name Role Phone Rachel Murray APRN Primary Care Provider +1 -[phone] Reason for Referral * Consultation (Routine) - Authorized Specialty Diagnoses / Procedures Referred By Ana cavanaguh Referred To Contact Dermatology Diagnoses Pruritus, unspecified Rachel Murray APRN [address] [place] [address] [facility] Dermatology [address] [place] [address] Referral ID Status Reason Start Date Expiration Date Visits Requested Visits Authorized [id number] Authorized Consult, Test & Treat PCP Updated and/or Approved 4 03/04/2025 6 6 Encounter Details Date Type Department Care Team (Latest Contact Info) Description 09/22/2024 Transcribe Orders eDH Incoming Referrals [phone] Rachel Murray APRN [address] [place] [address] Pruritus, unspecified Social History Tobacco Use Types Packs/Day Years [...] 10:00 AM EDT Office Visit Dermatology at [facility] [address] [place] [address] Scheduled Referrals Name Type Priority Associated Diagnoses Orde r Schedule Referral to Dermatology Outpatient Referral Routine Pruritus, unspecified Ordered: 09/22/2024 documented as of this encounter Visit Diagnoses Diagnosis Pruritus, unspecified documented in this encounter Care Teams Cage Clerk Relationship Specialty Start Date End Date Rachel Murray APRN [address] [place] [address] PCP - General Family Medicine 09/22/24 documented as of this encounter
--- OUTSIDE RECORDS SUMMARY | 2024-11-29 10:58 | XMS_ITS | Encounter Summary ---
Author Organization [facility] Address [facility] [place] [address] Care Team Providers Care Director State Pharmacy Name Role Phone Rachel Murray AYO Primary Care Provider [phone] [phone] Encounter Details Date Type Department Care Team (Latest Contact Info) Description 07/03/2021 9:22 AM EDT - 07/03/2021 10:12 AM EDT Hospital [place] [address] Maureen Morrison MD [facility] [place] [address] Abnormal finding on breast imaging Discharge Disposition: Home Social History Tobacco Use Types Packs/Day Years Used Date Smoking Tobacco: Never Smokeless Tobacco: Never Sex and Gender Information Value Date Recorded Sex Assigned at Not on file Gender Identity Not on file Sexual Orientation Not on file documented as of this encounter Medications at Time of Discharge Medication Sig Dispensed Refills Start Date End Date polyethylene glycol (MIRALAX) 17 gram Powder in Packet Take 17 g by mouth daily. topiramate (TOPAMAX) 25 mg Capsule, Sprinkle Take 25 mg by mouth 2 times daily. gabapentin (NEURONTIN) 300 mg Capsule Take 300 mg by mouth 2 times daily. omeprazole (PRILOSEC) 40 mg Capsule, Delayed Release(E.C.) Take 40 mg by mouth daily. biotin 300 mcg Tablet Take by mouth. senna-docusate (PERICOLACE) 8.6-50 mg Tablet Take 1 tablet by mouth daily. ibuprofen (ADVIL;MOTRIN) 800 mg Tablet Take 800 mg by mouth every 6 hours as needed for Pain. lubiprostone (AMITIZA) 24 mcg Capsule Take 1 capsule by mouth daily. 30 capsule 11 08/18/2018 documented as of this encounter Progress Notes * Roland Alcantara MD - 07/02/2021 1:50 PM EDT Procedure date: July 03, 2021 Procedure type: Core needle biopsy of a left breast mass at the 1:00 radian and 3 cm from the nipple with ultrasound guidance Special Instructions: None Allergies: No Known Allergies Medications: Current Outpatient Medications: ??? polyethylene glycol (MIRALAX) 17 gram Powder in Packet, Take 17 g by mouth daily., Disp: , Rfl: ??? topiramate (TOPAMAX) 25 mg Capsule, Sprinkle, Take 25 mg by mouth 2 times daily., Disp: , Rfl: ??? gabapentin (NEURONTIN) 300 mg Capsule, Take 300 mg by mouth 2 times daily., Disp: , Rfl: ??? omeprazole (PRILOSEC) 40 mg Capsule, Delayed Release(E.C.), Take 40 mg by mouth daily., Disp: ,Rfl: ??? biotin 300 mcg Tablet, Take by mouth., Disp: , Rfl: ??? senna-docusate (PERICOLACE) 8.6-50 mg Tablet, Take 1 tablet by mouth daily., Disp: , Rfl: ??? ibuprofen (ADVIL;MOTRIN) 800 mg Tablet, Take 800 mg by mouth every 6 hours as needed for Pain.,Disp: , Rfl: ??? lubiprostone (AMITIZA) 24 mcg Capsule, Take 1 capsule by mouth daily., Disp: 30 capsule, Rfl: 11 Anticoagulation status: NSAIDS Imaging reviewed and procedural plan approved by Dr. Roland Alcantara MD documented in this encounter Plan of Treatment Upcoming Encounters Date Type Department Care Team (Late st Contact Info) Description 01/23/2025 10:00 AM EDT Office Visit Dermatology at [facility] [address] [place] [address] documented as of this encounter Procedures Procedure Name Priority Date/Time Associated Diagnosis Comments MAMMO US BIOPSY LEFT Routine 07/03/2021 10:12 AM EDT Abnormal finding on breast imaging SURGICAL PATHOLOGY REPORT Routine 07/03/2021 10:09 AM EDT SPECIMEN TO PATHOLOGY Routine 07/03/2021 10:09 AM EDT documented in this encounter Results * Mammo Us Biopsy Left (07/03/2021 10:12 AM EDT) Anatomical Region Laterality Modality Breast Left Mammography Impressions 07/06/2021 10:20 AM EDT Concordant benign result RECOMMENDATION: Routine annual screening. I phoned these results and recommendations to the patient on 07/06/2021 at 1020 hours. REVIEW PATH CONFERENCE?: No Preliminary report signed by: Roland Alcantara at 07/03/2021 10:35 AM I have personally reviewed the image(s) and the resident's interpretation and agree with the findings, Monika Bell MD at 07/06/2021 10:20 AM Thank you for letting us participate in the care of this patient. ??If you are a health care provider and have any questions regarding this report, please contact the number below. ??For patients who have questions please contact the health director of critical care that requested your imaging first. ? Narrative 07/06/2021 10:20 AM EDT LEFT BREAST ULTRASOUND GUIDED AUTOMATED CORE BIOPSY CLINICAL HISTORY: 46-year-old female who presents for ultrasound-guided biopsy of an indeterminate mass in the upper outer quadrant of the left breast. PROCEDURAL DETAILS: Informed consent was obtained. A timeout procedure was performed per protocol. Using local anesthetic (less than 10 cc of 1% lidocaine), sterile technique, and ultrasound guidance, the lesion in the left breast was localized and sampled. Three satisfactory core biopsy specimens were obtained using a 14-gauge automated device. A [place] Shar[place] 14G marker clip was placed. The clip was found to be immediately anterior and inferior to the target lesion to the target lesion position on ultrasound and follow-up craniocaudal and true lateral digital mammography. COMPLICATIONS: None PROCEDURAL ATTESTATION: Resident: Roland Alcantara M.D. I was present with the resident for the rodney component(s) of the procedure and otherwise remained immediately available for the duration of the procedure. I attest to having personally viewed the images/test and approve the above interpretation. IMAGING DIFFERENTIAL DIAGNOSIS: Fibroadenoma, complicated versus complex cyst, invasive ductal carcinoma PATHOLOGIC DIAGNOSIS: Fibroadenoma Maureen Morrison MD IMG MAMMO ORD ERABLES * Surgical Pathology Report (07/03/2021 10:09 AM EDT) Final Diagnosis [id number] ? Location: 3L The signing pathologist has (i) examined the relevant preparation(s) for the specimen(s) and (ii) rendered or confirmed the diagnosis(es). . ?Surgical Pathology DIAGNOSIS Needle biopsies: ?Left breast Diagnosis: ?Fibroadenoma Microcalcificati ons: ??N/A Electronically signed by: ?Jayshree Peters DO Verified: ??07/06/2021 9:13 ?? Pathologist Performed at: ??-[facility] Dept. of Pathology, [place], [place] SPECIMEN(S) SUBMITTED A - LEFT BREAST U/S BIOPSY, biopsy (3) CLINICAL INFORMATION Mass 1. IDC 2. Papilloma 3. Fibroadenoma SPECIMEN PROCESSING A - Labeled/Fixative : Left breast U/S biopsy, formalin. Quantity/Size: Four, 0.3-2.2 x 0.2 x 0.2 cm Tissue Description: Yellow-white fibrofatty needle core biopsies. Sections/Process ing: Entirely submitted in 2 cassettes labeled A1-A2. Ischemic Time: 4 minutes ??celeste 07/06/2021 9:13 AM EDT [facility] BREAST STRUCTURE / Unknown 07/03/2021 10:09 AM EDT 07/03/2021 10:09 AM EDT Monika Bell MD PATHOLOGY/CYTOLOGY ORDERABLES [facility] [place] [address] * Specimen to Pathology (07/03/2021 10:09 AM EDT) AP Specimen 07/03/2021 10:0 9 AM EDT 07/03/2021 10:09 AM EDT Narrative [facility] - 07/03/2021 10:09 AM EDT Specimen requisition ordered. ??Separate Pathology report to follow Monika Bell MD PATHOLOGY/CYTOLOGY ORDERABLES [facility] [place] [address] documented in this encounter Visit Diagnoses Diagnosis Abnormal finding on breast imaging Other (abnormal) findings on radiological examination of breast documented in this encounter Administered Medications Inactive Administered Medications - up to 3 most recent administrations Medication Order MAR Action Action Date Dose Rate Site lidocaine (Xylocaine) 1% (10 mg/mL) injection 10 mg 10 mg, Intradermal, ONCE, 1 dose, On Tue07/03/21 at 1030, Routine Given 07/03/2021 10:30 AM EDT 10 mg documented in this encounter Care Teams Director State Pharmacy Relationship Specialty Start Date End Date Rachel Murray APRN [address] [place] [address] PCP - General Family Medicine 07/12/18 09/21/24 documented as of this encounter
--- OUTSIDE RECORDS SUMMARY | 2024-11-29 10:58 | XMS_ITS | Encounter Summary ---
Author Organization [facility] Address [address] [place] [address] Care Team Providers Care Abstracter Name Role Phone Rachel Murray APRN Primary Care Provider [phone] [phone] Encounter Details Date Type Department Care Team (Latest Contact Info) Description 09/19/2015 Orders Only [facility] Gastroenterology - [facility] [address] [place] [address] Ravinder Keith MD BRBPR (bright red blood per rectum) (Primary Dx) Social History Tobacco Use Types Packs/Day Years Used Date Smoking Tobacco: Never Assessed Comments Unknown Sex and Gender Information Value Date Recorded Sex Assigned at Not on file Legal Sex Female 21:34 EDT Gender Identity Not on file Sexual Orientation Not on file documented as of this encounter Ordered Prescriptions Prescription Sig Dispense Quantity Refills Last Filled Start Date End Date polyethylene glycol (GOLYTELY) 236-22.74-6.74 -5.86 gram suspensionIndicat ions:BRBPR (bright red blood per rectum) Follow instructions on 'colonoscopy preparation instructions' sheet. 1 Bottle 0 09/19/2015 documented in this encounter Plan of Treatment Not on file documented as of this encounter Visit Diagnoses Diagnosis BRBPR (bright red blood per rectum)- Primary Hemorrhage of rectum and anus documented in this encounter Care Teams Abstracter Relationship Specialty Start Date End Date Rachel Murray APRN [address] [place] [address] PCP - General 09/10/15 documented as of this encounter
--- OUTSIDE RECORDS SUMMARY | 2024-11-29 10:58 | XMS_ITS | Encounter Summary ---
Author Organization [facility] [place] [address] Care Team Providers Care Knit Goods Washer Name Role Phone Unavailable Primary Care Provider Unavailabl e Encounter Details Date Type Department Care Team (Late st Contact Info) Description 07/31/2013 Ancillary Procedure Radiology Library at [facility] [place] [address] Rachel Murray APRN [address] [place] [address] Social History Tobacco Use Types Packs/Day Years [...] 10:00 AM EDT Office Visit Dermatology at [facility] [address] [place] [address] documented as of this encounter Procedures Procedure Name Priority Date/Time Associated Diagnosis Comments FILM LIBRARY STORAGE ONLY MAMMO Routine 07/31/2013 12:00 AM EDT documented in this encounter Results * Film Library- Storage Only Mammo (07/31/2013 12:00 AM EDT) Narrative YUDI - 06/30/2021 10:44 AM EDT This exam is auto-finalizing. It's purpose is for storage only. Rachel Murray APRN IMG FILM LIBRARY ORDERABLES YUDI [place] MA documented in this encounter Visit Diagnoses Not on filedocumented in this encounter
--- OUTSIDE RECORDS SUMMARY | 2024-11-29 10:58 | XMS_ITS | Encounter Summary ---
Author Organization [facility] [place] [address] Care Team Providers Care Certified Novell Engineer Name Role Phone Rachel Murray APRN Primary Care Provider [phone] [phone] Reason for Visit * (Routine) - Closed Specialty Diagnoses / Procedures Referred By Ana cavanaugh Referred To Contact Radiology Diagnoses Breast nodule Procedures Request for 2nd read Mammo Rachel Murray APRN [address] [place] [address] Referral ID Status Reason Start Date Expiration Date Visits Re quested Visits Authorized [id number] Closed 06/30/2021 06/30/2022 1 1 Encounter Details Date Type Department Care Team (Late st Contact Info) Description 06/30/2021 11:40 AM EDT Ancillary Procedure Radiology Library at [facility] [place] [address] Rachel Murray APRN [address] [place], [place] [id number] Breast nodule Social History Tobacco Use Types Packs/Day Years [...] Dermatology at [facility] [address] [place] [address] documented as of this encounter Procedures Procedure Name Priority Date/Time Associated Diagnosis Comments REQUEST FOR 2ND READ MAMMO Routine 06/30/2021 11:33 AM EDT Breast nodule documented in this encounter Results * Request for 2nd read Mammo (06/30/2021 11:33 AM EDT) Anatomical Region Laterality Modality SO Impressions 06/30/2021 12:13 PM EDT Indeterminant 1.4 cm circumscribed solid mass in the upper outer left breast at 1:00, 3 cm from the nipple. Imaging favors fibroadenoma; differential diagnosis includes circumscribed malignancy. RECOMMENDATION: Ultrasound-guided core needle biopsy of the left breast is recommended for further evaluation. Left: BI-RADS Category 4: Suspicious Finding - Biopsy Should Be Considered Right: BI-RADS Category 2: Benign Findings. Please note: The interpretation of the [facility] Breast Imaging Radiologist subspecialist may differ from the original radiologists interpretation. This is usually not due to a deficiency of the original interpreting radiologist, rather due to the greater skill level afforded by sub-specialization in the field and/or reasonable variations in interpretations. If you have a concern regarding the [facility] interpretation you may contact the D Breast Field Care Advocate Office at . Thank you for letting us participate in the care of this patient. ??If you are a health care provider and have any questions regarding this report, please contact the number below. ??For patients who have questions please contact the health health care marketing manager that requested your imaging first. ? Narrative 06/30/2021 12:13 PM EDT INTERPRETATION OF OUTSIDE BREAST IMAGING I have been asked to consult on this patient by Dr. Murray because he/she believes a review of this study may change or alter the care of this patient. STUDIES FROM: [place], [place] DATES and TYPE OF EXAM: Bilateral mammogram 06/09/2021, diagnostic left breast ultrasound 2020 CLINICAL HISTORY: Cat 4 Left breast nodule @1:00; Cat 4: ? BX; Sending Institution [facility]; Date of exam [id number]; I believe a reinterpretation of this exam may alter care of Patient. Yes; Left breast nodule @1:00; Cat 4: ? BX. ?? COMPARISONS: This is compared with prior images. FINDINGS: The breasts are heterogeneously dense which may obscure small masses. There are multiple, bilateral, circumscribed benign-appearing masses. Right: There are no suspicious calcifications, masses, or areas of distortion. The pattern is stable. Left: The left breast demonstrates a 1.4 cm circumscribed round to ovoid mass in the upper outer left breast at 1:00, 3 cm from the nipple by mammography. Ultrasound of the upper outer left breast, at 1:00, 1 cm from the nipple, demonstrates a 1.4 x 1.2 cm circumscribed, mildly lobulated, round to ovoid hypoechoic mass with suggestion of mild posterior enhancement; this mass was felt to corroborate with the mammographic finding. Procedure Note Maureen Morrison MD - 06/30/2021 INTERPRETATION OF OUTSIDE BREAST IMAGING I have been asked to consult on this patient by Dr. Murray becausehe/she believes a review of this study may change or alter the care of thispatient. STUDIES FROM: [place], [place] DATES and TYPE OF EXAM: Bilateral mammogram 06/09/2021, diagnostic leftbreast ultrasound 2020 CLINICAL HISTORY: Cat 4 Left breast nodule @1:00; Cat 4: ? BX; Sending Institution [facility]; Date of exam 20210609; Ibelieve a reinterpretation of this exam may alter care of Patient. Yes; Leftbreast nodule @1:00; Cat 4: ? BX. COMPARISONS: This is compared with prior images. FINDINGS: The breasts are heterogeneously dense which may obscure small masses.There are multiple, bilateral, circumscribed benign-appearing masses. Right: There are no suspicious calcifications, masses, or areas ofdistortion. The pattern is stable. Left: The left breast demonstrates a 1.4 cm circumscribed round to ovoidmass in the upper outer left breast at 1:00, 3 cm from the nipple by mammography. Ultrasound of the upper outer left breast, at 1:00, 1 cm from thenipple, demonstrates a 1.4 x 1.2 cm circumscribed, mildly lobulated, round toovoid hypoechoic mass with suggestion of mild posterior enhancement; this masswas felt to corroborate with the mammographic finding. IMPRESSION Indeterminant 1.4 cm circumscribed solid mass in the upper outer left breast at 1:00, 3 cm from the nipple. Imaging favors fibroadenoma; differential diagnosis includescircumscribed malignancy. RECOMMENDATION: Ultrasound-guided core needle biopsy of the left breastis recommended for further evaluation. Left: BI-RADS Category 4: Suspicious Finding - Biopsy Should BeConsidered Right: BI-RADS Category 2: Benign Findings. Please note: The interpretation of the [facility] BreastImaging Radiologist subspecialist may differ from the original radiologists interpretation. This is usually not due to a deficiency of the original interpreting radiologist, rather due to the greater skill level affordedby sub-specialization in the field and/or reasonable variations ininterpretations. If you have a concern regarding the [facility] interpretation you may contact the[facility] Breast Field Care Advocate Office at . Thank you for letting us participate in the care of this patient. If youare a health care provider and have any questions regarding this report,please contact the number below. For patients who have questions please contactthe health health care marketing manager that requested your imaging first. Electronically signed by: Maureen Morrison MD, [facility] ([phone]), at 06/30/2021 12:13 PM Rachel Murray APRN IMTammy OUTSIDE INTER PRETATION ORDERABLES documented in this encounter Visit Diagnoses Diagnosis Breast nodule Other (abnormal) findings on radiological examination of breast documented in this encounter Care Teams Certified Novell Engineer Relationship Specialty Start Date End Date Rachel Murray APRN [address] [place] [address] PCP - General Family Medicine 07/12/18 09/21/24 documented as of this encounter
--- OUTSIDE RECORDS SUMMARY | 2024-11-29 10:58 | XMS_ITS | Encounter Summary ---
Author Organization [facility] [place] [address] Care Team Providers Care Counselor Dormitory Name Role Phone Rachel Murray APRN Primary Care Provider [phone] [phone] Encounter Details Date Type Department Care Team (Late st Contact Info) Description 08/01/2018 Telephone Gastroenterology at [facility] [address] Leticia Lancaster Social History Tobacco Use Types Packs/Day Years Used Date Smoking Tobacco: Never Assessed Sex and Gender Information Value Date Recorded Sex Assigned at Not on file Gender Identity Not on file Sexual Orientation Not on file documented as of this encounter Miscellaneous Notes * Telephone Encounter - Leticia Lancaster - 08/01/2018 3:03 PM EDT Pt called in to schedule from referral. Booked apt and conf date and time with pt documented in this encounter Plan of Treatment Upcoming Encounters Date Type Department Care Team (Late st Contact Info) Description 01/23/2025 10:00 AM EDT Office Visit Dermatology at [facility] [address] [place] [address] documented as of this encounter Visit Diagnoses Not on filedocumented in this encounter Care Teams Counselor Dormitory Relationship Specialty Start Date End Date Rachel Murray APRN [address] [place] [address] PCP - General Family Medicine 07/12/18 09/21/24 documented as of this encounter
--- OUTSIDE RECORDS SUMMARY | 2024-11-29 10:58 | XMS_ITS | Clinical Summary ---
Author Organization [facility] Address [facility] [place] [address] Care Team Providers Care Manufacturing Clerk Name Role Phone Rachel Murray APRN Primary Care Provider [phone] [phone] Allergies No known active allergies Medications Medication Sig Dispensed Refills Start Date End Date Status polyethylene glycol (MIRALAX) 17 gram Powder in Packet Take 17 g by mouth daily. Active topiramate (TOPAMAX) 25 mg Capsule, Sprinkle Take 25 mg by mouth 2 times daily. Active gabapentin (NEURONTIN) 300 mg Capsule Take 300 mg by mouth 2 times daily. Active omeprazole (PRILOSEC) 40 mg Capsule, Delayed Release(E.C.) Take 40 mg by mouth daily. Active biotin 300 mcg Tablet Take by mouth. Active senna-docusate (PERICOLACE) 8.6-50 mg Tablet Take 1 tablet by mouth daily. Active ibuprofen (ADVIL;MOTRIN) 800 mg Tablet Take 800 mg by mouth every 6 hours as needed for Pain. Active lubiprostone (AMITIZA) 24 mcg Capsule Take 1 capsule by mouth daily. 30 capsule 11 08/18/2018 Active Encounters Date Type Department Care Team Description 09/22/2024 Transcribe Orders eDH Incoming Referrals [phone] Rachel Murray APRN Pruritus, unspecified from Last 3 Months Social History Tobacco Use Types Packs/Day Years Used Date Smoking Tobacco: Never Smokeless Tobacco: Never Sex and Gender Information Value Date Recorded Sex Assigned at Not on file Gender Identity Not on file Sexual Orientation Not on file Last Filed Vital Signs Vital Sign Reading Time Taken Comments Blood Pressure 119/71 08/18/2018 2:04 PM EDT Pulse 79 08/18/2018 2:04 PM EDT Temperature - - Respiratory Rate - - Oxygen Saturation - - Inhaled Oxygen Concentration - - Weight 77.6 kg (171 lb 1.6 oz) 08/18/2018 2:04 P M EDT Height 163.2 cm (5' 4.25) 08/18/2018 2:04 PM ED T Body Mass Index 29.14 08/18/2018 2:04 PM EDT Plan of Treatment Upcoming Encounters Date Type Department Care Team (Late st Contact Info) Description 01/23/2025 10:00 AM EDT Office Visit Dermatology at [facility] [address] [place] [address] Health Maintenance Due Date Last Done Comments CT Colonography 1974 Colonoscopy 1974 Colorectal Cancer Screening 1974 FIT DNA 1974 FIT 1974 Sigmoidoscopy (10 year) with FIT yearly 1974 Sigmoidoscopy 1974 HIV screen 02/04/1992 Hepatitis C Screening 02/04/1992 Hepatitis B vaccine (0-59 yrs) (1) 1993 Tetanus/Diphtheria/Pertussis Vaccines (1 - Tdap) 02/03 HPV test 02/04/2004 PAP Smear 02/04/2004 Breast Cancer Share Decision Needed 2014 Breast Cancer screening 2014 Pneumoccocal Vaccine: 50+ (1 of 1 - PCV) 02/04/2024 Zoster vaccine (1 of 2) 02/04/2024 Covid-19 Vaccine (2 - season) 2024 Influenza (Flu) vaccine (1 o f 1 - Influenza standard series) 06/17/2024 Medical Devices Implanted Type Area Health Promotion Coordinator Device Identifier Shelf Expiration Date Model / Serial / Lot Breast Clip-07/03/2021 Implanted:Qty: 1 on 07/03/2021 by Monika Bell MD Breast Clip Left: Breast Bard - 0614 [id number] / / [id number] Description:SENOMARK ULTRACO R BREAST TISSUE MARKER QUIN Care Teams Manufacturing Clerk Relationship Specialty Start Date End Date Rachel Murray APRN [address] [place], [place] [id number] PCP - General Family Medicine 09/22/24
--- OUTSIDE RECORDS SUMMARY | 2024-11-29 10:58 | XMS_ITS | Encounter Summary ---
Author Organization [facility] Address [address] [place] [address] Care Team Providers Care Industrial Machine Operator Name Role Phone Unknown, Provider MD Primary Care Provider Unava ilable Encounter Details Date Type Department Care Team (Late st Contact Info) Description 06/22/2013 Results Only [facility] [phone] Viola Estrada, DO [address] [place] [address] Social History Tobacco Use Types Packs/Day Years [...] Priority Date/Time Associated Diagnosis Comments SURGICAL PATHOLOGY Routine 06/22/2013 21 :35 EDT documented in this encounter Results * SURGICAL PATHOLOGY (06/22/2013 21:35 EDT) Pathology Report: SURGICAL PATHOLOGY REPORT Reports generated via electronic interface contain original data; however they are lacking the format of the original report. Caution should be taken when reading/interpretin g unformatted reports. Name: ? CATA GRIGGS ? Accession #: ? [id number] ? : ? 1975 (Age: 38) ??F ? Collect Date: ? 06/22/2013 ? Location: ? [facility] ? Receive Date: ? 06/22/2013 ? Provider: VIOLA ESTRADA DO Copy to: MARCO ANTONIO TREVINO LOCKSTITCH BACK MAKER ? Final Pathologic Diagnosis: A. STOMACH, ANTRUM, BIOPSY: - ??Antral- type mucosa with mild chronic gastritis and superimposed reactive changes. - ??No Helicobacter pylori-like microorganisms identified on H+E stained sections. B. GASTROESOPHAGEAL JUNCTION, BIOPSY: - ??Squamocolumnar junctional mucosa with chronic inflammation and reactive changes. - ??No intestinal metaplasia identified. Document reviewed and electronically signed by: CAROLANN JIMENEZ MD Report ??Date: 06/26/2013 09:26 By the signature above, the attending physician certifies that he/she has personally conducted a gross and/or microscopic examination of the described specimens and rendered or confirmed the above diagnosis. Specimen(s) Received: A. ??Gastric antrum (#1) B. ??GE junction (#2) Clinical History: GERD Gross Description: A. ?Received in formalin labelled with proper patient identification (initials L, H) and 1. gastric antrum is a single pink-tiwari tissue fragment (0.3 x 0.2 x 0.2 cm). Submitted intact in A1. B. ?Received in formalin labelled with proper patient identification (initials L, H) and 2. GE junction are three pink-tiwari tissues (0.3 x 0.2 x 0.2 cm to 0.4 x 0.3 x 0.2 cm). Entirely submitted in B1. Dr. Gaston 06/23/2013 10:06 AM End of Report ANN BRYANT 06/22/2013 21:3 5 EDT 06/22/2013 21:35 EDT us Viola Estrada DO PATHOLOGY ORDERABLES Final Res ult Performing Organization Address City/State/[facility] Co de Phone Number [facility] [address] [place] [address] documented in this encounter Visit Diagnoses Not on filedocumented in this encounter Care Teams Industrial Machine Operator Relationship Specialty Start Date End Date Unknown, Provider, PCP - General 06/22/13 09/09/15 documented as of this encounter
--- OUTSIDE RECORDS SUMMARY | 2024-11-29 10:58 | XMS_ITS | Encounter Summary ---
Author Organization [facility] Address [address] [place] [address] Care Team Providers Care Molding Line Assistant Name Role Phone Rachel Murray AYO Primary Care Provider [phone] Encounter Details Date Type Department Care Team (Latest Contact Info) Description 11/24/2015 11:14 EST - 11/24/2015 14:18 EST Hospital Encounter [facility] Endoscopy Outpatient [address] [place] [address] Ravinder Keith MD Discharge Disposition: Home or [...] Sign Reading Time Taken Comments Blood Pressure 108/81 11/24/2015 1411 EST Pulse - - Temperature 36.1 ??C (97 ??F) 11/24/2015 1343 EST Respiratory Rate 16 11/24/2015 1400 EST Oxygen Saturation 98% 11/24/2015 1411 EST Inhaled Oxygen Concentration - - Weight 80.3 kg (177 lb) 11/24/2015 1158 EST Height 162.6 cm (5' 4) 11/24/2015 1158 EST Body Mass Index 30.38 11/24/2015 1158 EST documented in this encounter Medications at Time of Discharge [...] or Self Care documented in this encounter H&P Notes * Ravinder Keith MD - 11/24/2015 1308 EST Endoscopy Sedation for Procedure History & Physical Date: 11/24/2015 Time: 13:08 Location: [address] Planned Procedure: Colonoscopy, Gastroscopy Chief Complaint/Indications for Procedure: GERD and constipation. History Previous Complication with Sedation and/or Anesthesia? No Allergies: Not on File Current Medications: Current Outpatient Prescriptions Medication Sig Dispense Refill ??? omeprazole (PRILOSEC) 20 mg capsule Take 20 mg by mouth daily ??? polyethylene glycol (GOLYTELY) 236-22.74-6.74 -5.86 gram suspension Follow instructions on 'colonoscopy preparation instructions' sheet. 1 Bottle 0 Current Facility-Administered Medications Medication Route Frequency ??? fentaNYL citrate (PF) 50 mcg/mL injection 100-250 mcg intravenous Once PRN ??? fentaNYL citrate (PF) 50 mcg/mL injection 100-250 mcg intravenous Once PRN ??? flumazenil (ROMAZICON) injection 0.2 mg intravenous PRN ??? flumazenil (ROMAZICON) injection 0.2 mg intravenous PRN ??? lactated ringers (LR) infusion intravenous CONTINUOUS ??? lactated ringers (LR) infusion intravenous CONTINUOUS ??? meperidine (PF) (DEMEROL) 100 mg/mL injection 25-200 mg intravenous Once PRN ??? meperidine (PF) (DEMEROL) 100 mg/mL injection 25-200 mg intravenous Once PRN ??? midazolam (PF) (VERSED) 1 mg/mL injection 1-10 mg intravenous Once PRN ??? midazolam (PF) (VERSED) 1 mg/mL injection 1-10 mg intravenous Once PRN ??? nalOXone (NARCAN) injection 0.4 mg intravenous PRN ??? nalOXone (NARCAN) injection 0.4 mg intravenous PRN ??? ondansetron (PF) (ZOFRAN) injection 2-4 mg intravenous PRN ??? ondansetron (PF) (ZOFRAN) injection 2-4 mg intravenous PRN Past Medical History: Past Medical History Diagnosis Date ??? GERD (gastroesophageal reflux disease) Social History: History reviewed. No pertinent past surgical history. History Substance Use Topics ??? Smoking status: Never Smoker ??? Smokeless tobacco: Not on file ??? Alcohol Use: No Family History: History reviewed. No pertinent family history. Review of Systems as pertinent: Physical Exam Vital Signs: BP 99/72 mmHg Temp(Src) 36.1 ??C (97 ??F) (Tympanic) Resp 15 Ht 162.6 cm (64) Wt 80.287 kg (177 lb) BMI 30.37 kg/m2 SpO2 99% Heart Examination: Cardiac Regularity: Regular Respiratory Examination: Respiratory Pattern: Regular Breath Sounds Right: Clear Breath Sounds Left: Clear Abdominal Examination: Not clinically indicated Additional physical exam related to the proposed procedure, patient activity, disease state and treatment as pertinent: Assessment Previous complications with sedation or anesthesia?: No Airway Concerns: None Anesthesia Classification: ASA 2 Plan: Proceed with sedation for procedure Fasting Time: Time of last liquid intake: 744 Date of Last Liquid Intake: 11/24/15 Time of last solid intake: 1999 Date of last solid intake: 11/22/15 Patient Appropriate Candidate for Planned Sedation?: Yes Ravinder Keith MD 11/24/2015 13:08 documented in this encounter Plan of Treatment Not on file documented as of this encounter Procedures Procedure Name Priority Date/Time Associated Diagnosis Comments PROCEDURE REPORTS - SCANNED 11/25/2015 0:35 EST PROCEDURE REPORTS - SCANNED 11/25/2015 0:35 EST documented in this encounter Results * PROCEDURE REPORTS - SCANNED (11/25/2015 0:35 EST) 11/25/2015 0:35 EST us Scan 2 Environmental Health Manager PROCEDURE/MINOR SURGICAL OR DERABLES Final Result * PROCEDURE REPORTS - SCANNED (11/25/2015 0:35 EST) 11/25/2015 0:35 EST us Scan 2 Environmental Health Manager PROCEDURE/MINOR SURGICAL OR DERABLES Final Result documented in this encounter Visit Diagnoses Not on filedocumented in this encounter Administered Medications Inactive Administered Medications - up to 3 most recent administrations Medication Order MAR Action Action Date Dose Rate Site meperidine (PF) (DEMEROL) 100 mg/mL injection 25-200 mg 25-200 mg, intravenous, ONCE PRN, 1 dose, Starting on Tue11/24/15 at 1152, Until Tue11/24/15 at 1336, Other, sedation, Routine, Intraprocedure Given 11/24/2015 13:36 EST 125 mg midazolam (PF) (VERSED) 1 mg/mL injection 1-10 mg 1-10 mg, intravenous, ONCE PRN, 1 dose, Starting on Tue11/24/15 at 1152, Until Tue11/24/15 at 1336, Sedation, Routine, Intraprocedure Given 11/24/2015 13:36 EST 5 mg documented in this encounter Historical Medications * This list may reflect changes made after this encounter. omeprazole (PRILOSEC) 20 mg capsuleIndications :gastroesophageal reflux disease Take 20 mg by mouth daily added in this encounter Orders Medications Ordered That Zia ht Not Have Been Administered Count Last Ordered Date First Ordered Date fentaNYL citrate (PF) 50 mcg /mL injection 100-250 mcg 2 11/24/2015 flumazenil (ROMAZICON) injection 0.2 mg 2 0 11/24/2015 lactated ringers (LR) infusion 2 11/24/2015 meperidine (PF) (DEMEROL) 10 0 mg/mL injection 25-200 mg 1 11/24/2015 midazolam (PF) (VERSED) 1 mg /mL injection 1-10 mg 1 11/24/2015 nalOXone (NARCAN) injection 0.4 mg 2 2015 ondansetron (PF) (ZOFRAN) injection 2-4 mg 2 11/24/2015 Transfer Count Last Ordered Date First Orde red Date NOTIFY PPS OF DISCHARGE COMPLETE 1 11/24/19 16 Discharge Count Last Ordered Date First Orde red Date DISCHARGE PATIENT 1 11/24/2015 documented in this encounter Care Teams Molding Line Assistant Relationship Specialty Start Date End Date Rachel Murray APRN [address] [facility] [address] [place] [address] PCP - General 09/10/15 documented as of this encounter
--- OUTSIDE RECORDS SUMMARY | 2024-11-29 10:58 | XMS_ITS | Encounter Summary ---
Author Organization [facility] Address [facility] [place] [address] Care Team Providers Care Top Printing Press Operator Name Role Phone Rachel Murray APRN Primary Care Provider [phone] Reason for Visit * Consultation (Routine) - Closed Specialty Diagnoses / Procedures Referred By Ana cavanaugh Referred To Contact Gastroenterology Diagnoses irritable bowel, predominantly constipation Rachel Murray APRN [address] [place] [address] [facility] [address] [place] [address] Referral ID Status Reason Start Date Expiration Date V isits Requested Visits Authorized [id number] Closed Consult, Test & Treat Connection [facility] 07/12/2018 07/12/2019 1 1 Encounter Details Date Type Department Care Team (Late st Contact Info) Description 08/18/2018 2:00 PM EDT Office [place] [address] Anne Vaughan, BELT AND LINK SHOP SUPERVISOR [address] [facility] [place], [place] [id number] Constipation, unspecified constipation type; Lower abdominal pain; Gastroesophageal reflux disease, esophagitis presence not specified Social History Tobacco Use Types [...] Mass Index 29.14 08/18/2018 2:04 PM EDT documented in this encounter Patient Instructions * Patient Instructions* RaquelAnne abrams, BELT AND LINK SHOP SUPERVISOR - 08/18/2018 2:00 PM EDT 1. We can use a bottle of Golytely, which is our colonoscopy clean-out kit. Or, you may mix one small bottle of miralax (238ml or 1 cup) in one gallon of an electrolyte beverage (your preference- I am told Gatorade is the best). Drink until you are no longer passing chunks of stool. You will know the clean-out is successful when you have finished passing chunks of stool. Most people report feeling sport shoe spike assembler or an improvement in symptoms following the clean-out. Most people only need 1/2-1 gallon of prep, but occasionally I meet someone who needs a second clean-out. Please let me know if you do not pass chunks of stool or continue to experience symptoms immediately following the clean-out. We can determine whether we need to do an abdominal x-ray or if we should extend the clean-out. Most people do not feel like eating during a clean-out. If you happen to get hungry during this process please eat lightly. 2. Labs today in 3L 3. Stool studies at your convenience. Please send me a message if you don't hear from me within 2 weeks. 4. After the clean-out; amitiza 24mcg with dinner. MAKE SURE YOU TAKE WITH FOOD 5. Squatty potty/foot stool 6. Enteric coated peppermint oil four times daily as needed for abdominal pain (Pepogest) 7. Avoid non-steroidal anti-inflammatory medications (NSAIDs) including but not limited to Advil, ibuprofen, Motrin, Aleve, Excedrin, naproxen, Mobic, indomethacin, and aspirin. Acetaminophen (Tylenol) is okay for aches and pains. 8. Continue omeprazole 40mg once daily 30-60 minutes prior to eating first meal of the day 9. Follow up 4-6 weeks if needed Think about pelvic floor physical therapy versus testing. documented in this encounter Progress Notes * Anne Vaughan APRN - 08/18/2018 2:00 PM EDT FISHING TACKLE REPAIRER: Anne Vaughan APRN PCP: Rachel Murray APRN REQUESTING PROVIDER: Rachel Murray APRN REASON FOR CONSULTATION This is a 43 y.o. female with a history significant for constipation. I am seeing her as a new patient today in consult for IBS. GI PROBLEM LIST 1. CONSTIPATION --COLONOSCOPY 11/24/15 ([facility]); normal --EGD 11/24/15 ([facility]); normal HPI COMMENTS Chronic constipation. Long history- my whole entire adulthood. I don't remember not having constipation. Senna-S. Miralax. Fiber choice. Will produce small rabbit pellets or cow yazmin explosion. Difficulty emptying. Extreme abdominal pain. Tried the FODMAP diet. Has eliminated gluten from her diet. Will experience extreme nausea, abdominal pain, shortness of breath, fatigue. Has not been tested for celiac disease. Abdominal distension. Has started to have more regular bowel movements since she stopped eating gluten. Denies diarrhea. Post-prandial nausea has improved since she stopped eating gluten. Denies vomiting. No anemia. Ibuprofen twice a day for neck pain for chronic whiplash. Diminished appetite. Snacking foods. Early satiety. Bloating and gas. Has been taking PPI for approximately 9 years. She has unsuccessfully tried to taper off PPI in thepast. She showed me a picture (looks 3rd trimester). Abdominal pain has improved. If she does not take any laxatives may go over one week without movingher bowel. Denies urinary symptoms or dyspareunia. Weight loss. Denies dysphagia, odynophagia, and globus. Takes omeprazole 40mg once daily. Has reflux symptoms approximately twice a week. She takes the omeprazole at bedtime. Has not been tested for celiac. Has had a blood work up. was told it isn't my thyroid. 2 vaginal deliveries. Had normal EGD and colonoscopy in 2016. Had a negative abdominal ultrasound. ROS Notable for the gastrointestinal symptoms as described above. CONSTITUTIONAL: Denies anorexia, fever, or unintended weight change EYES: Denies red or painful eyes ENT: Denies oral ulcers, dysphagia, odynophagia, globus. RESPIRATORY: Denies cough, shortness of breath, wheezing CV: Denies palpitations, chest pain. : Denies dysuria, urinary incontinence, or dyspareunia. MUSC/SKELETAL: See HPI. INTEGUMENTARY: Finger rash. Denies recent skin rash or lesions. NEURO: Migraines. Denies neuropathy, loss of sensation, facial drooping or unilateral weakness. PSYCH: Denies psychiatric problems. ENDO: Denies frequent urination and excessive hunger or thirst. HEM/LYMPH: Denies easy bleeding or bruising. ALL/IMMUNO: Denies seasonal allergies, frequent colds. ALLERGIES No Known Allergies CURRENT MEDICATIONS Medications reviewed and reconciled in e-DH Current Outpatient Medications: ??? 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 HABITS Denies tobacco use. Occasional alcohol use. Denies using other substances. FAMILY HISTORY Niece- wheat allergies. Denies family history of celiac disease, esophageal cancer, stomach cancer, colon cancer, pancreatic or liver issues, and IBD. PHYSICAL EXAM: Most Recent Vitals: 08/18/18 1404 BP: 119/71 Pulse: 79 Height: Height: 163.2 cm (5' 4.25) Weight: Weight: 77.6 kg (171 lb 1.6 oz) Body mass index is 29.14 kg/m??. GENERAL: Healthy-appearing in no acute distress. Appears stated age. Well nourished. SKIN: No lesions, rashes, lumps, or angiomas on exposed skin. NECK: No adenopathy. No thyromegaly. HEENT: PERRL, EOMI, mucosa clear without ulceration or lesions, normal Dentition LUNGS: Clear to auscultation bilaterally COR: Regular, normal S1 and S2 without murmurs. ABD: Tympanic. Tenderness deep palpation all quadrants. No rebound or guarding. Normal active BS. Soft, non-distended. No bruits. No organomegaly. EXT: No cyanosis, clubbing, or edema. NEURO: Alert and oriented to person, place, time, and situation. Cranial nerves II-XII intact. PSYCH: Mood appropriate. Good eye contact. Normal interaction. Answers all questions appropriately. LABS: ASSESSMENT 1. CONSTIPATION She does not meet COURTNEY IV criteria for IBS. She had a normal colonoscopy in 2016. There seems to gisella pelvic floor component to her symptoms. We discussed the utility of MR defecography and HRAM. We discussed the utility of pelvic floor physical therapy. She wishes to defer at this time. Recommend squatty potty/foot stool. Recommend amitiza. We reviewed medication indications, administration, andside effects. Consider utility of Sitz Ricardo study. Recommend KUB. She declined. She is agreeable todoing a clean-out. We reviewed this process. She has been following low-FODMAP diet. Consider utility of HBT. Will obtain fecal calprotectin to screen for inflammatory etiology. Recommend CRP, TTG/IgA, IgA today Ddx: IBD, IBS, celiac disease, pelvic floor dysfunction/dyssynergia, CIC, colonic inertia 2. ABDOMINAL PAIN See above plan. Consider role of constipation. Recommend enteric coated peppermint oil. We reviewedmedication indications, administration, and side effects. Consider utility of CT/CTE/CTA. Ddx: IBD, obstructive etiology, celiac disease, IBS, biliary etiology, SIBO/dysbiosis 3. JUAN Patient reports typical reflux symptoms. Had an EGD in 2016. Has been taking omeprazole once daily without regard to food. We reviewed medication indications, administration, and side effects. Patient admits to chronic NSAID use. We reviewed adverse effects of NSAIDs on the GI tract including erosions, ulcers, and GI bleeds. Recommend follow up with PCP for pain management. Consider utility of Impedence pH on medications. Consider utility of HREM. Consider utility of repeat EGD. Ddx: GERD, gastritis/gastropathy, PUD, EoE, visceral hypersensitivity, NERD, bile acid reflux PLAN 1. Golytely clean-out 2. TTG/IgA, IgA, CRP today 3. Fecal calprotectin. External orders provided 4. Amitiza 24mcg once daily with food. 5. Squatty potty/foot stool 6. Enteric coated peppermint oil four times daily as needed for abdominal pain (Pepogest) 7. Stop NSAIDs. Follow up with PCP about pain management. 8. Continue omeprazole 40mg once daily 30-60 minutes prior to eating first meal of the day 9. Follow up 4-6 weeks if needed I have provided her with my contact information. She has been encouraged to contact me with any questions or concerns. TIME SPENT WITH PATIENT 56 minutes of this 60 minute visit were spent in [id number] discussion and counseling the patientas detailed per above. Signed, Anne Vaughan APRN 08/21/18 11:33 AM Section of Gastroenterology & Hepatology [facility] documented in this encounter Plan of Treatment Upcoming Encounters Date Type Department Care Team (Late st Contact Info) Description 01/23/2025 10:00 AM EDT Office Visit Dermatology at [facility] [address] [place] [address] documented as of this encounter Procedures Procedure Name Priority Date/Time Associated Diagnosis Comments CRP, ACUTE INFLAMMATION Routine 08/18/2018 3:20 PM EDT Constipation, unspecified constipation type Lower abdominal pain TISSUE TRANSGLUTAMINASE, IGA Routine 08/18/2018 3:20 PM EDT Constipation, unspecified constipation type Lower abdominal pain IGA Routine 08/18/2018 3:20 PM EDT Constipation, unspecified constipation type Lower abdominal pain documented in this encounter Results * CRP, acute inflammation (08/18/2018 3:20 PM EDT) C-Reactive Protein 1.5 <=4.9 mg/L [facility] Blood specimen (specimen) 08/18/2018 3:20 PM EDT 08/18/2018 3:26 PM EDT Narrative Resulting Agency Comment Spec In Lab Anne Vaughan APRN CHEMISTRY ORDERA BLES Performing Organization Address [facility] Co de Phone Number [facility] [place] [address] * IgA (08/18/2018 3:20 PM EDT) IgA 267 70 - 400 mg/dL [facility] Blood specimen (specimen) 08/18/2018 3:20 PM EDT 08/18/2018 3:26 PM EDT Narrative Resulting Agency Comment Spec In Lab Anne Vaughan APRN CHEMISTRY ORDERA BLES Performing Organization Address [facility] Co de Phone Number [facility] [place] [address] * Tissue transglutaminase, IgA (08/18/2018 3:20 PM EDT) TTG IgA Ab <1.2 <4.0 (Negative) unit/mL [facility] Comment: Test Performed by: [facility] - [address] [address] Blood specimen (specimen) 08/18/2018 3:20 PM EDT 08/21/2018 8:39 AM EST Narrative Resulting Agency Comment Spec In Lab Anne Vaughan APRN IMMUNOLOGY ORDER KIERSTEN Performing Organization Address City/[facility]/ZIP [place] [address] documented in this encounter Visit Diagnoses Diagnosis Constipation, unspecified constipation type Lower abdominal pain Abdominal pain, other specified site Gastroesophageal reflux disease, esophagitis presence not specified documented in this encounter Care Teams Top Printing Press Operator Relationship Specialty Start Date End Date Rachel Murray APRN [address] [place] [address] PCP - General Family Medicine 07/12/18 09/21/24 documented as of this encounter
--- OUTSIDE RECORDS SUMMARY | 2024-11-29 10:58 | XMS_ITS | Encounter Summary ---
Author Organization [facility] Address [facility] [place] [address] Care Team Providers Care Linseed Oil Press Tender Name Role Phone Rachel Murray AYO Primary Care Provider [phone] Encounter Details Date Type Department Care Team (Latest Contact Info) Description 07/03/2021 10:13 AM EDT - 07/03/2021 11:59 PM EDT Hospital [place] [address] Maureen Morrison MD [facility] [address] [place] [address] Abnormal finding on breast imaging Discharge Disposition: [...] 11 08/18/2018 documented as of this encounter Plan of Treatment Upcoming Encounters Date Type Department Care Team (Late st Contact Info) Description 01/23/2025 10:00 AM EDT Office Visit Dermatology at [facility] [address] [place] [address] documented as of this encounter Procedures Procedure Name Priority Date/Time Associated Diagnosis Comments MAMMO DIAGNOSTIC WITHOUT CAD LEFT Routine 07/03/2021 10:23 AM EDT Abnormal finding on breast imaging documented in this encounter Results * Mammo Diagnostic Without Cad Left (07/03/2021 10:23 AM EDT) Anatomical Region Laterality Modality Breast [...] who have questions please contact the health critical care clinical nurse specialist that requested your imaging first. ? Electronically signed by: Monika Bell MD, [facility] ([phone]), at 07/06/2021 10:20 AM Narrative 07/06/2021 10:20 AM EDT LEFT BREAST [...] obtained using a 14-gauge automated device. A InfraSearch 14G marker clip was placed. The clip [...] Maureen Morrison MD IMG MAMMO ORD ERABLES documented in this encounter Visit Diagnoses Diagnosis Abnormal finding on breast imaging Other (abnormal) findings on radiological examination of breast documented in this encounter Care Teams Linseed Oil Press Tender Relationship Specialty Start Date End Date Rachel Murray APRN [address] [place] [address] PCP - General Family Medicine 07/12/18 09/21/24 documented as of this encounter
--- OUTSIDE RECORDS SUMMARY | 2024-11-29 10:58 | XMS_ITS | Encounter Summary ---
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 Encounter Details Date Type Department Care Team (Late st Contact Info) Description 11/21/2015 Telephone Vascular Surgery and Endovascular Therapy - [facility] [address], [place] [id number] Ravinder Keith MD Advice Only (WHEN TO START HER COLO PREP?) Social History Tobacco Use Types Packs/Day Years Used Date Smoking Tobacco: Never Assessed Comments Unknown Sex and Gender Information Value Date Recorded Sex Assigned at Not on file Legal Sex Female 21:34 EDT Gender Identity Not on file Sexual Orientation Not on file documented as of this encounter Miscellaneous Notes * Telephone Encounter - Bessy Caballero RN - 11/21/2015 1021 EST Discussed Colonoscopy/EGD prep in detail with patient. All questions answered. Patient verbalized understanding. * Telephone Encounter - Yumiko Milligan - 11/21/2015 0932 EST The patient called and stated that she had to change her colo, and endo appointments from when her instructions were sent to her. She stated that she needs to know if she needs to start the prep at adifferent time then was originally given to her. The patient can be reached at [phone]. documented in this encounter Plan of Treatment Not on file documented as of this encounter Visit Diagnoses Not on filedocumented in this encounter Care Teams Fuel Tank Sealer And Tester Relationship Specialty Start Date End Date Rachel Murray APRN [address] [place] [id number] PCP - General 09/10/15 documented as of this encounter
== END 2024-11-29 10:56 | disposition home or self-care (01) ==
LOC: LBO 10:55
PROVIDERS: PCP Nurse Practitioner Family; Visit Provider Nurse Practitioner Family
DX: R94.5 Abnormal results of liver function studies (principal)
CPT/HCPCS: 36415; 80053

== ENCOUNTER 2025-01-02 08:17 | Outpatient (CLI) | payer BC, SELFPAY ==
--- NOTE | 2025-01-02 | DI.MAMMO_ITS ---
Exam(s) MAMMO SCREENING EXAM: MAMMO SCREENING CLINICAL HISTORY: Screening, Z12.31 TECHNIQUE: Mammograms were interpreted according to the usual protocol including computer analysis w LineHop CAD system, tomosynthesis and C-view imaging. COMPARISON: No exams were available for comparison FINDINGS: The breasts are composed of scattered fibroglandular densities, Breast Density category B. No suspicious masses or suspicious microcalcifications are seen. Stable circumscribed nodule with bi opsy marker clip in the anterior left breast. No skin thickening or abnormal axillary lymph nodes are seen. There has been no significant change from prior exams. IMPRESSION: BI-RADS Category 2 - Benign Findings Yearly screening mammography is recommended. Breast Density - Category B, scattered fibroglandular densities. A negative radiographic report should not delay biopsy if a dominant or clinically suspicious mass is present. Up to ten percent of cancers are not identified on mammography. A negative report may reinforce clinical impression. Adenosis and dense breasts may obscure an underlying neoplasm. False positive reports average 6 to 10%. Patient will receive a letter notifying them of these results.
== END 2025-01-02 08:37 ==
LOC: DI 08:17
PROVIDERS: PCP Nurse Practitioner Family; Visit Provider Nurse Practitioner Family
DX: Z12.31 Encounter for screening mammogram for malignant neoplasm of breast (principal); R92.323 Mammographic fibroglandular density, bilateral breasts; D24.2 Benign neoplasm of left breast
CPT/HCPCS: 77063; 77067

== ENCOUNTER 2025-01-16 06:01 | Day surgery (SDC) | payer BC, SELFPAY ==
[2025-01-16] VITALS (21 sets, daily range): BP systolic 85–141; BP diastolic 49–90; PULSE 65–82; RESP 10–17; TEMP 36.3–36.7; O2SAT 92–97; BMI 33.6
--- NOTE | 2025-01-16 06:18 | W.ANESPRE ---
General Info Date of Service Date Performed: 01/16/25 Height: 5 ft 4 in Weight: 88.904 kg Body Mass Index (BMI): 33.6 Surgical Procedure: Operation Date: 01/16/25 07:50 Proposed Procedure Side Surgeon p Hip Total Hip Anterior Right Adiel Christine MD Meds Allergies and Home Medications Allergies Allergy/AdvReac Type Severity Reaction Status Date / Time No Known Allergies Allergy Verified 01/16/25 06:54 Home Medication ?Medication ?Instructions ?Recorded multivitamin (Daily Multi-Vitamin 1 ea PO DAILY 02/09/13 tablet) fluticasone propionate 50 1 spray intranasal BID 03/23/21 mcg/actuation nasal spray,suspension albuterol sulfate 90 mcg/actuation 2 puff inhalation Q6H PRN 10/26/21 aerosol inhaler polyethylene glycol 3350 17 17 g PO DAILY 05/19/22 gram/dose oral powder (Miralax) bupropion HCl 100 mg tablet,12 hr 200 mg PO DAILY 04/21/23 sustained-release (Wellbutrin SR) esomeprazole magnesium 40 mg 40 mg PO DAILY 04/21/23 capsule,delayed release (Nexium) Bacillus coagulans 10 billion cell 10 cell PO DAILY 05/10/23 capsule,delayed release (Probiotic (B. coagulans)) vitamin B complex 1 tab PO DAILY 05/10/23 prochlorperazine maleate 5 mg See Rx Instructions PO TID PRN 06/01/23 tablet headaches #30 tabs paroxetine HCl 10 mg tablet (Paxil) 10 mg PO DAILY 06/28/23 fremanezumab-vfrm 225 mg/1.5 mL 225 mg (1.5 mL) subcut QMONTH #1.5 02/08/24 subcutaneous auto-injector (Ajovy) mL acetylcysteine 600 mg capsule (NAC) 600 mg PO DAILY 06/05/24 calcium carbonate (Tums) 200 mg PO BID PRN 06/26/24 famotidine 20 mg tablet 20 mg PO BID 06/26/24 cetirizine 10 mg capsule (Zyrtec) 10 mg PO DAILY 07/25/24 triamcinolone acetonide 0.1 % 1 applic topical 07/25/24 topical ointment gabapentin 300 mg capsule 300 mg PO HS 10/18/24 rimegepant 75 mg disintegrating 75 mg PO ONCE PRN migraine 11/27/24 tablet (Nurtec ODT) headache #10 tabs acetaminophen 500 mg tablet 1,000 mg (2 x 500 mg) PO TID #90 01/16/25 tabs aspirin 81 mg tablet,delayed 81 mg PO BID #60 tabs 01/16/25 release celecoxib 200 mg capsule 200 mg PO BID #60 caps 01/16/25 dexamethasone 4 mg tablet 4 mg PO DAILY #2 tabs 01/16/25 docusate sodium 100 mg capsule 100 mg PO BID PRN #14 caps 01/16/25 oxycodone 5 mg tablet 5 mg PO Q4H PRN pain #12 tabs 01/16/25 Current Visit Medications: Current Medications Generic Name Dose Route Start Last Admin Trade Name Matq PRN Reason Stop Dose Admin Acetaminophen 1,000 mg 01/16/25 06:00 Acetaminophen 500 Mg Tab PO 01/16/25 23:59 PREOP RAY Celecoxib 400 mg 01/16/25 06:00 Celecoxib 200 Mg Cap PO 01/16/25 23:59 PREOP RAY Ringer's Solution 1,000 mls @ 80 mls/hr 01/16/25 06:00 IV 01/16/25 23:59 INFUSION RAY Cefazolin Sodium/Dextrose 2 gm in 50 mls @ 100 mls/hr 01/16/25 06:00 Ancef Duplex IVPB 01/16/25 23:59 PREOP RAY Tranexamic Acid/Sodium Chloride 1,000 mg in 100 mls @ 600 mls/hr 01/16/25 06:00 IVPB 01/16/25 23:59 PREOP RAY IV Miscellaneous Supplies 1 each 01/16/25 06:00 Iv Access IV 01/16/25 23:59 DIRECTED RAY Sodium Chloride 0 ml 01/16/25 06:00 Normal Saline Flush 10 Ml Syr IV 01/16/25 23:59 PRN PRN Sodium Chloride 0 ml 01/16/25 06:00 Normal Saline 10 Ml Vial IJ 01/16/25 23:59 DIRECTED PRN Sterile Water 0 ml 01/16/25 06:00 Water,Injection,Sterile 10 Ml Vial IJ 01/16/25 23:59 DIRECTED PRN PFSH Active Problems Active Problems: Problem Status Onset Code Chondromalacia, 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 CT scan of abdomen and pelvis with contrast. Check cbcd, cmp, tsh/r. (per referral) Hiatal hernia Prolonged QT interval IBS (irritable bowel syndrome) Depression Asthma Gastroesophageal reflux disease Hyperlipidemia Surgical History Surgical History History of arthroscopy of hip History of colonoscopy 11/24/2015 (normal) History of esophagogastroduodenoscopy (EGD) (~07/2024) Last egd 2016 Repair ankle Dilation and curettage x3 Arthroplasty of knee pt. reports knee was scope with plica removal Tobacco Smoking/Tobacco Use Status: Never Passive smoking exposure: No Alcohol Alcohol Intake: current Alcohol intake frequency: a few times a month Alcohol type: wine and hard liquor Substance Use Substance use: Never Substance use type: does not use Prental History History Para 2 Hx # Term Pregnancies Multiple births Hx # Pregnancies Ectopic pregnancies AB induced Hx Number of Living Children AB spontaneous Vital Signs and Lab Results Vital Signs Most Recent Vital Signs in EMR: Temp Pulse Resp BP Pulse Ox 36.5 C 74 16 141/90 H 97 01/16/25 06:20 01/16/25 06:20 01/16/25 06:20 01/16/25 06:20 01/16/25 06:20 Lab Results Blood Type / Crossmatch: No Data to Display Complete Blood Count: White Blood Count 6.05 10^3/uL (4.4-10.8) 01/04/25 08:46 Red Blood Count 4.85 10^6/uL (3.93-5.22) 01/04/25 08:46 Hemoglobin 14.8 g/dL (11.2-15.7) 01/04/25 08:46 Hematocrit 44.2 % (36.0-46.0) 01/04/25 08:46 Platelet Count 295 10^3/uL (130-400) 01/04/25 08:46 Complete Metabolic Panel: Sodium 140 mmol/L (136-145) 01/04/25 08:46 Potassium 4.5 mmol/L (3.5-5.1) 01/04/25 08:46 Chloride 105 mmol/L (98-107) 01/04/25 08:46 Carbon Dioxide 26.2 mmol/L (21.0-32.0) 01/04/25 08:46 BUN 16 mg/dL (7-18) 01/04/25 08:46 Creatinine 0.9 mg/dL (0.55-1.02) 01/04/25 08:46 Est GFR (CKD-EPI 2020) 77.88 (mL/min/1.73m2) 01/04/25 08:46 Calcium 9.2 mg/dL (8.5-10.1) 01/04/25 08:46 Glucose 110 mg/dL (74-106) H 01/04/25 08:46 Liver Function Panel: No Data to Display Coagulation Panel: No Data to Display Cardiac Panel: No Data to Display Arterial Blood Gas: No Data to Display Venous Blood Gas: No Data to Display Pancreas Panel: No Data to Display Thyroid Panel: No Data to Display Infectious Disease: No Data to Display Blood Cultures: No Data to Display Toxicology Panel: No Data to Display Panel: No Data to Display Imaging and Studies Imaging and Studies Study information below may be from another EMR and interpreted by another provider. Please see original notes in EMR for more complete details. EKG Summary: 01/20/21: Exam: Resting ECG Patient Location: E HR:72 bpm ECG Measurements Heart Rate 72 AXIS WY 171 P 58 QRSd 98 QRS -24 QT 400 T38 QTc 439 Conclusion Sinus rhythm...normal P axis, V-rate 60- 99 I have reviewed and I agree with the emergency room physician???s ECG interpretation. Anesthesia Assessment and Plan Anesthesia History Personal History: No History of Anesthesia Complications Family History: No Family History of Anesthesia Complications Exercise Tolerance Exercise Tolerance: Metabolic Equivalents>4 Cardiac & Pulmonary Exam Cardiac Exam: Normal S1/S2 Heart Sounds Pulmonary Exam: Clear Bilateral Breath Sounds Implantable Cardiac Device Does patient have a Pacemaker or an ICD?: No Airway Exam Known Difficult Airway: No Mallampati Class: 2 Mouth Opening: Normal (> 3cm) Thyromental Distance: Greater than 3 cm Neck Range of Motion: Full ROM Neck Circumference: Normal Teeth Condition: Normal Dentition ASA Classification ASA Score: ASA 2 Emergency Case?: No NPO Status NPO Status: NPO Clears >2 hours, Solids >8 hours Status Status: Negative HCG Anesthesia Plan Resuscitation Status: Full Code Anesthesia Technique: Spinal Anesthesia Airway Planned: Natural Airway Monitors Used: Standard Monitors Preoperative Comments:: 49 yo female for JOSH. Sig PMHx: long QT (QTc on last 12 lead 439. was due to a medication for depression she believes, she does not recall which drug), asthma (albuterol), GERD (Nexium, famotidine. ), migraine (nurtec, ajovy - well controlled, no triggers), depression (paroxetine). never smoker, occ EtOH. ECG: sinus, QTc 439. Previous Anes: - EGD, prop, natural airway, no issues. - hip scope, prop, fent, mac 3 grade 1, easy mask. no issues. Discussed spinal vs general. Discussed that if we do a spinal that she would have to be more on the awake side due to her reflux (double agents, sleeps with multiple pillows) and that she may remember portions of the procedure - she is okay with this. She is also aware that we can convert to GAETT at any point that she is uncomfortable or that she has difficulty with reflux.
[2025-01-16] MEDS: Celecoxib 200 MG CAP 400 MG PO (06:59)
[2025-01-16] MEDS: Acetaminophen 500 MG TAB 1000 MG PO (06:59)
--- NOTE | 2025-01-16 07:13 | PDOC.DSDIS_ITS ---
Date of service: 01/16/25 Discharge Plan Disposition Patient Disposition: Home Condition: Good Discharge Details Reason For Visit: R THR Attending Provider: Adiel Christine Primary Care Provider: Rachel Murray Home Meds and New Rx's Prescriptions: New acetaminophen 500 mg tablet 1,000 mg PO TID Qty: 90 3RF aspirin 81 mg tablet,delayed release (DR/EC) 81 mg PO BID Qty: 60 0RF celecoxib 200 mg capsule 200 mg PO BID Qty: 60 0RF dexamethasone 4 mg tablet 4 mg PO DAILY Qty: 2 0RF docusate sodium 100 mg capsule 100 mg PO BID PRNQty: 14 0RF oxycodone 5 mg tablet 5 mg PO Q4H MDD 6 tabs PRN (Reason: pain) Qty: 12 0RF Continued fluticasone propionate 50 mcg/actuation spray,suspension 1 spray intranasal BID Rx Instructions: administer into each nostril polyethylene glycol 3350 [Miralax] 17 gram/dose powder 17 g PO DAILY Ajovy Autoinjector 225 mg/1.5 mL auto-injector 225 mg subcut QMONTH Qty: 1.5 11RF famotidine 20 mg tablet 20 mg PO BID calcium carbonate [Tums] 200 mg calcium (500 mg) tablet,chewable 200 mg PO BID PRN Zyrtec 10 mg capsule 10 mg PO DAILY albuterol sulfate 90 mcg/actuation HFA aerosol inhaler 2 puff inhalation Q6H PRN prochlorperazine maleate 5 mg tablet See Rx Instructions PO TID PRN (Reason: headaches ) Qty: 30 3RF Rx Instructions: 5-10 mg PO three times a day PRN; vitamin B complex Tablet 1 tab PO DAILY Probiotic (B. coagulans) 10 billion cell capsule,delayed release(DR/EC) 10 cell PO DAILY paroxetine HCl [Paxil] 10 mg tablet 10 mg PO DAILY Nurtec ODT 75 mg tablet,disintegrating 75 mg PO ONCE PRN (Reason: migraine headache) Qty: 10 5RF Rx Instructions: as a single dose; no more than 1 tab per day; do not take more often than every 24 hours bupropion HCl [Wellbutrin SR] 100 mg tablet sustained-release 12 hr 200 mg PO DAILY esomeprazole magnesium [Nexium] 40 mg capsule,delayed release(DR/EC) 40 mg PO DAILY acetylcysteine [NAC] 600 mg capsule 600 mg PO DAILY gabapentin 300 mg capsule 300 mg PO HS multivitamin [Daily Multi-Vitamin] 1 EACH tablet 1 ea PO DAILY triamcinolone acetonide 0.1 % ointment 1 applic TOPICAL Discontinued naproxen sodium [Aleve] 220 mg capsule 220 mg PO BID PRN acetaminophen [Mapap Extra Strength] 500 MG tablet 1 tab PO PRN PRN Discharge Instructions Additional Instructions: Total Hip Discharge Instructions Activity: The most important activity is to walk. You should try to take short walks a few times a day. You have no restrictions on movement or positioning, but do not try to force what you do. You will find some stiffness and weakness with hip flexion (lifting your knee). Do not try to strengthen this too early, continue to practice walking and stairs and this will come. - Outpatient physical therapy can be helpful to help return you to a normal gait and improve your flexibility and strength. This can start around 2 weeks. For some patients, it?s not necessary. Usually this is determined at the time of discharge or at the first post-operative visit. - You should wear the LONI hose on both legs for 2 weeks. Dressing: Keep the surgical dressing in place for at least one week. After the first week it may be removed and replace with light gauze and tape or nothing. It may get wet after 3 days but avoid soaking the dressing. If it gets wet, just lightly pat dry. It is important to always keep some gauze between skin folds, especially when you are sitting. Spend some time with the wound exposed when you are lying flat as the incision does wrinkle onto itself. Medications: - You should take Tylenol and an anti-inflammatory Celebrex as your primary pain control medications. If the Celebrex is too expensive or not covered, please call the office for another alternative (Advil/Ibuprofen or Naproxen/Aleve). - You have been prescribed a stronger pain medication Oxycodone for breakthrough pain, take as needed as prescribed. - You will continue your esomeprazole to help reduce stomach acid and reflux. - You have also been prescribed Decadron to help with post-operative nausea and pain. You will take this for two days starting tomorrow. - You will be taking Aspirin 81mg twice a day for DVT prevention unless instructed otherwise. - If you have constipation you should take Colace or Miralax (both [id number]). It takes most people 3-4 days to have a bowel movement. Follow-up: 2 weeks If you have any acute concerns or questions, please do not hesitate to contact the office at [phone]. You may contact Dr. Christine with any questions after hours through the hospital at [phone] or on his cell phone at [phone]. Referrals: Adiel Christine MD [ [facility] STAFF PHYSICIAN] - Equipment/Supplies: Walker Activity:: Activity as Tolerated Shower/Bathe:: 72 hours Diet:: As Tolerated Discharge Orders Discharge Orders: Discharge Order (Routine); Ordered 01/16/25 Ordered By: Ricardo Deras DS: Diagnosis Discharge Diagnosis (1) Chondromalacia, right hip: Status: Acute
[2025-01-16] MEDS: Lactated Ringers 1,000 ML 80 ML IV (07:20)
[2025-01-16] MEDS: ceFAZolin 2 GM/50 ML BAG IVPB (07:38)
[2025-01-16] MEDS: TRANEXAMIC ACID/SOD. CHL. 1,000 MG/100 ML BAG 600 MG IVPB (07:47)
--- NOTE | 2025-01-16 07:50 | W.PM.OP ---
Operative Note Operative Note PRE-OP DIAGNOSIS: Right Hip Osteoarthritis POST-OP DIAGNOSIS: same PROCEDURE: Right Anterior Total Hip Arthroplasty with Intraoperative Navigation SURGEON: Adiel Christine PROFESSOR OF POLITICAL SCIENCE: Ricardo Deras ANESTHESIA TYPE: Spinal Refer to Anesthesia Record ESTIMATED BLOOD LOSS: 150 PATHOLOGY: none sent TOURNIQUET TIME: 0 COMPLICATIONS: None Patient was transported to: PACU Patient's condition: stable Implants: 1. Depuy Bell Acetabular Component, 50mm 2. Depuy Acetabular Liner, [id number] 3. Depuy Actis Standard Collared Femoral Stem, Size 3 4. Depuy Altrx Ceramic Femoral Head, Size 32+5mm Indications: I have seen Cata in clinic for symptoms of hip arthritis, confirmed with radiographic findings. She has exhausted nonoperative methods and was having significant limitations in daily function and desired better function and less pain. I discussed the technical details of a hip replacement. I explained the risks of the procedure to include, but not limited to, bleeding, infection, pain, stiffness, fracture, damage to nerves and vessels, damage to muscles and tendons, loosening, instability, leg length inequality, need for repeat procedure, blood clot and cardiopulmonary demise. Despite these risks, Cata elected to proceed. Procedure Description: Cata was greeted in the preoperative holding area where the correct side was identified and marked. The consent was reviewed with the patient and signed. The history and physical was updated. All questions were answered. She was taken back to the operating room. A spinal anesthestic was then administered. The feet were wrapped with cast padding and Coban and then placed into the boot liners and then into the boots. Care was taken to protect the skin and make sure the heels were fully down and the boots were stable. The patient was then positioned onto the HANA table. Both legs were held in a neutral position. SCDs were applied. The patient was then slid down onto a peroneal post. Prophylactic antibiotics in the form of Cefazolin were administered. 1g of Tranxemic Acid was given intravenously within 30 minutes of incision. The right leg was then prepped with Chloraprep and draped in a standard fashion. A second prep with Chloraprep was performed prior to placement of a shower-curtain type drape with Iodine impregnated skin protection. A timeout to confirm correct identity, side and site, procedure, allergies, anesthesia, and medical concerns was performed. An obliquely oriented incision was made starting lateral to the ASIS and running distal over the Tensor Fascia Tabatha (TFL) muscle belly toward the fibular head, approximately 10cm. The skin and soft tissue was dissected sharply, through Jeronimo?s fascia, and to the fascia of the TFL. With the fascia and superior border of the IT band identified, the fascia was incised with a new knife just above any perforators from the IT band. The TFL muscle belly was bluntly dissected away from the fascia and moved laterally. The fat between TFL and rectus was identified to ensure the dissection was not within the TFL. Blunt dissection created space between abductors and the capsule and retractor was placed over the lateral femoral neck. The fibers of the rectus femoris tendon were identified and these were freed from the anterior capsule. A second cobra retractor was placed around the medial femoral neck. The TFL was further retracted laterally to show the deep fascia. Careful dissection through this layer identified three main crossing vessels of the lateral femoral circumflex. These were cauterized in multiple locations and then cut without any noticeable bleeding. The TFL was further released bluntly from the deep fascia to expose anterior hip capsule and fat The soft tissue orthopaedic retractor was then placed beneath the TFL and against sartorius and medial soft tissues to protect and retract the soft tissues. A T-capsulotomy was then performed starting at the superior lateral acetabulum and moving distally to the intertrochanteric ridge. These capsular flaps were tagged with a No. 1 Vicryl and elevated from within. The capsular flaps were released to the shoulder of the lateral neck and to the lesser trochanter to give excellent visualization of the proximal femur. A neck osteotomy was performed using an oscillating saw based on preoperative templates. This cut started in the shoulder and of the lateral neck and exited medially. The saw was at all times directed medially to avoid injury to the greater trochanter. Gross traction was applied to the leg and the osteotomy opened. The femoral head was removed with a corkscrew, making sure to protect the TFL on its exit. Traction was released after head removal. This was measured on the back table to determine the starting reamer size. Portions of the rectus obscuring visualization were minimally elevated off the superior acetabulum. An anterior retractor was placed over the anterior wall between capsule and labrum and attached to the Gripper retraction system. The femur was rotated to 90 degrees and medial capsule was fully released until the lesser trochanter was palpable and visible; the femur was returned to 30 degrees. A posterior retractor was placed similarly between capsule and labrum. This provided excellent visualization. The contents of the cotyloid fossa were removed with electrocautery and the labrum was removed with a knife. There was some chondromalacia of the superior acetabulum. Acetabular reaming began with a 44mm reamer. This first reaming was directed anterior to posterior and medial to get down to the true floor. This was inspected and reamed until the true floor was reached. The anterior retractor was then released and entry and exit was provided by traction on the capsular flaps. I then reamed sequentially up to a 50mm reamer where good fit was obtained. The larger reamers were oriented based on anatomical reference of the anterior and lateral bragg to ensure proper abduction and anteversion. Positioning and size was confirmed with the fluoroscopy. A 50mm Depuy Bell acetabular component was selected. The acetabulum was reamed around the periphery with the selected acetabular size to prevent a rim fit. The deep tissues were irrigated. The acetabular component was then impacted in a position of about 40-45 degrees of abduction and 15-20 degrees of anteversion, using the patient?s anatomy as the ultimate landmark. Fluoroscopy was used to confirm this. There was excellent pattern cleaner of the acetabular component and the inserting handle was removed. The acetabular liner, Depuy [id number] polyethylene liner, was inserted and lined up with the tines of the acetabular component. There was no soft tissue interposition. The liner was then impacted into position and confirmed to be well-seated. A portion of the sierra-articular cocktail was then injected around the acetabulum into the capsule and periosteum. This cocktail consisted of 123mg of Ropivacaine, 0.25mg of Epinephrine, 0.04mg of Clonidine, and 15mg of Ketorolac, diluted to 50cc. The leg was rotated to 120 degrees. Any remaining medial capsule was released until the lesser trochanter was easily palpable. A retractor was placed medially. The lateral capsule was further released into the shoulder to allow access to the greater trochanter. A Ogden retractor was placed over the greater trochanter which allowed the trochanter to flip in front of the capsule for excellent exposure. The leg was brought down into maximal extension and 20 degrees of adduction while ensuring there was no impingement on the acetabulum. Any remnant capsule within the trochanter was released. Piriformis and obturator externis were identified and protected. There was excellent access to the proximal femur. The lateral neck remnant was removed with a rongeur. A blunt canal probe was used to identify the canal and trajectory for later broaching. A box osteotome initiated the broach course. A small curved rasp and a curved curette were used to work laterally. Broaching then began with a starter Actis broach. This was inserted manually around the trochanter and into the canal before mallet blows. The broach was seated to the neck cut level based on the neck cut and the preoperative template. Sequential broaching was continued with the [employer] pneumatic broaching device until a tight fit was obtained with good rotational control of the femur. A trial standard neck was inserted along with a +5 trial head. The leg was brought out of extension and adduction and then reduced with traction and internal rotation. The leg was stable anteriorly in a position of 30 degrees of extension and 90 degrees of external rotation. Fluoroscopy was used to ensure there was no fracture and the stem was seated well. Leg lengths were checked with an AP pelvis and pelvic reference points. [employer] navigation system was used to confirm appropriate positioning and leg length and offset. The stem was advanced about 3mm. Once content with the desired offset and leg lengths, the leg was brought back into extension, external rotation and adduction. The periosteum and surrounding tissue was injected with remaining portion of the sierra-articular cocktail. The proximal femur was irrigated as well as the deep tissues. The Depuy Actis standard collared stem, size 3, was then manually inserted into the proximal femur making sure to control rotation. It was then malleted into position with light blows, giving breaks to allow bone expansion and decrease risk of fracture. The selected Depuy Altrx Ceramic Head, size 32+5mm, was then placed onto the clean and dry trunnion and secured with impaction onto the tapered fit. The leg was brought back out of extension and adduction and reduced with traction and internal rotation. Stability was confirmed with no shuck at 90 degrees of external rotation and 30 degrees of extension. No impingement through range of motion arc. Final x-ray images were obtained with fluoroscopy to confirm adequate positioning and no intraoperative fracture. The deep tissues were thoroughly irrigated with Surgiphor, betadine solution. This was allowed to sit in the wound for 3 minutes before being thoroughly irrigated out with normal saline. The capsule was then reapproximated with the previously placed sutures and the indirect head of the rectus was inspected and reapproximated with a #1 Vicryl. The TFL fascia was finally closed with a No. 2 Stratafix, barbed suture. Deep tissues were then reapproximated with 0 Vicryl and a running 2-0 Vicryl. The skin was closed with a running 4-0 Monocryl in a subcuticular fashion. This was reinforced with skin glue. A Mepilex silver dressing was applied. At the end of the case, all counts were correct. Cata was transferred to the hospital bed without difficulty and suffering no apparent complication. Cata has a good prognosis. Physical therapy will start today and without restrictions, weight-bearing as tolerated. Aspirin 81mg BID will be used for DVT prophylaxis. Date of Procedure: 01/16/25
--- NOTE | 2025-01-16 09:01 | DI.RAD_ITS ---
Exam(s) XR HIP RT IN OR EXAM: XR HIP RT IN OR CLINICAL HISTORY: Chondromalacia, right hip TECHNIQUE: 2D and realtime digital imaging was performed. CONTRAST MATERIAL: Refer to procedure report. COMPARISON: CR XR HIP RT AP LAT ONLY from 07/25/2024 MR MR LOWER JOINT RT WO from 09/25/2024 FINDINGS: Fluoroscopy was provided for Dr. Christine during the performance of a right total hip arthroplasty. Please refer to the procedure report for complete details. Ka,r=5.37 mGy IMPRESSION: RADIATION DOSE DELIVERED: 0.0 0.0 0
[2025-01-16] MEDS: fentaNYL 100 MCG/2 ML VIAL IVP ×3 (09:26→09:48)
--- NOTE | 2025-01-16 09:50 | W.ANESPOSTOP ---
Postoperative Evaluation Date, Time and Location Date Performed: 01/16/25 Time Performed: 09:50 Patient Location: PACU Vital Signs Most Recent Imported Vital Signs: Most Recent Vital Signs Temp Pulse Resp BP Pulse Ox 36.4 C L 69 17 111/65 94 01/16/25 09:32 01/16/25 09:40 01/16/25 09:41 01/16/25 09:40 01/16/25 09:40 Pain Score Most Recent Pain Score: Most Recent Pain Score Pain Level 7 01/16/25 09:32 Assessment Mental Status: Awake (Alert & Oriented to Patient Baseline) Airway and Respiratory Function: Patent airway with normal (patient baseline) respiratory exam Cardiovascular Function: Hemodynamically Stable Hydration Status: Adequately Hydrated Nausea & Vomiting: No Nausea or Vomiting Pain: Pain is Moderate or Severe Postoperative Pain Management: Pain being addressed with medication Peripheral Nerve Block: Patient did not receive a nerve block
[2025-01-16] MEDS: oxyCODONE 5 MG TAB PO (10:38)
[2025-01-16] MEDS: Normal Saline Flush 10 ML SYR IV ×2 (10:50→11:45)
--- NOTE | 2025-01-16 11:03 | PT.INIE ---
PT Notes Visit Reasons: R THR Physical Therapy Day Surgery Initial Evaluation Date: 01/16/2025 Referring Doctor: RADHA Rice PT Orders: PT CONSULT: S/P Ortho Surgery Precautions: WBAT on the right LE with AD. Patient Profile/Admitting Diagnosis: Cata is a 49-year-old female with longstanding right hip pain related to chondromalacia of the right hip and is status post right total hip arthroplasty on postoperative day 0. PMHX: Medical History Abdominal pain unsure of etiology, whether r/t constipation, ibs, diverticulitis, ?appendix. CT scan of abdomen and pelvis with contrast. Check cbcd, cmp, tsh/r. (per referral) Hiatal hernia Prolonged QT interval IBS (irritable bowel syndrome) Depression Asthma Gastroesophageal reflux disease Hyperlipidemia Surgical History History of arthroscopy of hip History of colonoscopy 11/24/2015 (normal) History of esophagogastroduodenoscopy (EGD) (~07/2024) Last egd 2015Repair ankle Dilation and curettage x3 Arthroplasty of knee pt. reports knee was scope with plica removal Social History/Home Situation: Lives with in a private home with 2 steps to enter without rails. Independent with all aspects of ADLs prior to surgery. Equipment Owned/DME: None Subjective: Mild pain in the R hip. Mild lightheadedenss that minimally limited mobility performance Objective: General Observation: Mepilex Ag over surgical incision. TEDS to be legs. Mental Status: A and O x 4 Pain: 2-3/10 in the R hip ROM: Right Lower Extremity: Hip flexion allows up to 100 degrees. Hip abduction WFL. Knee flexion WFL. Ankle dorsiflexion WFL. Ankle plantarflexion WFL. Left Lower Extremity: Hip flexion WFL. Hip abduction WFL. Knee flexion WFL. Ankle dorsiflexion WFL. Ankle plantarflexion WFL. Strength: Right Lower Extremity: Hip flexors 3-/5. Hip abductors 4-/5. Knee flexors 4/5. Knee extensors 4-/5. Ankle dorsiflexors 5/5. Ankle plantarflexors 5/5. Left Lower Extremity:Hip flexors 5/5. Hip abductors 5/5. Knee flexors 5/5. Knee extensors 5/5. Ankle dorsiflexors 5/5. Ankle plantarflexors 5/5. Sensation: Intact tested pain and light pressure in bilateral lower extremities Bed Mobility/Transfers: Minimal cueing provided for use of B hands as needed for support, movement sequence, AD management, and posture to reduce fall risk and minimize pain report Sit to stand contact-guard assist with FWW Stand to sit standby assist with FWW Bed to chair standby assist with FWW Gait: Facilitate safe and correct performance of level surface ambulation covering a distance of 150 feet with step to gait pattern requiring only standby assist and minimal verbal cueing for AD management, limb movement sequence, weight distribution onto assistive device, and posture to minimize pain report and reduce fall risk. Stairs: Guided patient with safe and correct negotiation of 3 x 4 inch steps and 4 x 6 inch steps while holding onto 1 rail and a using a single-point cane on the other side with step to gait pattern requiring only contact-guard assist and minimal verbal cueing for movement sequence, hand placement, AD management, and posture to minimize pain reported reduce fall risk. Balance: Static Sitting: Normal Dynamic Sitting: Nrmal Static Standing: Fair Dynamic Standing: Fair Special Tests: Mobility Limitations Standardized Measure [facility] AM-PAC 6 clicks Basic Mobility Inpatient Short Form: Raw Score: 11 CMS Score: 23% deficit Informed Consent/Education: Patient instructed in purpose of PT consult. Packet containing JOSH exercise protocol has been given to patient. Education and training on initial set of exercises that can be done at home have been completed with patient. Trained patient with correct performance of exercises below to maximize motor control, joint flexibility, soft tissue extensibility of the R hip musculature to facilitate return to independent functional mobility performance. Access Code: [email or web address] URL: [email or web address] Date: 01/16/2025 Prepared by: Mely Santamaria Exercises - Gluteal Sets - 1 x daily - 7 x weekly - 1 sets - 10 reps - 5 hold - Supine Heel Slide - 1 x daily - 7 x weekly - 1 sets - 10 reps - 5 hold - Supine Ankle Pumps - 1 x daily - 7 x weekly - 1 sets - 10 reps - 5 hold - Seated March - 1 x daily - 7 x weekly - 1 sets - 10 reps - 5 hold - Seated Long Arc Quad - 1 x daily - 7 x weekly - 1 sets - 10 reps - 5 hold Assessment: Patient requires the use of a front wheeled walker for all mobility ADL performance to maximize independence and reduce fall risk. Patient presents with clinical signs and symptoms consistent with current/admitting diagnoses that have resulted to mobility limitations, gait instability, generalized weakness, and impairment of motor control as demonstrated by the following impairment level findings: 1. Decreased strength to R hip major muscle groups 2. Impaired standing balance 3. Limitation of joint range of motion in R hip Impairments are contributing to the following functional limitations: 1. Inability to safely ambulate without assistive device 2. Increase completion time for mobility ADL performance 3. Increased fall risk Patient is assessed as a 22189 moderate complexity based on the following: History: 49-year-old female with impairment level findings, functional limitations, and past medical history as indicated above Examination: Demonstrable impairment in strength, balance, and mobility level with underlying impairments and functional limitations as documented above Presentation: Evolving Decision Makin moderate complexity Goals: N/A. PT evaluation and 1-2 treatment sessions only for functional mobility training using recommended AD and for HEP instruction. Plan of Care/Treatment Plan: N/A. PT evaluation and 1-2 treatment session only for functional mobility training using recommended AD and for HEP instruction. DISCHARGE RECOMMENDATIONS: Home when medically cleared by orthopedic surgeon. Recommend outpatient PT services in order to optimize functional mobility outcomes and facilitate return to independent community ambulation without an assistive device. TREATMENT CODE/TIME: 26315 x 26 minutes for 1 unit (11:03?11: 29). Thank you for the opportunity to participate in the care of this patient. Mely Santamaria PT, DPT, CLT [facility] [place], [place]
[2025-01-16] MEDS: Tranexamic Acid 650 MG TAB 1300 MG PO (11:29)
== END 2025-01-16 12:34 | disposition home or self-care (01) ==
PROVIDERS: PCP Nurse Practitioner Family; Visit Provider Student in an Organized Health Care Education/Training Program
PROC: (CPT 27130; principal; 2025-01-16 07:30)
DX: M94.251 Chondromalacia, right hip (principal); M16.11 Unilateral primary osteoarthritis, right hip
CPT/HCPCS: 27130; 20985; 81025; 97162; 73501; C1776; J0690; J1100; J1790; J2250; J2401; J2405; J2704; J3010

== ENCOUNTER 2025-01-31 10:05 | Outpatient (CLI) | payer BC, SELFPAY ==
--- NOTE | 2025-01-31 09:45 | DI.RAD_ITS ---
Exam(s) XR HIP RT COMPLETE AP PELVIS EXAM: XR HIP RT COMPLETE AP PELVIS INDICATION: 1ST POST OP S/P R JOSH. COMPARISON: CR XR HIP RT AP LAT ONLY from 07/25/2024 TECHNIQUE: 2D digital imaging was performed. Three views. FINDINGS: The alignment of the right hip prosthesis is unchanged. There are no abnormal surrounding bony lucenc ies. IMPRESSION: DATA REPOSITORY: RADIATION DOSE DELIVERED:
== END 2025-01-31 10:06 | disposition home or self-care (01) ==
LOC: DIORS 10:05
PROVIDERS: PCP Nurse Practitioner Family; Visit Provider Student in an Organized Health Care Education/Training Program
DX: Z96.641 Presence of right artificial hip joint (principal)
CPT/HCPCS: 73502

== ENCOUNTER 2025-02-25 04:39 | Outpatient (CLI) | payer BC, SELFPAY ==
[2025-02-25 08:28] LABS: ESR 27 mm/hr (0-30)
[2025-02-25 09:57] LABS: ALT 62 U/L (14-59); AST 36 U/L (15-37); Albumin 3.6 g/dL (3.4-5.0); Alkaline Phosphatase 93 U/L (46-116); Bilirubin, Direct 0.1 mg/dL (0.0-0.2); Bilirubin, Total 0.3 mg/dL (0.2-1.0); C-Reactive Protein 0.67 mg/dL (<or=0.5); TSH 1.54 uIU/mL (0.36-3.74); Total Protein 7.3 g/dL (6.4-8.2)
[2025-02-26 09:09] LABS: HBs Antibody, Quant >1000.0 mIU/mL (See Note); Hepatitis B Surface Ab Positive (See Note)
[2025-02-26 12:19] LABS: Hepatitis C Ab w Rflx HCV PCR Negative (Negative)
[2025-02-26 12:33] LABS: Hep B Core Antibody Negative (Negative)
[2025-02-26 15:29] LABS: ANA Interpretation Negative (Negative)
[2025-02-26 19:09] LABS: Vitamin D 25 Total 33 ng/mL (30-100)
== END 2025-02-25 04:40 | disposition home or self-care (01) ==
PROVIDERS: PCP Nurse Practitioner Family; Visit Provider Dermatology
DX: L50.3 Dermatographic urticaria (principal); L29.9 Pruritus, unspecified; R89.9 Unspecified abnormal finding in specimens from other organs, systems and tissues
CPT/HCPCS: 36415; 80076; 82306; 85652; 86704; 86706; 86803; 84443; 86038; 86140

== ENCOUNTER 2025-05-30 15:30 | Outpatient (CLI) | payer BC, SELFPAY ==
--- NOTE | 2025-05-30 14:30 | DI.RAD_ITS ---
Exam(s) XR HIP RT AP LAT ONLY EXAM: XR HIP RT AP LAT ONLY INDICATION: F/U R JOSH. COMPARISON: CR XR HIP RT COMPLETE AP PELVIS from 01/31/2025 TECHNIQUE: 2D digital imaging was performed. Two views. FINDINGS: There has been no change in the alignment of the right hip prosthesis. There are no abnormal surrounding bony lucencies. DATA REPOSITORY: RADIATION DOSE DELIVERED:
== END 2025-05-30 15:31 | disposition home or self-care (01) ==
LOC: DIORS 05-31 09:34
PROVIDERS: PCP Nurse Practitioner Family; Visit Provider Student in an Organized Health Care Education/Training Program
DX: Z96.641 Presence of right artificial hip joint (principal)
CPT/HCPCS: 73502

== ENCOUNTER 2025-06-27 15:21 | Outpatient (REF) | payer BC, SELFPAY ==
[2025-06-27 18:41] LABS: ALT 74 U/L (14-59); AST 38 U/L (15-37); Albumin 4.0 g/dL (3.4-5.0); Alkaline Phosphatase 82 U/L (46-116); Anion Gap 12.7 mmol/L (3-11); BUN 26 mg/dL (7-18); Bilirubin, Total 0.3 mg/dL (0.2-1.0); CO2 22.3 mmol/L (21.0-32.0); Calcium 9.2 mg/dL (8.5-10.1); Calculated LDL 134 mg/dL (<100); Chloride 105 mmol/L (98-107); Cholesterol 234 mg/dL (<200); Estimated GFR 104.65 (mL/min/1.73m2); Glucose 127 mg/dL (74-106); HDL Cholesterol 44 mg/dL (>or=50); Magnesium 2.0 mg/dL (1.8-2.4); Potassium 4.5 mmol/L (3.5-5.1); Sodium 140 mmol/L (136-145); Total Protein 7.0 g/dL (6.4-8.2); Triglyceride 284 mg/dL (<150); Vitamin B12 715 pg/mL (193-986)
== END 2025-06-27 15:22 | disposition home or self-care (01) ==
LOC: NCHCN 15:21
PROVIDERS: PCP Nurse Practitioner Family; Visit Provider Nurse Practitioner Family
DX: K21.9 Gastro-esophageal reflux disease without esophagitis (principal); E78.5 Hyperlipidemia, unspecified
CPT/HCPCS: 80053; 80061; 82607; 83735